=== PATIENT | male | born 1945 | race Caucasian/White ===

== ENCOUNTER 2020-01-30 17:57 | Inpatient (IN) ==
[~2020-01-30 17:57] MED LIST: HEPARIN (PORCINE) 1000 UNIT/ML 10 ML (CATH LAB USE ONLY) ONE; MIDAZOLAM HCL 1 MG/ML 2ML VIAL ONE; NITROGLYCERIN/D5W 100MCG/ML 20ML SYR ONE; fentaNYL citrate 100 MCG/2 ML VIAL ONE; niCARdipine HCL INJ 2.5 MG/ML 10 ML AMP ONE
--- OUTSIDE RECORDS SUMMARY | 2020-01-30 17:59 | External Medical Summary | Continuity of Care Document ---
:1945 Author Name Alcon Sandoval Address Unavailable Unavailable , Care Team Providers Name Role Phone Matthias Sandoval Unavailable [email or web address] Active medical history not documented Allergies and Adverse Reactions Allergy history not documented Medications Medications not documented Procedures Procedures not documented Immunizations Immunizations not documented Plan of Treatment Planned Observations Planned Goals not documented Results No Known Results Results not documented
--- NOTE | 2020-01-30 18:07 | Emergency Department Note ---
History of Present Illness General Chief complaint: Heart Alert Stated complaint: FALL, ORAL INJUIRES, CHEST PAIN, Source: patient and EMS Mode of arrival: EMS Limitations: no limitations History of Present Illness Provider complaint: Chest pain, syncope, facial injury Onset (ago): hour(s) 2 Location: face and chest Radiation: non-radiation Severity: moderate Pain Consistency: + constant Current Pain Intensity: 5 Quality: + constant Relieved By: + none Exacerbated By: + movement Associated symptoms: + syncope; no fever/chills, no nausea/vomiting and no shortness of breath This is a 75-year-old male brought in via EMS as a heart alert which was called prior to their arrival. Patient states around 330 this afternoon he was in his workshop when he began having chest pain, dizziness, and then passed out. Patient states he came to very quickly although felt so bad he could not get up off the floor. Patient did not have a phone nearby to call for help. Until a passerby found him he laid there on the floor. They called 911. On EMS arrival patient was found to be bradycardic, hypotensive, diaphoretic and pale with complaints of active chest pain. There EKG was concerning for a STEMI. A heart alert was called. Patient remained bradycardic and borderline hypotensive in route. Patient was given 75 mcg of fentanyl in route due to pain. Patient was also given 4 baby aspirin. Nitro was withheld due to hypotension and concern for inferior heart attack. Prior to patient arrival, case management was able to obtain recent outpatient records on the patient from [facility] EMR. Patient has had 3 prior cardiac catheterizations with apparent stenting to the LAD and RCA. Patient takes a baby aspirin, no other anticoagulation. Patient sees Dr. Pedroza, cardiology. Last cardiac catheterization was in 2014. Patient denies any current headache, abdominal pain, nausea or vomiting, vision changes, or tinnitus. Patient states he is still having pain, however it was mildly improved following the fentanyl, and is still nonradiating. Patient denies any difficulty breathing. Patient denies any recent illness. Patient states his tetanus shot is up-to-date. Patient states he is aware he is missing his 2 front teeth as these were part of dentures in place. Dr. Jain presented to the room shortly after patient's arrival. Pt seen during a time of high acuity and national emergency pandemic while wearing PPE. Home Medications Medication Instructions Recorded Confirmed Type aspirin [Aspir-Low] 81 mg PO DAILY 01/30/20 01/30/20 History cholecalciferol (vitamin D3) 25 mcg PO DAILY 01/30/20 01/30/20 History furosemide 20 mg PO 2XWK 01/30/20 01/30/20 History isosorbide mononitrate 120 mg PO DAILY 01/30/20 01/30/20 History latanoprost 1 drp OPB HS 01/30/20 01/30/20 History lisinopril 20 mg PO DAILY 01/30/20 01/30/20 History metoprolol tartrate 25 mg PO QPM 01/30/20 01/30/20 History metoprolol tartrate 50 mg PO QAM 01/30/20 01/30/20 History nitroglycerin 0.4 mg SUBLINGUAL .PRN/UD PRN 01/30/20 01/30/20 History omega 2-kgj-lbr-fish oil [Fish Oil] 1 cap PO DAILY 01/30/20 01/30/20 History potassium citrate 10 meq PO BID 01/30/20 01/30/20 History rosuvastatin 20 mg PO DAILY 01/30/20 01/30/20 History Allergies Allergy/AdvReac Type Severity Reaction Status Date / Time simvastatin AdvReac myalgia Unverified 01/30/20 21:50 Past Med/Surg History Medical History CAD (coronary atherosclerotic disease) Hyperlipidemia Hypertension Social History Smoking Status: Never smoker Do You Dip or Chew Tobacco: Yes; Tobacco Cessation Education Requested by Patient: No Hx Alcohol Use: Yes Alcohol type: beer Hx Substance Use: No Preferred Language: Hebrew Communication Ability: Effective Director Community Organization Required: No Beliefs That Will Affect Care: None Current Living Situation: Alone Other Information That Helps Us Care for You: No Feels Safe at Home: Yes Safety Concerns: Feels Safe At This Time Assistive Devices: Glasses Review of Systems See HPI for pertinent positives & negatives. and A total of 10 systems reviewed and were otherwise negative Physical Exam Vital Signs Vital Signs - 24 hr 01/30/20 18:04 01/30/20 18:09 01/30/20 18:10 Temperature 36.7 C Temperature Source Oral Pulse Rate 48 L Respiratory Rate 16 Blood Pressure 116/47 L Blood Pressure Mean 70 Pulse Oximetry 90 90 90 Oxygen Delivery Method Room Air Room Air Room Air Sepsis Recent Fever Within 48 Hours No Sepsis New/Unexplained Change in Mental Status N/A Sepsis Action Taken by Nursing No Action Required GENERAL: alert, unwell appearing, well nourished, no distress, non-toxic HEAD: nc/at, no green sign, no raccoon eyes, no midface instability EYE EXAM: normal conjunctiva, PERRL and EOM's grossly intact OROPHARYNX: no exudate, no erythema, lips, buccal mucosa, and tongue normal and mucous membranes are moist, front 2 teeth from partial dentures are missing, EMS reported they were laying on the ground on scene, no additional blood noted to the gums or in the oropharynx, slight edema and dried blood noted at lower lip with through and through laceration below approximately 2 cm on external surface of chin, no active bleeding NECK: supple, no nuchal rigidity, no adenopathy, non-tender, FROM LUNGS: Clear to auscultation. Normal chest wall mechanics, no w/r/r HEART: no murmurs, S1 normal and S2 normal CHEST WALL: No ecchymosis, no crepitus, no evidence of trauma ABDOMEN: abdomen soft, non-tender, normo-active bowel sounds, no masses, no rebound or guarding. No evidence of trauma. BACK: Back is symmetrical on inspection and there is no deformity, no midline tenderness, no CVA tenderness. SKIN: no rashes and no bruising UPPER EXTREMITIES: upper extremities are grossly normal. FROM, nml pulses b/l. No evidence of trauma. LOWER EXTREMITIES: No pitting edema. FROM, nml pulses b/l. No evidence of trauma. NEURO EXAM: Normal sensorium, cranial nerves II-XII grossly intact, normal speech, no gross weakness of arms, no gross weakness of legs. Gross sensation intact. Course Administered Medications Acetaminophen (Acetaminophen 325 Mg Tab) 325 mg PO Q6H PRN PRN Reason: Mild Pain Stop: 03/01/20 04:34 Last Admin: 01/31/20 07:59 Dose: 325 mg Documented by: [id number] Aspirin (Aspirin 81 Mg Ectab) 81 mg PO QAM [facility] Stop: 03/01/20 08:59 Last Admin: 01/31/20 08:00 Dose: 81 mg Documented by: [id number] Hydromorphone HCl (Hydromorphone Inj 0.5 Mg/0.5 Ml Syr) 0.5 mg IV Q3H PRN PRN Reason: Pain Stop: 02/13/20 21:20 Last Admin: 01/31/20 02:42 Dose: 0.5 mg Documented by: [id number] Insulin Aspart (Insulin Aspart 100 Units/Ml 3 Ml Pen) 0 units SC ACHS JAVIER Stop: 03/01/20 11:29 Last Admin: 01/31/20 12:12 Dose: 10 units Documented by: [id number] Cosigned by: [id number] Insulin Glargine (Insulin Glargine Solostar 100 Units/Ml 3 Ml Pen) 5 units SC BID [facility] Stop: 03/01/20 08:59 Last Admin: 01/31/20 09:18 Dose: 5 units Documented by: [id number] Cosigned by: [id number] Latanoprost (Latanoprost 0.005% Op Soln 2.5 Ml Btl) 1 drops OPB HS [facility] Stop: 02/29/20 21:54 Last Admin: 01/30/20 22:31 Dose: 1 drops Documented by: [id number] Lisinopril (Lisinopril 5 Mg Tab) 5 mg PO QAM [facility] Stop: 03/01/20 08:59 Last Admin: 01/31/20 08:01 Dose: 5 mg Documented by: [id number] Metoprolol Tartrate (Metoprolol Tartrate 25 Mg Tab) 12.5 mg PO BID JAVIER Stop: 02/29/20 20:59 Last Admin: 01/31/20 08:00 Dose: 12.5 mg Documented by: [id number] Admin: 01/30/20 22:14 Dose: 12.5 mg Documented by: [id number] Ticagrelor (Ticagrelor 90 Mg Tab) 90 mg PO BID [facility] Stop: 03/01/20 08:59 Last Admin: 01/31/20 08:01 Dose: 90 mg Documented by: [id number] Tramadol HCl (Tramadol Hcl 50 Mg Tablet) 25 - 50 mg PO Q4H PRN PRN Reason: Pain Stop: 02/29/20 21:20 Last Admin: 01/31/20 06:26 Dose: 50 mg Documented by: [id number] Vitamin D (Cholecalciferol 1,000 Units 25 Mcg Tab) 1,000 units PO DAILY [facility] Stop: 03/01/20 08:59 Last Admin: 01/31/20 09:21 Dose: 1,000 units Documented by: [id number] Discontinued Medications Eptifibatide (Eptifibatide 2 Mg/Ml 10 Ml Vial ([facility] Use Only)) Confirm Administered Dose 20 mg IV .STK-MED ONE Stop: 01/30/20 18:46 Last Admin: 01/30/20 22:30 Dose: Not Given Documented by: [id number] Eptifibatide (Eptifibatide 0.75 Mg/Ml 75mg Vial ([facility] Use Only)) Confirm Administered Dose 75 mg .ROUTE .STK-MED ONE Stop: 01/30/20 18:47 Last Admin: 01/30/20 22:30 Dose: Not Given Documented by: [id number] Fentanyl Citrate (Fentanyl Citrate 100 Mcg/2 Ml Vial) Confirm Administered Dose 100 mcg .ROUTE .STK-MED ONE Stop: 01/30/20 17:57 Last Admin: 01/30/20 22:28 Dose: Not Given Documented by: [id number] Heparin Sodium (Porcine) (Heparin (Porcine) 1000 Unit/Ml 10 Ml ([facility] Use Only)) Confirm Administered Dose 10,000 units .ROUTE .STK-MED ONE Stop: 01/30/20 17:56 Last Admin: 01/30/20 22:28 Dose: Not Given Documented by: [id number] Heparin Sodium (Porcine) (Heparin (Porcine) 1000 Unit/Ml 10 Ml ([facility]wall Stripper Use Only)) Confirm Administered Dose 10,000 units .ROUTE .STK-MED ONE Stop: 01/30/20 19:03 Last Admin: 01/30/20 22:30 Dose: Not Given Documented by: [id number] Heparin Sodium/Sodium Chloride (Heparin In Nss Infusion 1000 Unit/500 Ml (2 U/Ml) Bag) Confirm Administered Dose 3,000 units IV .STK-MED ONE Stop: 01/30/20 17:57 Last Admin: 01/30/20 22:29 Dose: Not Given Documented by: [id number] Sodium Chloride (Nss 1000ml) 1,000 mls @ 100 mls/hr IV .Q10H JAVIER Stop: 01/31/20 03:44 Last Infusion: 01/31/20 08:43 Dose: 0 mls/hr Documented by: [id number] Admin: 01/30/20 22:15 Dose: 100 mls/hr Documented by: [id number] Magnesium Sulfate/Dextrose (Magnesium Sulfate / D5w) 1 gm in 100 mls @ 50 mls/hr IV ONE ONE Stop: 01/31/20 08:54 Last Infusion: 01/31/20 10:01 Dose: 0 mls/hr Documented by: [id number] Admin: 01/31/20 07:59 Dose: 50 mls/hr Documented by: [id number] Potassium Chloride (K Norman / Wtr) 10 meq in 100 mls @ 100 mls/hr IV Q1H JAVIER Stop: 01/31/20 08:54 Last Infusion: 01/31/20 10:01 Dose: 0 mls/hr Documented by: [id number] Admin: 01/31/20 08:46 Dose: 100 mls/hr Documented by: [id number] Infusion: 01/31/20 08:46 Dose: 100 mls/hr Documented by: [id number] Admin: 01/31/20 07:59 Dose: 100 mls/hr Documented by: [id number] Midazolam HCl (Midazolam Hcl 1 Mg/Ml 2ml Vial) Confirm Administered Dose 2 mg .ROUTE .STK-MED ONE Stop: 01/30/20 17:56 Last Admin: 01/30/20 22:28 Dose: Not Given Documented by: [id number] Midazolam HCl (Midazolam Hcl 1 Mg/Ml 2ml Vial) Confirm Administered Dose 2 mg .ROUTE .STK-MED ONE Stop: 01/30/20 19:13 Last Admin: 01/30/20 22:30 Dose: Not Given Documented by: [id number] Nicardipine HCl (Nicardipine Hcl Inj 2.5 Mg/Ml 10 Ml Amp) Confirm Administered Dose 25 mg .ROUTE .STK-MED ONE Stop: 01/30/20 17:56 Last Admin: 01/30/20 22:25 Dose: Not Given Documented by: [id number] Nitroglycerin/Dextrose (Nitroglycerin/D5w 100mcg/Ml 20ml Syr) Confirm Administered Dose 2,000 mcg .ROUTE .STK-MED ONE Stop: 01/30/20 17:57 Last Admin: 01/30/20 22:29 Dose: Not Given Documented by: [id number] Norepinephrine Bitartrate (Norepinephrine Bitartrate 1 Mg/Ml 4 Ml Vial ([facility] Use Only)) Confirm Administered Dose 4 mg .ROUTE .STK-MED ONE Stop: 01/30/20 18:48 Last Admin: 01/30/20 22:30 Dose: Not Given Documented by: [id number] Ondansetron HCl (Ondansetron Inj 2 Mg/Ml 2 Ml Vial) Confirm Administered Dose 4 mg .ROUTE .STK-MED ONE Stop: 01/30/20 18:20 Last Admin: 01/30/20 22:29 Dose: Not Given Documented by: [id number] Potassium Chloride (Potassium Chloride Crtab 20 Meq Tabcr) 40 meq PO ONE ONE Stop: 01/30/20 21:01 Last Admin: 01/30/20 22:15 Dose: 40 meq Documented by: [id number] Ticagrelor (Ticagrelor 90 Mg Tab) Confirm Administered Dose 180 mg PO .STK-MED ONE Stop: 01/30/20 19:57 Last Admin: 01/30/20 20:05 Dose: 180 mg Documented by: [id number] Critical Care Time Critical Care Time: Yes Total Critical Care Time: 35 Critical care of 35 min performed to assess and manage high likelihood of life- threatening STEMI, involving labs and imaging performed with assessment to evaluate ACS diagnosis with frequent reassessment. This time includes bedside time, treatment discussions with patient/family/consultants, documentation time and excludes procedure time. Medical Decision Making Differential Diagnosis Differential diagnoses includes but is not limited to acute coronary syndrome, myocardial infarction, pericarditis, pulmonary embolus, aortic dissection, pneumonia, pneumothorax, musculoskeletal, shingles, esophageal. Medical Records Attestation: I reviewed the patient's medical records. Home Medications Current Medication List: was personally reviewed by me Laboratory Data Attestation: I reviewed the patient's lab results. Result diagrams: 01/31/20 02:21 01/31/20 05:18 Lab Results 01/30/20 01/30/20 01/30/20 Range/Units 18:00 18:06 18:06 WBC 14.64 H (4.8-10.8) K/uL RBC 4.61 L (4.7-6.1) M/uL Hgb 14.0 (14.0-18.0) g/dL Hct 42.1 (42-52) % MCV 91.3 (80-100) fL MCH 30.4 (25-34) pg MCHC 33.3 (32-36) g/dL RDW Std Deviation 48.0 H (36.4-46.3) fL RDW Coeff of Wayne 14.4 (11.5-14.5) % Plt Count 223 (130-400) K/uL MPV 9.5 (7.4-10.4) fL Immature Gran % (Auto) 0.3 % Neut % (Auto) 67.2 % Lymph % (Auto) 20.4 % Antelope % (Auto) 10.2 % Eos % (Auto) 1.8 % Baso % (Auto) 0.1 % Neut # (Auto) 9.83 H (1.4-6.5) K/uL Lymph # (Auto) 2.98 (1.2-3.4) K/uL Antelope # (Auto) 1.50 H (0.11-0.59) K/uL Eos # (Auto) 0.26 (0-0.5) K/uL Baso # (Auto) 0.02 (0-0.2) K/uL Immature Gran # (Auto) 0.05 H (0.00-0.02) K/uL PT (9.0-12.0) Seconds INR (0.9-1.1) APTT (21.0-31.0) Seconds PTT Ratio Activ Coag Time Kaolin (94-140) SECONDS Sodium (136-145) mmol/L Potassium (3.5-5.1) mmol/L Chloride (98-107) mmol/L Carbon Dioxide (21-32) mmol/L Anion Gap (3-11) BUN (7-18) mg/dl Creatinine (0.6-1.4) mg/dl Est Cr Clr Drug Dosing ml/min Est GFR ( Amer) Est GFR (Non-Af Amer) BUN/Creatinine Ratio (10-20) Glucose (70-99) mg/dl Calcium (8.5-10.1) mg/dl Magnesium (1.8-2.4) mg/dl Total Bilirubin (0.2-1) mg/dl AST (15-37) U/L ALT (12-78) U/L Alkaline Phosphatase (45-117) U/L Total Creatine Kinase (39-308) U/L CK-MB (CK-2) (0.5-3.6) ng/ml CK/CKMB % Calc (0-3.0) Troponin I (0-0.045) ng/ml Total Protein (6.4-8.2) gm/dl Albumin (3.4-5.0) gm/dl Globulin (2.5-4.0) gm/dl Albumin/Globulin Ratio (0.9-2) Lipase (73-393) U/L TSH (0.300-4.500) uIu/ml SARS-CoV-2 Ag (Rapid) Negative (Negative) Blood Type O Positive Antibody Screen NEGATIVE 01/30/20 01/30/20 01/30/20 Range/Units 18:06 18:06 18:58 WBC (4.8-10.8) K/uL RBC (4.7-6.1) M/uL Hgb (14.0-18.0) g/dL Hct (42-52) % MCV (80-100) fL MCH (25-34) pg MCHC (32-36) g/dL RDW Std Deviation (36.4-46.3) fL RDW Coeff of Wayne (11.5-14.5) % Plt Count (130-400) K/uL MPV (7.4-10.4) fL Immature Gran % (Auto) % Neut % (Auto) % Lymph % (Auto) % Antelope % (Auto) % Eos % (Auto) % Baso % (Auto) % Neut # (Auto) (1.4-6.5) K/uL Lymph # (Auto) (1.2-3.4) K/uL Antelope # (Auto) (0.11-0.59) K/uL Eos # (Auto) (0-0.5) K/uL Baso # (Auto) (0-0.2) K/uL Immature Gran # (Auto) (0.00-0.02) K/uL PT 11.1 (9.0-12.0) Seconds INR 1.1 (0.9-1.1) APTT 24.8 (21.0-31.0) Seconds PTT Ratio 0.9 Activ Coag Time Kaolin 224 H (94-140) SECONDS Sodium 144 (136-145) mmol/L Potassium 3.4 L (3.5-5.1) mmol/L Chloride 109 H (98-107) mmol/L Carbon Dioxide 25 (21-32) mmol/L Anion Gap 10.0 (3-11) BUN 22 H (7-18) mg/dl Creatinine 1.59 H (0.6-1.4) mg/dl Est Cr Clr Drug Dosing 51.4 ml/min Est GFR ( Amer) 47.8 Est GFR (Non-Af Amer) 41.3 BUN/Creatinine Ratio 13.8 (10-20) Glucose 176 H (70-99) mg/dl Calcium 8.8 (8.5-10.1) mg/dl Magnesium 2.0 (1.8-2.4) mg/dl Total Bilirubin 0.4 (0.2-1) mg/dl AST 57 H (15-37) U/L ALT 63 (12-78) U/L Alkaline Phosphatase 48 (45-117) U/L Total Creatine Kinase 167 (39-308) U/L CK-MB (CK-2) 2.1 (0.5-3.6) ng/ml CK/CKMB % Calc 1.3 (0-3.0) Troponin I 0.061 H* (0-0.045) ng/ml Total Protein 6.6 (6.4-8.2) gm/dl Albumin 3.2 L (3.4-5.0) gm/dl Globulin 3.4 (2.5-4.0) gm/dl Albumin/Globulin Ratio 0.9 (0.9-2) Lipase 170 (73-393) U/L TSH 4.370 (0.300-4.500) uIu/ml SARS-CoV-2 Ag (Rapid) (Negative) Blood Type Antibody Screen 01/30/20 Range/Units 19:44 WBC (4.8-10.8) K/uL RBC (4.7-6.1) M/uL Hgb (14.0-18.0) g/dL Hct (42-52) % MCV (80-100) fL MCH (25-34) pg MCHC (32-36) g/dL RDW Std Deviation (36.4-46.3) fL RDW Coeff of Wayne (11.5-14.5) % Plt Count (130-400) K/uL MPV (7.4-10.4) fL Immature Gran % (Auto) % Neut % (Auto) % Lymph % (Auto) % Antelope % (Auto) % Eos % (Auto) % Baso % (Auto) % Neut # (Auto) (1.4-6.5) K/uL Lymph # (Auto) (1.2-3.4) K/uL Antelope # (Auto) (0.11-0.59) K/uL Eos # (Auto) (0-0.5) K/uL Baso # (Auto) (0-0.2) K/uL Immature Gran # (Auto) (0.00-0.02) K/uL PT (9.0-12.0) Seconds INR (0.9-1.1) APTT (21.0-31.0) Seconds PTT Ratio Activ Coag Time Kaolin 230 H (94-140) SECONDS Sodium (136-145) mmol/L Potassium (3.5-5.1) mmol/L Chloride (98-107) mmol/L Carbon Dioxide (21-32) mmol/L Anion Gap (3-11) BUN (7-18) mg/dl Creatinine (0.6-1.4) mg/dl Est Cr Clr Drug Dosing ml/min Est GFR ( Amer) Est GFR (Non-Af Amer) BUN/Creatinine Ratio (10-20) Glucose (70-99) mg/dl Calcium (8.5-10.1) mg/dl Magnesium (1.8-2.4) mg/dl Total Bilirubin (0.2-1) mg/dl AST (15-37) U/L ALT (12-78) U/L Alkaline Phosphatase (45-117) U/L Total Creatine Kinase (39-308) U/L CK-MB (CK-2) (0.5-3.6) ng/ml CK/CKMB % Calc (0-3.0) Troponin I (0-0.045) ng/ml Total Protein (6.4-8.2) gm/dl Albumin (3.4-5.0) gm/dl Globulin (2.5-4.0) gm/dl Albumin/Globulin Ratio (0.9-2) Lipase (73-393) U/L TSH (0.300-4.500) uIu/ml SARS-CoV-2 Ag (Rapid) (Negative) Blood Type Antibody Screen ECG Data Attestation: I personally reviewed and interpreted this ECG as follows: Indication: + chest pain Rate (beats per minute): 47 Rhythm: + sinus bradycardia ECG Intervals/blocks: + Normal QRS and + Prolonged QT ECG [place]: + Normal ECG ST segments: + ST depression (I, aVL, V2) and + ST elevation (Inferior) Comparison ECG Date: from (today via ems) Blood Pressure Blood Pressure Findings: Low blood pressure MDM Narrative This is an ill-appearing 75-year-old who presents the emergency room as a heart alert which was called prehospital. Patient reports preceding chest pain followed by dizziness which resulted in a syncopal event. Given he initially was bradycardic and hypotensive for EMS and still bradycardic on arrival here I suspect that with his evolving ID as his heart rate and blood pressure dropped this contributed to the dizziness and loss of consciousness. There was evidence of contusion to the lower lip, a through and through laceration to the lower lip, and loss of his front 2 teeth which she states were part of his partial de ntures. Patient only complained of pain to that lower lip, had no other midface instability, no other evidence of head trauma. Case management was able to pull records from [facility], and it was noted patient takes aspirin daily no other anticoagulation. Both myself and Dr. Jain were able to review the patient's prior cardiology note which included his prior cardiac catheterizations and interventions. IV fluids were continued here and patient's blood pressure remained stable, patient did remain bradycardic. Due to concern for head and facial trauma and need for additional blood thinners during his cardiac cath, Dr. Jain and I discussed patient going emergently to CT and then directly to [facility]. We agreed that this was the safest and most reasonable course of action to rule out any intracranial hemorrhage prior to being anticoagulated in the [facility]. I have a low suspicion for intracranial hemorrhage as well as other intrathoracic or intra-abdominal trauma at this time. I called over to the facilities maintenance technician to make them aware of the situation, and then placed orders for a CT of the head, facial bones, and C-spine given mechanism. I discussed with Dr. Jain the patient stated his tetanus shot was up-to-date, however following the catheterization he would need repair of the laceration externally, and this could hopefully be repaired and followed up on by the admitting team. Patient denied any other focal complaints of pain or injury, was still having active chest pain despite the fentanyl given by EMS, no additional pain medications given in the emergency room due to soft blood pressure. Patient went emergently to CT and then to the [facility] with Dr. Jain. I did call the [facility] admitting team and spoke to Wilson Jimenez while patient was done on CT to make them aware of the situation as the patient would end up on their service. I did make her aware of the plan for CTs first that would need to be followed up in the patient would need repair of the laceration that was noted during my exam. She is aware and will follow up once patient is out of the [facility]. She will make the attending, Dr. Munoz aware of the situation also. Covid swab was performed during his initial evaluation prior to patient leaving the ED, other labs were drawn and sent but were not resulted prior to him leaving the department. An order was placed for continuous cardiac monitoring. The monitor shows a rate of 52_ with _sinus bradycardia_ rhythm. Impression & Plan ST elevation (STEMI) myocardial infarction, Chest pain, Syncope, CHI (closed head injury), Contusion of face, Facial laceration Discharge Plan Visit Data Chief Complaint: Heart Alert Stated Complaint: FALL, ORAL INJUIRES, CHEST PAIN, ED Provider: Christin Dangelo Discharge Problem: ST elevation (STEMI) myocardial infarction, Chest pain, Syncope, CHI (closed head injury), Contusion of face, Facial laceration Patient Disposition: Still a Patient Discharge Instructions Interventions: ED Discharge Assessment Last Done: 01/30/20 18:13 Discharge Problem: ST elevation (STEMI) myocardial infarction Qualifiers: Involved coronary artery: unspecified coronary artery Qualified Code(s): I21.3 - ST elevation (STEMI) myocardial infarction of unspecified site Chest pain Qualifiers: Chest pain type: chest pain due to myocardial ischemia Ischemic chest pain type: unspecified angina pectoris type Qualified Code(s): I25.9 - Chronic ischemic heart disease, unspecified Syncope Qualifiers: Syncope type: unspecified Qualified Code(s): R55 - Syncope and collapse CHI (closed head injury) Qualifiers: Encounter type: initial encounter Qualified Code(s): S09.90XA - Unspecified injury of head, initial encounter Contusion of face Qualifiers: Encounter type: initial encounter Qualified Code(s): S00.83XA - Contusion of other part of head, initial encounter Facial laceration Qualifiers: Encounter type: initial encounter Qualified Code(s): S01.81XA - Laceration without foreign body of other part of head, initial encounter
[2020-01-30] MEDS ORDERED: ONDANSETRON INJ 2 MG/ML 2 ML VIAL ONE (18:19)
[2020-01-30 18:20] LABS: Basophils # (auto) 0.02 K/uL (0-0.2); Basophils % (auto) 0.1 %; Eosinophils # (auto) 0.26 K/uL (0-0.5); Eosinophils % (auto) 1.8 %; Hematocrit (blood only) 42.1 % (42-52); Immature Granulocytes # (auto) 0.05 K/uL (0.00-0.02); Immature Granulocytes % (auto) 0.3 %; Lymphocytes # (auto) 2.98 K/uL (1.2-3.4); Lymphocytes % (auto) 20.4 %; Mean Corpuscular Hemoglobin 30.4 pg (25-34); Mean Corpuscular Hgb Conc 33.3 g/dL (32-36); Mean Corpuscular Volume 91.3 fL (80-100); Mean Platelet Volume 9.5 fL (7.4-10.4); Monocytes % (auto) 10.2 %; Neutrophils # (auto) 9.83 K/uL (1.4-6.5); Neutrophils % (auto) 67.2 %; Platelet Count 223 K/uL (130-400); RDW Coefficient of Variation 14.4 % (11.5-14.5); Red Blood Count 4.61 M/uL (4.7-6.1); White Blood Count 14.64 K/uL (4.8-10.8)
--- NOTE | 2020-01-30 18:23 | CT Scan Report ---
CT head/brain wo con CLINICAL HISTORY: Head pain status post trauma COMPARISON STUDY: No previous studies for comparison. TECHNIQUE: Axial CT of the brain is performed from the vertex to the skull base. IV contrast was not administered for this examination. A dose lowering technique was utilized adhering to the principles of ALARA. CT DOSE: FINDINGS: No intra or extra-axial mass lesions are visualized. There is no CT evidence of acute cortical infarc tion. There is no evidence of midline shift. There is no acute hemorrhage. No calvarial fractures ar e visualized. There are patchy white matter hypodensities likely on a small vessel basis. There is no evidence of pathologic ventricular dilatation. There is no evidence of acute sinusitis. There is a small calcific density within the left frontal sc alp. There is a suspected fracture of the right mandibular condyle. If facial CT scan is recommended in fo llow-up. IMPRESSION: 1. No acute intracranial findings 2. Suspected fracture of the right mandibular condyle ACT 112: Negative or not required by law. Electronically signed by: Henri Guerrero M.D. 01/30/2020 6:22 PM
--- NOTE | 2020-01-30 18:24 | CT Scan Report ---
CT OF THE CERVICAL SPINE CLINICAL HISTORY: Neck pain status post trauma COMPARISON STUDY: No previous studies for comparison. CT DOSE: TECHNIQUE: CT scan of the cervical spine was performed from the skull base to the thoracic inlet. Kitty ges are reviewed in the axial, sagittal, and coronal planes. IV contrast was not administered for thi s examination. A dose lowering technique was utilized adhering to the principles of ALARA. FINDINGS: The visualized portions of the lung apices reveal no evidence of pneumothorax. The prevertebral soft tissues are normal. No fractures or subluxations are visualized. There are multilevel degenerative changes There is a fracture through the base the right mandibular condyle IMPRESSION: 1. No evidence of acute cervical spine fracture or traumatic subluxation 2. Acute fracture involving the base of the right mandibular condyle ACT 112: Negative or not required by law. Electronically signed by: Henri Guerrero M.D. 01/30/2020 6:22 PM
--- NOTE | 2020-01-30 18:28 | CT Scan Report ---
CT facial bones wo con CT DOSE: 1443.18 mGy.cm CLINICAL HISTORY: Facial pain status post trauma COMPARISON STUDY: No previous studies for comparison. TECHNIQUE: Helical images were acquired in the transverse plane. The study was reviewed and analyzed on the independent 3-D workstation. A dose lowering technique was utilized adhering to the principle s of ALARA. The pterygoid plates appear intact. The zygomatic arches appear intact. The globes appear intact. There is no evidence of orbital emphysema. The orbital irving and floor appear intact. There is acute fracture through the base of the right mandibular condyle. There is no evidence of condylar dislocation There is mild mucosal thickening/fluid within the right maxillary sinus. IMPRESSION: 1. Acute fracture through the base the right mandibular condyle 2. No additional facial fractures identified ACT 112: Negative or not required by law. Electronically signed by: Henri Guerrero M.D. 01/30/2020 6:27 PM
[2020-01-30 18:31] LABS: INR 1.1 (0.9-1.1); Partial Thromboplastin Ratio 0.9; Partial Thromboplastin Time 24.8 Seconds (21.0-31.0); Prothrombin Time 11.1 Seconds (9.0-12.0)
[2020-01-30 18:37] LABS: Albumin Level 3.2 gm/dl (3.4-5.0); BUN Creatinine Ratio 13.8 (10-20); Calcium 8.8 mg/dl (8.5-10.1); Creatinine Clr Calc Pharmacy 51.4 ml/min; Est GFR (African American) 47.8; Est GFR (Non-African American) 41.3; Potassium 3.4 mmol/L (3.5-5.1)
[2020-01-30] MEDS ORDERED: EPTIFIBATIDE 2 MG/ML 10 ML VIAL (CATH LAB USE ONLY) IV ONE (18:45)
[2020-01-30] MEDS ORDERED: EPTIFIBATIDE 0.75 MG/ML 75MG VIAL (CATH LAB USE ONLY) ONE (18:46)
[2020-01-30] MEDS ORDERED: NOREPINEPHRINE BITARTRATE 1 MG/ML 4 ML VIAL (CATH LAB USE ONLY) ONE (18:47)
[2020-01-30 18:53] LABS: Albumin Globulin Ratio 0.9 (0.9-2); Bilirubin,Total 0.4 mg/dl (0.2-1); Creatine Kinase MB 2.1 ng/ml (0.5-3.6); Globulin 3.4 gm/dl (2.5-4.0); Thyroid Stimulating Hormone 4.37 uIu/ml (0.300-4.500); Total Protein 6.6 gm/dl (6.4-8.2); Troponin I 0.061 ng/ml (0-0.045)
[2020-01-30] MEDS ORDERED: HEPARIN (PORCINE) 1000 UNIT/ML 10 ML (CATH LAB USE ONLY) ONE (19:02)
[2020-01-30] MEDS ORDERED: MIDAZOLAM HCL 1 MG/ML 2ML VIAL ONE (19:12)
[2020-01-30] MEDS ORDERED: TICAGRELOR 90 MG TAB PO ONE (19:56)
[2020-01-30] MEDS ORDERED: ACETAMINOPHEN 325 MG TAB PO PRN (20:10)
[2020-01-30] MEDS ORDERED: ONDANSETRON INJ 2 MG/ML 2 ML VIAL IV PRN (20:10)
[2020-01-30] MEDS ORDERED: ICU PROTOCOL FOR HYPERGLYCEMIA PRN ×2 (20:10→21:21)
[2020-01-30] MEDS ORDERED: SODIUM CHLORIDE 0.9% 1000ML 1,000 ML IV SCH (20:15)
--- NOTE | 2020-01-30 20:15 | History & Physical Report ---
Date of Service January 30, 2020 Assessment & Plan (1) ST elevation (STEMI) myocardial infarction: hx CAD status post stent Multivessel CAD on diagnostic cardiac cath - 100% RCA occlusion status post CODY placement - 30% ostial, 40% distal left main 60% hazy ostial/proximal LAD, 40% mid LAD in-stent restenosis 80% ostial circumflex/high OM1 Syncope secondary to symptomatic bradycardia secondary to inferior STEMI Mild CHF PVD status post surgery hypertension, currently stable hyperlipidemia on statin Rx Traumatic mandibular condyle fracture right ARF Anemia likely from head trauma Hyperglycemia likely prediabetes, hemoglobin A1c of 6.1 2017 Hypokalemia secondary to home diuretic Rx past tobacco abuse ICU monitoring post PCI Management of cardiac issues as per Cardiology. Watch out for pulmonary congestion with post PCI IVF Baseline UA, hold AYO inhibitor until creatinine back to baseline Soft diet for now, Oromaxillofacial consult Re: Right mandibular condyle fracture Follow H&H transfuse PRBC if hemoglobin less than 8 and or for symptomatic anemia Check hemoglobin A1c DVT prophylaxis. SCDs RE recent facial/oral bleeding trauma Full code Text document was generated using [employer] voice recognition software. It may contain grammatical or spelling errors. Kindly contact undersigned for clarification of any documentation item in question. History of Present Illness Chief Complaint: Chest pain, syncope Primary Care Provider: Brandon Hidalgo DO History obtained from patient and records. Medical history significant for CAD status post stent, PVD status post surgery, hypertension, hyperlipidemia, past tobacco abuse. Patient was at his workshop yesterday when he noted burning substernal chest pain without radiation similar to heart attack in the past. Patient noted dizziness described as lightheadedness followed by unwitnessed syncopal event. Patient woke up with right-sided jaw pain, missing 2 front teeth, and a bleeding laceration on his chin. He was able to call to a phone in his office and was able to call EMS. Patient noted to be hypotensive and bradycardic upon arrival of EMS. ST elevations noted in the inferior leads. Heart alert called upon arrival at the ER. Emergent cardiac catheterization and PCI subsequently done. Patient currently comfortable at the ICU watching television. Medical History as above Surgical History : Appendectomy, thromboendarterectomy Family History : Colon cancer Personal/Social history : Past tobacco abuse, occasional EtOH intake, businessman Allergies Allergy/AdvReac Type Severity Reaction Status Date / Time simvastatin AdvReac myalgia Unverified 12/21/20 21:50 Home Medications Medication Instructions Recorded Confirmed Type aspirin [Aspir-Low] 81 mg PO DAILY 01/30/20 01/30/20 History cholecalciferol (vitamin D3) 25 mcg PO DAILY 01/30/20 01/30/20 History furosemide 20 mg PO 2XWK 01/30/20 01/30/20 History isosorbide mononitrate 120 mg PO DAILY 01/30/20 01/30/20 History latanoprost 1 drp OPB HS 01/30/20 01/30/20 History lisinopril 20 mg PO DAILY 01/30/20 01/30/20 History metoprolol tartrate 25 mg PO QPM 01/30/20 01/30/20 History metoprolol tartrate 50 mg PO QAM 01/30/20 01/30/20 History nitroglycerin 0.4 mg SUBLINGUAL .PRN/UD PRN 01/30/20 01/30/20 History omega 9-nkq-uvi-fish oil [Fish Oil] 1 cap PO DAILY 01/30/20 01/30/20 History potassium citrate 10 meq PO BID 01/30/20 01/30/20 History rosuvastatin 20 mg PO DAILY 01/30/20 01/30/20 History Past Med/Surg History Medical History CAD (coronary artery disease) of artery bypass graft Hyperlipidemia Hypertension Social History Smoking Status: Never smoker Do You Dip or Chew Tobacco: Yes; Tobacco Cessation Education Requested by Patient: No Hx Alcohol Use: Yes Alcohol type: beer Hx Substance Use: No Preferred Language: Lao Communication Ability: Effective Time Clock Inspector Required: No Beliefs That Will Affect Care: None Current Living Situation: Alone Other Information That Helps Us Care for You: No Feels Safe at Home: Yes Safety Concerns: Feels Safe At This Time Assistive Devices: Glasses Review of Systems Review of Systems: As per HPI, all 10 systems reviewed, all other ROS negative Physical Exam Physical Exam: GENERAL: Comfortable, pleasant, obese, no respiratory distress SKIN: Normal color HEENT: Partial alopecia, [place] palpebral conjunctivae, no ptosis, dry buccal mucosa, dried blood per RN, Steri-Strip over mental NECK : Supple, short neck, no tenderness CHEST : CTA, no tenderness HEART : Bradycardic , no obvious murmurs ABDOMEN: Some distention, nontender EXTREMITIES : No LE swelling/tenderness, no other conspicuous deformities noted NEUROLOGIC : Coherent, no facial asymmetry, no other gross focality Results & Data Results & Data ([facility]) Vital Signs (Past 12 Hours) Vital Signs Temp Pulse Resp BP Pulse Ox 01/30/20 18:10 90 01/30/20 18:09 90 01/30/20 18:04 36.7 C 48 L 16 116/47 L 90 Laboratory Results Laboratory Results WBC 14.64 K/uL (4.8-10.8) H 01/30/20 18:06 RBC 4.61 M/uL (4.7-6.1) L 01/30/20 18:06 Hgb 14.0 g/dL (14.0-18.0) 01/30/20 18:06 Hct 42.1 % (42-52) 01/30/20 18:06 MCV 91.3 fL (80-100) 01/30/20 18:06 MCH 30.4 pg (25-34) 01/30/20 18:06 MCHC 33.3 g/dL (32-36) 01/30/20 18:06 RDW Std Deviation 48.0 fL (36.4-46.3) H 01/30/20 18:06 RDW Coeff of [place] 14.4 % (11.5-14.5) 01/30/20 18:06 Plt Count 223 K/uL (130-400) 01/30/20 18:06 MPV 9.5 fL (7.4-10.4) 01/30/20 18:06 Immature Gran % (Auto) 0.3 % 01/30/20 18:06 Neut % (Auto) 67.2 % 01/30/20 18:06 Lymph % (Auto) 20.4 % 01/30/20 18:06 [place] % (Auto) 10.2 % 01/30/20 18:06 Eos % (Auto) 1.8 % 01/30/20 18:06 Baso % (Auto) 0.1 % 01/30/20 18:06 Neut # (Auto) 9.83 K/uL (1.4-6.5) H 01/30/20 18:06 Lymph # (Auto) 2.98 K/uL (1.2-3.4) 01/30/20 18:06 [place] # (Auto) 1.50 K/uL (0.11-0.59) H 01/30/20 18:06 Eos # (Auto) 0.26 K/uL (0-0.5) 01/30/20 18:06 Baso # (Auto) 0.02 K/uL (0-0.2) 01/30/20 18:06 Immature Gran # (Auto) 0.05 K/uL (0.00-0.02) H 01/30/20 18:06 PT 11.1 Seconds (9.0-12.0) 01/30/20 18:06 INR 1.1 (0.9-1.1) 01/30/20 18:06 APTT 24.8 Seconds (21.0-31.0) 01/30/20 18:06 PTT Ratio 0.9 01/30/20 18:06 Sodium 144 mmol/L (136-145) 01/30/20 18:06 Potassium 3.4 mmol/L (3.5-5.1) L 01/30/20 18:06 Chloride 109 mmol/L (98-107) H 01/30/20 18:06 Carbon Dioxide 25 mmol/L (21-32) 01/30/20 18:06 Anion Gap 10.0 (3-11) 01/30/20 18:06 BUN 22 mg/dl (7-18) H 01/30/20 18:06 Creatinine 1.59 mg/dl (0.6-1.4) H 01/30/20 18:06 Est Cr Clr Drug Dosing 51.4 ml/min 01/30/20 18:06 Est GFR ( Amer) 47.8 01/30/20 18:06 Est GFR (Non-Af Amer) 41.3 01/30/20 18:06 BUN/Creatinine Ratio 13.8 (10-20) 01/30/20 18:06 Glucose 176 mg/dl (70-99) H 01/30/20 18:06 Calcium 8.8 mg/dl (8.5-10.1) 01/30/20 18:06 Magnesium 2.0 mg/dl (1.8-2.4) 01/30/20 18:06 Total Bilirubin 0.4 mg/dl (0.2-1) 01/30/20 18:06 AST 57 U/L (15-37) H 01/30/20 18:06 ALT 63 U/L (12-78) 01/30/20 18:06 Alkaline Phosphatase 48 U/L (45-117) 01/30/20 18:06 Total Creatine Kinase 167 U/L (39-308) 01/30/20 18:06 CK-MB (CK-2) 2.1 ng/ml (0.5-3.6) 01/30/20 18:06 CK/CKMB % Calc 1.3 (0-3.0) 01/30/20 18:06 Troponin I 0.061 ng/ml (0-0.045) H* 01/30/20 18:06 Total Protein 6.6 gm/dl (6.4-8.2) 01/30/20 18:06 Albumin 3.2 gm/dl (3.4-5.0) L 01/30/20 18:06 Globulin 3.4 gm/dl (2.5-4.0) 01/30/20 18:06 Albumin/Globulin Ratio 0.9 (0.9-2) 01/30/20 18:06 Lipase 170 U/L (73-393) 01/30/20 18:06 TSH 4.370 uIu/ml (0.300-4.500) 01/30/20 18:06 SARS-CoV-2 Ag (Rapid) Negative (Negative) 01/30/20 18:00 Blood Type O Positive 01/30/20 18:06 Antibody Screen NEGATIVE 01/30/20 18:[address] head: 1. No acute intracranial findings 2. Suspected fracture of the right mandibular condyle CT cervical spine: 1. No evidence of acute cervical spine fracture or traumatic subluxation 2. Acute fracture involving the base of the right mandibular condyle Facial CT: 1. Acute fracture through the base the right mandibular condyle 2. No additional facial fractures identified Chest x-ray : Cardiomegaly and mild nonspecific interstitial thickening. This could represent mild pulmonary vascular congestion or a subtle interstitial inflammatory process. No evidence of lobar consolidation. EKG as per my interpretation : Rate 45, junctional bradycardia, ST elevation inferior leads, ST depression lateral leads Code Status & VTE Plan VTE Prophylaxis Plan VTE Prophylaxis will be ordered: Yes (1) ST elevation (STEMI) myocardial infarction Involved coronary artery: unspecified coronary artery Qualified Code(s): I21.3 - ST elevation (STEMI) myocardial infarction of unspecified site
--- NOTE | 2020-01-30 20:24 | Post Operative Brief Note ---
Cardiology Brief Post Op Date of Surgery January 30, 2020 Pre & Post Diagnosis CAD Procedure PCI Washer Engineer Helper Duncan Jain MD Documentation Specialist Alfonso Estimated Blood Loss 25 Findings See Below 100% proximal RCA occlusion 70% proximal LAD Severe ostial ramus disease Moderate distal LM disease Successful PCI of RCA with 2 drug-eluting stents (4.0 x 15, 4.0 x 30 mm [place]). Fluids -- Specimens Specimen Description: -- Anesthesia Type RN Sedation Complications none Disposition Accompanied Patient To Recovery: No Disposition: Surgical ICU Overlapping Procedure I was present for: the critical portions of procedure. I was immediately available: during the entire case. Back up surgeon: was not required during procedure.
--- NOTE | 2020-01-30 20:52 | XRay Report ---
XR chest 1V portable CLINICAL HISTORY: Atypical chest pain COMPARISON STUDY: 06/24/2006 FINDINGS: The heart is mildly enlarged. There is mild elevation of interstitium. There is no lobar co nsolidation. There are no pleural effusions.[ IMPRESSION: Cardiomegaly and mild nonspecific interstitial thickening. This could represent mild pulm onary vascular congestion or a subtle interstitial inflammatory process. No evidence of lobar consoli dation. ACT 112: Negative or not required by law. Electronically signed by: Henri Guerrero M.D. 01/30/2020 8:50 PM
[2020-01-30] MEDS ORDERED: POTASSIUM CHLORIDE CRTAB 20 MEQ TABCR PO ONE (21:00)
--- NOTE | 2020-01-30 21:17 | Critical Care Consultation ---
Date of Consultation January 30, 2020 Assessment & Plan (1) ST elevation (STEMI) myocardial infarction: Impression: 75-year-old male presents to the ICU following cardiac cath with successful PCI to the RCA x2 for inferior STEMI Neuro - Pain management: Hydromorphone and tramadol as needed Cardiac - STEMIstatus post stent x2 to the RCA, currently on Integrilin drip -Follow cardiology recommendations for further management of multivessel disease -Continue ASA, MTP, Brilinta, lisinopril regimen -Trend troponins for peak -Follow-up echo -Follow-up lipid panel -Maximize electrolytes -Continuous monitoring on telemetry in ICU for now Respiratory - No respiratory distress or history of pulmonary disease Currently maintaining oxygen saturations on room air, monitor continuous pulse ox for now GI - Heart healthy diet RENAL/LYTES - Creatinine within normal limits, monitor electrolytes and replete as indicated - Strict I's and O's ENDO - No history of diabetes or thyroid disease Follow-up hemoglobin A1c ICU hyperglycemic protocol HEME - H&H within normal limits, monitor routine CBCs OrthoCT face demonstrates mandibular fracture, maxillofacial consult and will follow up recommendations ID - No indication for infectious process at this LINES/IV ACCESS - Peripheral IV DVT PROPHYLAXIS - SCDs, holding anticoagulation as patient is currently on Integrilin drip Thank you for allowing us to participate in the care of this patient. Please refer to my attending physician's documentation for any further recommendations. (2) Chest pain: (3) Syncope: (4) Contusion of face: (5) Facial laceration: (6) Hyperlipidemia: (7) Hypertension: (8) CAD (coronary artery disease) of artery bypass graft: (9) Mandibular fracture: History of Present Illness Attending Physician: Júnior Arreola MD History of Present Illness 75-year-old male with prior cardiac history with anterior [place] with PCI to the LAD and additional cath with 2 stents to the RCA, who experienced syncopal event with acute chest pain this afternoon. EMS reported that the patient had passed out and struck his face/teeth which knocked out several of his teeth and he had a laceration to the chin. He was reportedly unable to get up or contact EMS for more than an hour. When EMS did arrive and EKG revealed junctional bradycardia and inferior ST elevations patient was initially hypotensive. Heart alert was initiated in route and patient was given aspirin and fentanyl. Patient was taken for head, cervical, and face CT which prior to transfer to the [facility] which did reveal acute fracture involving the base of the right mandibular condyle. During cath he was found to have 100% acute proximal RCA occlusion prior to previous stent and multivessel nonculprit coronary artery disease. He underwent successful PCI of proximal mid RCA with aspiration thrombectomy and additional PCI of ostial RCA. He was loaded with ticagrelor in the [facility] and has been placed on Integrilin drip. Patient noted to have residual multivessel disease and will need follow-up with cardiology for management. Oromaxillofacial surgery consulted for mandible fracture. On arrival to the ICU the patient is hemodynamically stable, normotensive without vasopressors, and maintaining oxygen saturation on room air. He is chest pain-free and denies shortness of breath. He does complain of pain to his chin and teeth and there is significant swelling and hematoma under his chin. There is not appear to be any active bleeding. He denies recent dizziness, palpitations, abdominal pain, nausea or vomiting. He denies any recent illness. Patient to remain in ICU overnight for continued monitoring following STEMI with PCI. Allergies Allergy/AdvReac Type Severity Reaction Status Date / Time simvastatin AdvReac myalgia Unverified 01/30/20 21:50 Home Medications Medication Instructions Recorded Confirmed Type aspirin [Aspir-Low] 81 mg PO DAILY 01/30/20 01/30/20 History cholecalciferol (vitamin D3) 25 mcg PO DAILY 01/30/20 01/30/20 History furosemide 20 mg PO 2XWK 01/30/20 01/30/20 History isosorbide mononitrate 120 mg PO DAILY 01/30/20 01/30/20 History latanoprost 1 drp OPB HS 01/30/20 01/30/20 History lisinopril 20 mg PO DAILY 01/30/20 01/30/20 History metoprolol tartrate 25 mg PO QPM 01/30/20 01/30/20 History metoprolol tartrate 50 mg PO QAM 01/30/20 01/30/20 History nitroglycerin 0.4 mg SUBLINGUAL .PRN/UD PRN 01/30/20 01/30/20 History omega 0-shl-blj-fish oil [Fish Oil] 1 cap PO DAILY 01/30/20 01/30/20 History potassium citrate 10 meq PO BID 01/30/20 01/30/20 History rosuvastatin 20 mg PO DAILY 01/30/20 01/30/20 History Patient History Medical History CAD (coronary artery disease) of artery bypass graft Hyperlipidemia Hypertension Social History Smoking Status: Never smoker Do You Dip or Chew Tobacco: Yes; Tobacco Cessation Education Requested by Patient: No Hx Alcohol Use: Yes Alcohol type: beer Hx Substance Use: No Preferred Language: Turkish Communication Ability: Effective Director Emergency Department Required: No Beliefs That Will Affect Care: None Current Living Situation: Alone Other Information That Helps Us Care for You: No Feels Safe at Home: Yes Safety Concerns: Feels Safe At This Time Assistive Devices: Glasses Review of Systems Review of Systems: All systems reviewed & are unremarkable except as noted in HPI & below Physical Exam Constitutional: + obese and cooperative; not in distress Eyes: PERRL, conjunctivae normal, anicteric sclerae ENMT: Nose: + facial exam abnormality (Hematoma and laceration of the chin, no active bleeding) and + facial tenderness Mouth: + lip abnormality (Lower lip swollen), + dental restorations and + poor dentition Neck: trachea midline, no thyromegaly Respiratory: normal respiratory effort, lungs clear to auscultation Cardiovascular: RRR, no murmur, no edema Heart Sounds: normal S1 and normal S2 Extremities: normal capillary refill; no edema Gastrointestinal (Abdomen): normal bowel sounds, soft, nontender, no he patosplenomegaly Skin: no rashes, warm and dry Neurologic: PERRL, EOMI, accommodation nl, no face palsy, no dysarthria Psychiatric: A+Ox3, euthymic affect Results & Data Results & Data ([facility]) Vital Signs (Past 12 Hours) Vital Signs Temp Pulse Resp BP Pulse Ox 01/30/20 18:10 90 01/30/20 18:09 90 01/30/20 18:04 36.7 C 48 L 16 116/47 L 90 Coding Level of Care Code 87831 Inpt Consult Level [address] elevation (STEMI) myocardial infarction I21.3 Involved coronary artery: unspecified coronary artery Chest pain I25.9 Chest pain type: chest pain due to myocardial ischemia Ischemic chest pain type: unspecified angina pectoris type Syncope R55 Syncope type: unspecified Contusion of face S00.83XA Encounter type: initial encounter Facial laceration S01.81XA Encounter type: initial encounter Hyperlipidemia E78.5 Hypertension I10 CAD (coronary artery disease) of artery bypass graft I25.810 Mandibular fracture S02.609A (1) ST elevation (STEMI) myocardial infarction Involved coronary artery: unspecified coronary artery Qualified Code(s): I21.3 - ST elevation (STEMI) myocardial infarction of unspecified site (2) Syncope Syncope type: unspecified Qualified Code(s): R55 - Syncope and collapse (3) Facial laceration Encounter type: initial encounter Qualified Code(s): S01.81XA - Laceration without foreign body of other part of head, initial encounter (4) Contusion of face Encounter type: initial encounter Qualified Code(s): S00.83XA - Contusion of other part of head, initial encounter (5) Chest pain Chest pain type: chest pain due to myocardial ischemia Ischemic chest pain type: unspecified angina pectoris type Qualified Code(s): I25.9 - Chronic ischemic heart disease, unspecified
[2020-01-30] MEDS ORDERED: PROMETHAZINE HCL 12.5 MG in SODIUM CHLORIDE 0.9% 50 ML IV PRN (21:21)
[2020-01-30] MEDS ORDERED: HYDROmorphone INJ 0.5 MG/0.5 ML SYR IV PRN (21:21)
[2020-01-30] MEDS: METOPROLOL TARTRATE 25 MG TAB PO SCH (22:14)
--- NOTE | 2020-01-30 22:20 | Cardiology Consultation ---
Date of Consultation January 30, 2020 Assessment & Plan (1) ST elevation (STEMI) myocardial infarction: Presentation consistent with inferior STEMI with resulting syncopal event and persistent junctional bradycardia. Recommend proceeding with emergent cardiac catheterization and likely primary PCI. No evidence of intracranial hemorrhage or apparent contraindications to proceeding with procedure. Further recommendations pending findings of coronary angiography. History of Present Illness Attending Physician: Júnior Arreola MD History of Present Illness 75-year-old man here with syncopal event, acute chest pain and ECG concerning for acute MN. Patient seen emergently in the ED after heart alert activated en route. Patient followed by [facility] cardiology. Prior cardiac history remarkable for remote anterior MN treated with PCI and stent to LAD. Later had 2 stents placed to his RCA in setting of angina. Per report on last catheterization had at least moderate RCA in-stent restenosis and PCI was considered per family. Other medical issues include hypertension, dyslipidemia. Per report from EMS staff approximately 3:30 PM was at his work bench when passed out striking his face/teeth along workbench knocking out several teeth and with resulting laceration on his chin. Post syncopal event patient unable to get up, weak, with chest pain and unable to contact EMS for more than an hour. With EMS patient having ongoing active chest pain, ECG showed junctional bradycardia in the 40s with inferior ST elevations, hypotensive to the 90s. Given aspirin, fentanyl en route. On arrival patient alert with active chest pain. ECG again confirmed inferior ST elevations. Taken emergently for head CT which was negative for intracranial bleed. Allergies Allergy/AdvReac Type Severity Reaction Status Date / Time simvastatin AdvReac myalgia Unverified 01/30/20 21:50 Home Medications Medication Instructions Recorded Confirmed Type aspirin [Aspir-Low] 81 mg PO DAILY 01/30/20 01/30/20 History cholecalciferol (vitamin D3) 25 mcg PO DAILY 01/30/20 01/30/20 History furosemide 20 mg PO 2XWK 01/30/20 01/30/20 History isosorbide mononitrate 120 mg PO DAILY 01/30/20 01/30/20 History latanoprost 1 drp OPB HS 01/30/20 01/30/20 History lisinopril 20 mg PO DAILY 01/30/20 01/30/20 History metoprolol tartrate 25 mg PO QPM 01/30/20 01/30/20 History metoprolol tartrate 50 mg PO QAM 01/30/20 01/30/20 History nitroglycerin 0.4 mg SUBLINGUAL .PRN/UD PRN 01/30/20 01/30/20 History omega 2-rep-inc-fish oil [Fish Oil] 1 cap PO DAILY 01/30/20 01/30/20 History potassium citrate 10 meq PO BID 01/30/20 01/30/20 History rosuvastatin 20 mg PO DAILY 01/30/20 01/30/20 History Patient History Medical History CAD (coronary artery disease) of artery bypass graft Hyperlipidemia Hypertension Social History Smoking Status: Never smoker Do You Dip or Chew Tobacco: Yes; Tobacco Cessation Education Requested by Patient: No Hx Alcohol Use: Yes Alcohol type: beer Hx Substance Use: No Preferred Language: Polish Communication Ability: Effective Information Tech Required: No Beliefs That Will Affect Care: None Current Living Situation: Alone Other Information That Helps Us Care for You: No Feels Safe at Home: Yes Safety Concerns: Feels Safe At This Time Assistive Devices: Glasses Review of Systems Review of Systems: Unable to obtain in the setting of emergent situation Physical Exam Physical Exam: General: Alert uncomfortable HEENT: Sclerae anicteric, front teeth missing blood in mouth, running down chin Lungs: Clear anteriorly Cardiac: Bradycardic, regular Abdomen: Soft, nontender Extremities: Warm, well perfused, no edema. 2+ radial pulses Neuro: Nonfocal Results & Data ([facility]) Vital Signs (Past 12 Hours) Vital Signs Temp Pulse Resp BP Pulse Ox 01/30/20 18:10 90 01/30/20 18:09 90 01/30/20 18:04 98.1 F 48 L 16 116/47 L 90 PG Care Time/CCT Total # of Minutes Spent Total Time Spent with Patient: Total time spent is greater than 50% in coordination of care (as documented) at patient's floor/unit and/or counseling patient: Coding Level of Care Code 66041 Initial Inpt Care Lvl [address] elevation (STEMI) myocardial infarction I21.3 Involved coronary artery: unspecified coronary artery (1) ST elevation (STEMI) myocardial infarction Involved coronary artery: unspecified coronary artery Qualified Code(s): I21.3 - ST elevation (STEMI) myocardial infarction of unspecified site
--- NOTE | 2020-01-30 22:25 | Cardiac Catheterization ---
[facility] Data: [place] Cardiac Status Clinical evaluation leading to the procedure CAD Presenation: STEMI Anginal Classification: CCS IV Heart Failure: No Cardiogenic Shock within 24 Hours: No Cardiac Arrest within 24 Hours: No Imaging Studies Past 6 Months: No Stress Studies Past 6 Months: No Diagnostic Physicians Name: Duncan Jain MD Status: Emergency Closure Device Percutaneous Entry Location: Radial Closure Device: Radial Band Recommendations: PCI without planned CABG PCI Indication: Immediate PCI for STEMI First Noted: First EKG Lesion Segment Name: Proximal RCA Culprit Artery: Yes Stenosis Prior to Rx (%): 100 Chronic Total Occlusion: No IVUS: Yes FFR: No Pre-Procedure ELIUD Flow: 0 Previously Treated Lesion: Timeframe: greater than 2 years Treated with Stent: Yes In-Stent Restenosis: No In-Stent Thrombosis: Yes Stent Type: CODY Yes Lesion Complexity: High/C Lesion Length (mm): 40 Thrombus Present: Yes Bifurcation Lesion: No Guidewire Across Lesion: Stenosis Post-Procedure (%): 0 Post-Procedure ELIUD Flow: 3 Devices(s) Deployed: Yes Yes Intraprocedure Events Significant Disection: No Perforation: No Cardiac Cath Procedure Full Procedure Date January 30, 2020 Pre-Procedure Diagnosis Pre-Procedure Diagnosis: STEMI AUC Score AUC Score: 9 Post-Procedure Diagnosis Post-Procedure Diagnosis: Severe CAD, Successful PCI and Normal Intracardiac Pressures Procedure(s) Performed Procedure(s) Performed: Coronary Angiography, Left Heart Cath, Aspiration Thrombectomy, Drug Eluting Stent and IVUS Public Records Researcher Duncan Jain MD Snake Charmer(s) [place] Estimated Blood Loss Estimated Blood Loss: 20 Medication(s) Medication(s): Atropine, Fentanyl, Heparin, Integrilin, Lidocaine 1%, Nicardipine, Nitroglycerin and Versed Summary of Findings Indication: STEMI/Heart Alert. Syncopal event with acute chest pain, inferior ST elevations and junctional bradycardia. Access: 6 Fr right radial artery Catheters: [place] left 3.5 guide, JR4 guide, pigtail Findings: LM -calcified, 30% ostial, 30 to 40% distal stenosis LAD -medium caliber, hazy 60% ostial and proximal disease, mid segment stent patent with 40% in-stent restenosis, distal vessel with luminal irregularities wraps on apex. Circumflex -80% ostial stenosis extending into large high OM1. OM1 without additional disease. Very small AV groove mid/distal circumflex with mild diffuse disease. RCA -50 to 60% ostial stenosis with waveform dampening with catheter engagement. 100% acute proximal stenosis just prior to previous mid RCA stent. LVEDP -15 -- PCI -- Antithrombotic therapy: Heparin, IC Integrilin, ticagrelor Procedure: RCA cannulated with JR4 guide Cylinder Batcher 50 wire passed across lesion into distal vessel Proximal/mid RCA lesions predilated with 2.5 and 3.5 compliant balloons Noted to have significant heavy thrombus burden throughout RCA. Treated with IC Integrilin and successful aspiration thrombectomy. Arrogene IVUS catheter placed in the distal RCA. Pullback revealed minimal disease in latemid stent. Severe heavily calcified in-stent restenosis in earlymid RCA stent. Calcified severe proximal disease involving RCA ostium. Earlymid RCA stent postdilated aggressively with 4.5 NC Earlymid RCA stent then recovered with 4.0 x 30 mm Ari drug-eluting stent Stent post-dilated with 4.5 noncompliant balloon Ostial RCA lesion then dilated with 3.0 compliant balloon Ostium stented with 4.0 x 15 mm Ari Stent postdilated with 4.0 ostial flash balloon IC vasodilators administered for spasm Repeat IVUS showed well apposed, well-expanded stents. Ostial stent extending just into aorta. Post procedure ELIUD 3 flow, with minimal residual stenosis and no apparent cardiac complications. Arterial Closure: TR band Summary: 1. Inferior STEMI/100% acute proximal RCA occlusion just before prior stent 2. Multivessel non-culprit coronary artery disease -30% ostial, 40% distal left main 60% hazy ostial/proximal LAD, 40% mid LAD in-stent restenosis 80% ostial circumflex/high OM1 3. Normal intracardiac filling pressure 4. Successful PCI of proximal/mid RCA occlusion with aspiration thrombectomy and drug-eluting stent overlapped with more proximal prior stent (4.0 x 30 mm [place]; postdilated with 4.5 NC). 5. Successful PCI of ostial RCA with 4.0 x 50 mm Ari drug-eluting stent Recommendations: Admit to ICU for continued monitoring Loaded with ticagrelor 180 mg in Stippler Continue dual-antiplatelet therapy for at least 1 year. Consider extended DAPT in the setting of overlapping stents Trend troponins until peak, Check Echo Uptitrate beta-mikhail/AYO as BP allows High-dose statin Consult cardiac Rehab Will discuss further options regarding residual multivessel disease with patient's primary cardiology team. Hemodynamics Rest Ao:: Final Ao: 163/64/96 LV: Recommendations Recommendations: PCI without planned CABG Specimens Specimens: None Radiation Exposure (mGy) 4793 Contrast (mls) 135 Fluids (cc crystalloids) Fluids (cc crystalloids): 800 Drains Drains: None Anesthesia Moderate Procedural Complication(s) None Disposition ICU I attest to the content of the Intraoperative Record and any orders documented therein. Any exceptions are noted below. [facility] Card Cath Procedure Codes Cardiac Catheterization Procedure 1: Cardiovascular Cath Procedures: 41422 Coronaries and LHC (+/-LV) Therapeutic Services & Ancillary Proc Procedure 1: Cardiovascular Tx and Anc Procedures: 93322 IV Ultrasound (Coronary or Graft) Moderate Sedation Procedure 1: Sedation/Anesthesia: 09841 Mod Sedation by the same physician;Init15 Min Child Age 5 & Up Procedure 2: Sedation/Anesthesia: 16431 Mod Sedation by the same physician; Ea [id number] Minutes Stenting Procedure 1: Cardiovascular Stent Procedures: 07575 Perc transluminal revascularization of acute sub/total occl, aMI PG Care Time/CCT Total # of Minutes Spent Total Time Spent with Patient: Total time spent is greater than 50% in coordination of care (as documented) at patient's floor/unit and/or counseling patient:
[2020-01-30] MEDS: LATANOPROST 0.005% OP SOLN 2.5 ML BTL OPB SCH (22:31)
[2020-01-31 02:42] LABS: Basophils # (auto) 0.01 K/uL (0-0.2); Basophils % (auto) 0.1 %; Eosinophils # (auto) 0.01 K/uL (0-0.5); Eosinophils % (auto) 0.1 %; Hematocrit (blood only) 40.6 % (42-52); Hemoglobin 13.6 g/dL (14.0-18.0); Immature Granulocytes # (auto) 0.02 K/uL (0.00-0.02); Immature Granulocytes % (auto) 0.2 %; Lymphocytes # (auto) 2.04 K/uL (1.2-3.4); Lymphocytes % (auto) 16.8 %; Mean Corpuscular Hemoglobin 30.8 pg (25-34); Mean Corpuscular Hgb Conc 33.5 g/dL (32-36); Mean Corpuscular Volume 91.9 fL (80-100); Mean Platelet Volume 9.5 fL (7.4-10.4); Monocytes # (auto) 0.01 K/uL (0.11-0.59); Monocytes % (auto) 0.1 %; Neutrophils # (auto) 10.06 K/uL (1.4-6.5); Neutrophils % (auto) 82.7 %; Platelet Count 196 K/uL (130-400); RDW Coefficient of Variation 14.5 % (11.5-14.5); Red Blood Count 4.42 M/uL (4.7-6.1); White Blood Count 12.15 K/uL (4.8-10.8)
[2020-01-31 03:25] LABS: Alanine Aminotransferase 102 U/L (12-78); Albumin Level 3.2 gm/dl (3.4-5.0); Alkaline Phosphatase 48 U/L (45-117); Aspartate Aminotransferase 569 U/L (15-37); Bilirubin Direct 0.1 mg/dl (0-0.2); Bilirubin,Total 0.3 mg/dl (0.2-1); Chol HDL Ratio 2; Cholesterol 87 mg/dl (0-200); HDL Cholesterol 45 mg/dl; LDL Cholesterol Calculated 24 mg/dl; Total Protein 6.7 gm/dl (6.4-8.2); Triglycerides 89 mg/dl (0-150); VLDL Cholesterol 18 mg/dl
[2020-01-31 03:26] LABS: Troponin I > 200.000 ng/ml (0-0.045)
[2020-01-31 05:59] LABS: Magnesium 1.9 mg/dl (1.8-2.4); Phosphorus 4.2 mg/dl (2.5-4.9)
[2020-01-31] MEDS: traMADol HCL 50 MG TABLET PO PRN (06:26)
[2020-01-31 06:51] LABS: BUN Creatinine Ratio 21.6 (10-20); Calcium 8.1 mg/dl (8.5-10.1); Creatinine Clr Calc Pharmacy 77.4 ml/min; Est GFR (Non-African American) 68.1; Potassium 3.9 mmol/L (3.5-5.1)
[2020-01-31] MEDS ORDERED: MAGNESIUM SULFATE / D5W 1 GM/100 ML BAG IV ONE (06:55)
[2020-01-31 07:47] LABS: Estimated Average Glucose 143 mg/dl; Hemoglobin A1C 6.6 % (4.5-5.6)
[2020-01-31] MEDS: POTASSIUM CHLORIDE / WTR 10 MEQ/100 ML PLCT IV SCH ×2 (07:59→08:46)
[2020-01-31] MEDS: ACETAMINOPHEN 325 MG TAB PO PRN ×2 (07:59→23:01)
[2020-01-31] MEDS: ASPIRIN 81 MG ECTAB PO SCH (08:00)
[2020-01-31] MEDS: METOPROLOL TARTRATE 25 MG TAB PO SCH ×2 (08:00→20:35)
[2020-01-31] MEDS: lisinopril 5 MG TAB PO SCH (08:01)
[2020-01-31] MEDS: TICAGRELOR 90 MG TAB PO SCH ×2 (08:01→20:34)
--- NOTE | 2020-01-31 08:13 | XRay Report ---
XR knee RT 1 or 2V routine CLINICAL HISTORY: acute right knee pain COMPARISON: None. DISCUSSION: No acute fractures or dislocations are visualized. There are osteoarthritic changes prese nt. There is linear calcification within the proximal calf possibly secondary to myositis ossificans. IMPRESSION: 1. Osteoarthritis 2. No acute fractures ACT 112: Negative or not required by law. Electronically signed by: Henri Guerrero M.D. 01/31/2020 8:11 AM
[2020-01-31] MEDS ORDERED: DEXTROSE 50% 50 ML SYRINGE IV PRN (08:35)
[2020-01-31] MEDS ORDERED: GLUCOSE 40% GEL 15 GM TUBE PO PRN (08:35)
[2020-01-31] MEDS ORDERED: GLUCOSE 10 TABS/TUBE PO PRN (08:35)
[2020-01-31] MEDS ORDERED: GLUCAGON FOR INJ 1 MG VIAL SQ PRN (08:35)
[2020-01-31] MEDS ORDERED: CARBOHYDRATES FOR HYPOGLYCEMIA PO PRN (08:35)
--- NOTE | 2020-01-31 08:49 | Oral/Maxillofacial Consult ---
Date of Consultation January 31, 2020 Oral Maxillofacial consult for Mr Pedro Bae January 31 2020 Given his current medical situation and recent cardiac event what would be the risks of taking him to the OR to preform the repair of the fracture, extraction of fractured teeth and repair the laceration. Appreciate medical and cardiology suggestions as to the best way to manage Mr. Bae. I could wait a few days to preform the procedures if medically necessary--please advice Patient had syncopal event secondary to IA yesterday--had cath procedure -stent x 2 Fell to floor injury to teeth, chin, mucosal tissue and right side slightly displaced condyle fracture. [place] Plan Ideally If medically stable I would like to take Mr Bae to the OR and remove a few fractured teeth, repair the mucosal laceration of the inner lower lip and skin of chin area. In addition I would like to place wire loops on his upper and lower anterior teeth to allow a few rubber bands to be placed to allow for stabilization of the fracture to insure a good functional result via this closed reduction method. Given the nature of the fracture, a closed functional approach will be used. Arch bars will be placed on the upper/lower teeth and then a series of elastics will be placed. He will be in these elastics for about 3 weeks to insure that when the bones heal the alignment is consistent with his jaw motion and dental occlusion. Post op plans: My plan is to keep the patient in a functional elastic positioning with a modified exercise program and soft diet for the next 3-4 weeks. We will keep the arch bars in place for a total of 6 weeks, then return him to the operating room or under local anesthesia in my office for removal of the maxillary/mandibular fixation devices. I will refer the patient to a dentist for evaluation of the teeth that are fractured for repair and replacement. Oral Maxillofacial Surgery Exam Present Complaint: Fractured teeth upper right side occlusion id off due to recent right condyle fracture facial/oral lacerations--due to recent IA and syncopal events Oral Exam: Finding--lacerations of the lower inner lip mucosal, chin, occlusion is off as a result of the jaw fracture. Imaging: CT scan reviewed noted fractured upper left teeth and fracture of the right condyle Occlusion: Class I with many missing teeth , he dose have a RPD with worn teeth I reviewed the treatment plan and consent with the patient Understanding was expressed. Time was given for questions regarding the surgery, risks and post op care. Discussed alternative to treatment--procedure as planned, Do not do surgery Risks discussed: Pain,swelling,infection, dry socket, delayed healing, nerve injury to face,lips,tongue,chin area which could be permanent (rare). TMJ, jaw stiffness, change in bite (rare), ear pain (referred). Sinus problems like fistula or infection. Need to leave a small root fragment in place to avoid injury to nerve or sinus. If jaw fracture is not repaired that a malocclusion and poor healing will occur--teeth will not fit together correctly Home care reviewed: tooth brushing, rinsing, follow up care with Dr Archibald. diet=[id number] dental. History of Present Illness Attending Physician: Antonio Aviles MD Allergies Allergy/AdvReac Type Severity Reaction Status Date / Time simvastatin AdvReac myalgia Unverified 01/30/20 21:50 Home Medications Medication Instructions Recorded Confirmed Type aspirin [Aspir-Low] 81 mg PO DAILY 01/30/20 01/30/20 History cholecalciferol (vitamin D3) 25 mcg PO DAILY 01/30/20 01/30/20 History furosemide 20 mg PO 2XWK 01/30/20 01/30/20 History isosorbide mononitrate 120 mg PO DAILY 01/30/20 01/30/20 History latanoprost 1 drp OPB HS 01/30/20 01/30/20 History lisinopril 20 mg PO DAILY 01/30/20 01/30/20 History metoprolol tartrate 25 mg PO QPM 01/30/20 01/30/20 History metoprolol tartrate 50 mg PO QAM 01/30/20 01/30/20 History nitroglycerin 0.4 mg SUBLINGUAL .PRN/UD PRN 01/30/20 01/30/20 History omega 2-xly-hpr-fish oil [Fish Oil] 1 cap PO DAILY 01/30/20 01/30/20 History potassium citrate 10 meq PO BID 01/30/20 01/30/20 History rosuvastatin 20 mg PO DAILY 01/30/20 01/30/20 History Patient History Medical History CAD (coronary artery disease) of artery bypass graft Hyperlipidemia Hypertension Social History Smoking Status: Never smoker Do You Dip or Chew Tobacco: Yes; Tobacco Cessation Education Requested by Patient: No Hx Alcohol Use: Yes Alcohol type: beer Hx Substance Use: No Preferred Language: Hungarian Communication Ability: Effective Diversional Therapist Required: No Beliefs That Will Affect Care: None Current Living Situation: Alone Other Information That Helps Us Care for You: No Feels Safe at Home: Yes Safety Concerns: Feels Safe At This Time Assistive Devices: Glasses Results & Data ([facility]) Vital Signs (Past 12 Hours) Vital Signs Pulse Resp BP BP Pulse Ox 01/31/20 06:00 74 20 92 01/31/20 05:19 60 15 145/85 H 94 01/31/20 05:00 65 17 91 01/31/20 04:18 65 15 152/72 H 93 01/31/20 04:00 65 8 L 92 01/31/20 03:18 65 16 139/62 92 01/31/20 03:00 66 16 91 01/31/20 02:18 68 16 155/62 H 93 01/31/20 02:00 71 16 92 01/31/20 01:18 64 16 134/75 93 01/31/20 01:00 71 18 92 01/31/20 00:18 65 17 159/69 H 93 01/31/20 00:00 65 12 92 01/30/20 23:18 61 10 L 135/62 92 01/30/20 23:00 59 L 19 94 01/30/20 22:30 58 L 5 L 93 01/30/20 22:18 67 20 144/72 H 94 01/30/20 22:15 66 27 H 90 01/30/20 22:03 63 15 153/77 H 91 01/30/20 22:00 63 17 93 01/30/20 21:48 68 12 147/65 H 95 01/30/20 21:45 60 14 93 01/30/20 21:33 56 L 6 L 132/68 92 01/30/20 21:30 63 20 92 01/30/20 21:18 57 L 18 145/64 H 93 01/30/20 21:15 58 L 16 93 01/30/20 21:08 56 L 13 152/68 H 94 01/30/20 21:00 93 01/30/20 20:48 58 L 16 158/65 H 92 01/30/20 20:45 62 20 01/30/20 20:30 55 L 15 92 01/30/20 20:28 22 200/83 H 93 PG Care Time/CCT Total # of Minutes Spent Total Time Spent with Patient: Total time spent is greater than 50% in coordination of care (as documented) at patient's floor/unit and/or counseling patient: Coding Level of Care Code 57603 Initial Inpt Care Lvl 3
[2020-01-31] MEDS ORDERED: lisinopril 5 MG TAB PO SCH (09:00)
[2020-01-31] MEDS: INSULIN GLARGINE SOLOSTAR 100 UNITS/ML 3 ML PEN SC SCH ×2 (09:18→20:34)
[2020-01-31] MEDS: CHOLECALCIFEROL 1,000 UNITS 25 MCG TAB PO SCH (09:21)
[2020-01-31 09:41] LABS: Bilirubin Direct 0.1 mg/dl (0-0.2); Bilirubin,Total 0.4 mg/dl (0.2-1); Total Protein 6.4 gm/dl (6.4-8.2)
[2020-01-31] MEDS ORDERED: CHLORHEXIDINE GLUCONATE 0.12% 480 ML MT PRN (09:46)
--- NOTE | 2020-01-31 11:01 | Cardiology Consultation ---
Date of Consultation January 31, 2020 Assessment & Plan (1) ST elevation (STEMI) myocardial infarction: Patient presented after a syncopal episode, with several minutes of loss of consciousness due to thrombotic culprit occlusion of the RCA having presented with electrical instability, third-degree AV block, junctional escape rhythm. The patient's arrhythmia has resolved post complex aspiration thrombectomy, PCI, 2 drug-eluting stents to the ostial proximal RCA. He is currently hemodynamically stable. He is not on any IV infusions. He is on aspirin and Brilinta. Troponin I peaked at greater than 200 ng/ml, trended down to 149 ng/ml this am. Echocardiogram with findings of apical hypokinesis to akinesis, which is a chronic finding, LVEF 45 to 50% Cardiac catheterization reveals residual multivessel disease including concern of distal left main disease, 60% hazy proximal LAD stenosis that proceeds into an area of in-stent restenosis in the mid LAD, and high-grade circumflex OM1 disease. Cardiac catheterization films reviewed with Dr. Jain of interventional cardiology, we both agreed that the most reasonable for the patient to be assessed by CT surgery for possible CABG. The timing of such procedure however is complex, as he certainly is at risk for a recurrent life-threatening event, however there is certainly high operative risk in the setting of recent thrombotic RCA occlusion and stenting, especially given the significant troponin elevation observed overnight last night. I have paged CT surgery at [facility], and await a callback. In the meantime, I discussed the case with Dr. Edwards , on-call for clinical cardiology at [facility] who accepts the patient in transfer pending bed availability. Patient is currently stable to be transferred by ACLS ground. However if he has recurrent symptoms, use of air transfer will be reconsidered. Medical therapy: Continue aspirin 81 mg daily, Brilinta 90 mg twice daily, metoprolol tartrate 12.5 mg twice daily, lisinopril 5 mg daily. The patient's SARS-CoV-2 Rapid antigen screen was negative. (2) Mandibular fracture: Patient has been seen by oral maxillofacial surgery earlier today. Surgical intervention discussed with patient, but patient apparently had declined. In light of his cardiac status, will continue conservative treatment for now. (3) Dyslipidemia: Patient is typically on rosuvastatin 20 mg daily. This was on hold due to elevation in transaminases, AST of 569 units/L overnight, down to 438 this morning. ALT elevation of 102 units/L, trending down to 89 units/L. This was likely reflective of the myocardial infarction. If continue to trend down tomorrow, will resume statin. (4) Diabetes mellitus: Hemoglobin A1c 6.6%. Continue insulin. With hemostasis of his chin laceration have been achieved, will reassess candidacy for pharmacologic DVT prophylaxis as his hospitalization develops. History of Present Illness Attending Physician: Antonio Aviles MD History of Present Illness Pedro Bae is a 75 year old male seen in cardiology consultation per the request of Dr Arreola and Dr Jain for ongoing cardiology care post inferior ST segment elevation myocardial infarction. The patient had most recently been seen in routine cardiology follow-up as an outpatient on 11/07/2019 at that time, stable cardiac signs and symptoms were noted. He describes that for the last 4 to 5 weeks, he has been having chest d iscomfort with exertion such as feeding his animals in his barn that would resolve with rest. 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 He was able to walk to his workshop and subsequently collapsed and lost consciousness. When he awoke, he was bleeding profusely from his chin having suffered a laceration and what has since been found to be an acute fracture through the base of the right mandibular condyle. He was able to crawl 70 feet to a phone to call for help. Upon arrival of EMS he was noted to have a junctional rhythm with findings of inferior ST segment elevation. The cardiac catheterization laboratory at [facility] was activated per the prehospital EMS findings and initial EKG performed on arrival 01/30/2020 1801 revealed third-degree AV block, with AV disassociation, and a junctional ventricular rhythm, with [address] segment elevation in the inferior leads and reciprocal ST depression in the anteroseptal and lateral leads. Emergent cardiac catheterization was performed upon arrival with findings of the culprit right coronary artery stenosis with 50 to 60% ostial stenosis and 100% acute proximal RCA stenosis just prior to the previously placed RCA stent. Complex PCI was performed including aspiration thrombectomy, administration of Integrilin, with placement of 2 drug-eluting stents. Residual multivessel disease was noted including 30% ostial and 40% distal left main, and a 60% hazy ostial/proximal LAD stenosis, 40% mid LAD in-stent restenosis, 80% ostial circumflex, with high-grade obtuse marginal stenosis noted. Post procedure, sinus rhythm was restored with no significant arrhythmias noted overnight and thus far today post procedure. EKG this morning, 01/31/2020 8:06 AM revealed sinus bradycardia 57 bpm with inferior Q waves, and very subtle residual [address] segment elevation in the inferior leads, much improved compared to presentation. During my assessment of the patient in room 107 to the ICU, he was hemodynamically stable, without acute concern. Hemostasis of his chin laceration has been achieved. No residual anginal symptoms noted thus far. Outpatient Problem List: 1. Atherosclerotic coronary disease status post ST elevation myocardialinfarction 2006, receiving emergent stenting of the left anterior descending. 2. Coronary intervention to the right coronary artery in 2 separateareas for recurrent angina in February 2008. 3. Repeat cardiac catheterization July of 2014 after abnormal stresstesting demonstrating moderate in-stent stenosis of the distal rightcoronary stent but no high-grade obstruction. 4. Hypertension. 5. Hyperlipidemia. 6. Atherosclerotic carotid disease status post right carotid endarterectomy 05/2011 7.Status post carotid duplex 11/2019 with <50% residual stenosis bilaterally Allergies Allergy/AdvReac Type Severity Reaction Status Date / Time simvastatin AdvReac myalgia Unverified 01/30/20 21:50 Home Medications Medication Instructions Recorded Confirmed Type aspirin [Aspir-Low] 81 mg PO DAILY 01/30/20 01/30/20 History cholecalciferol (vitamin D3) 25 mcg PO DAILY 01/30/20 01/30/20 History furosemide 20 mg PO 2XWK 01/30/20 01/30/20 History isosorbide mononitrate 120 mg PO DAILY 01/30/20 01/30/20 History latanoprost 1 drp OPB HS 01/30/20 01/30/20 History lisinopril 20 mg PO DAILY 01/30/20 01/30/20 History metoprolol tartrate 25 mg PO QPM 01/30/20 01/30/20 History metoprolol tartrate 50 mg PO QAM 01/30/20 01/30/20 History nitroglycerin 0.4 mg SUBLINGUAL .PRN/UD PRN 01/30/20 01/30/20 History omega 3-jhh-rxo-fish oil [Fish Oil] 1 cap PO DAILY 01/30/20 01/30/20 History potassium citrate 10 meq PO BID 01/30/20 01/30/20 History rosuvastatin 20 mg PO DAILY 01/30/20 01/30/20 History Patient History Medical History CAD (coronary artery disease) of artery bypass graft Hyperlipidemia Hypertension Social History Smoking Status: Never smoker Do You Dip or Chew Tobacco: Yes; Tobacco Cessation Education Requested by Patient: No Hx Alcohol Use: Yes Alcohol type: beer Hx Substance Use: No Preferred Language: Vietnamese Communication Ability: Effective Ruling Machine Feeder Required: No Beliefs That Will Affect Care: None Current Living Situation: Alone Other Information That Helps Us Care for You: No Feels Safe at Home: Yes Safety Concerns: Feels Safe At This Time Assistive Devices: Glasses Review of Systems Review of Systems: All systems reviewed & are unremarkable except as noted in HPI & below Physical Exam Physical Exam: Temp Pulse Resp BP Pulse Ox 36.7 C 60 20 145/85 H 92 01/30/20 18:04 01/31/20 08:00 01/31/20 06:00 01/31/20 05:19 01/31/20 06:00 Constitutional: Ill, but no acute distress ENMT: Mild swelling noted at the site of the chin laceration,Fractured teeth upper right side noted Respiratory: normal respiratory effort, lungs clear to auscultation Cardiovascular: RRR, no murmur, no edema Gastrointestinal (Abdomen): normal bowel sounds, soft, nontender, no hepatosplenomegaly Neurologic: PERRL, EOMI, accommodation nl, no face palsy, no dysarthria Results & Data ([facility]) Vital Signs (Past 12 Hours) Vital Signs Pulse Resp BP Pulse Ox 01/31/20 06:00 74 20 92 01/31/20 05:19 60 15 145/85 H 94 01/31/20 05:00 65 17 91 01/31/20 04:18 65 15 152/72 H 93 01/31/20 04:00 65 8 L 92 01/31/20 03:18 65 16 139/62 92 01/31/20 03:00 66 16 91 01/31/20 02:18 68 16 155/62 H 93 01/31/20 02:00 71 16 92 01/31/20 01:18 64 16 134/75 93 01/31/20 01:00 71 18 92 01/31/20 00:18 65 17 159/69 H 93 01/31/20 00:00 65 12 92 01/30/20 23:18 61 10 L 135/62 92 01/30/20 23:00 59 L 19 94 Laboratory Results Cardiac Enzymes 01/30/20 01/31/20 01/31/20 Range/Units 18:06 02:21 08:30 AST 57 H 569 H 438 H (15-37) U/L CK-MB (CK-2) 2.1 (0.5-3.6) ng/ml Troponin I 0.061 H* > 200.000 H* 149.000 H* (0-0.045) ng/ml Coagulation 01/30/20 Range/Units 18:06 PT 11.1 (9.0-12.0) Seconds APTT 24.8 (21.0-31.0) Seconds Lipids 01/31/20 Range/Units 02:21 Triglycerides 89 (0-150) mg/dl Cholesterol 87 (0-200) mg/dl HDL Cholesterol 45 mg/dl Cholesterol/HDL Ratio 2 CBC 01/30/20 01/31/20 Range/Units 18:06 02:21 WBC 14.64 H 12.15 H (4.8-10.8) K/uL RBC 4.61 L 4.42 L (4.7-6.1) M/uL Hgb 14.0 13.6 L (14.0-18.0) g/dL Hct 42.1 40.6 L (42-52) % Plt Count 223 196 (130-400) K/uL Neut # (Auto) 9.83 H 10.06 H (1.4-6.5) K/uL Lymph # (Auto) 2.98 2.04 (1.2-3.4) K/uL [place] # (Auto) 1.50 H 0.01 L (0.11-0.59) K/uL Eos # (Auto) 0.26 0.01 (0-0.5) K/uL Baso # (Auto) 0.02 0.01 (0-0.2) K/uL Comprehensive Metabolic Panel 01/30/20 01/31/20 01/31/20 Range/Units 18:06 02:21 05:18 Sodium 144 141 (136-145) mmol/L Potassium 3.4 L 3.9 (3.5-5.1) mmol/L Chloride 109 H 110 H (98-107) mmol/L Carbon Dioxide 25 23 (21-32) mmol/L BUN 22 H 23 H (7-18) mg/dl Creatinine 1.59 H 1.05 (0.6-1.4) mg/dl Glucose 176 H 149 H (70-99) mg/dl Calcium 8.8 8.1 L (8.5-10.1) mg/dl Direct Bilirubin 0.1 (0-0.2) mg/dl AST 57 H 569 H (15-37) U/L ALT 63 102 H (12-78) U/L Alkaline Phosphatase 48 48 (45-117) U/L Total Protein 6.6 6.7 (6.4-8.2) gm/dl Albumin 3.2 L 3.2 L (3.4-5.0) gm/dl 01/31/20 Range/Units 08:30 Sodium (136-145) mmol/L Potassium (3.5-5.1) mmol/L Chloride (98-107) mmol/L Carbon Dioxide (21-32) mmol/L BUN (7-18) mg/dl Creatinine (0.6-1.4) mg/dl Glucose (70-99) mg/dl Calcium (8.5-10.1) mg/dl Direct Bilirubin 0.1 (0-0.2) mg/dl AST 438 H (15-37) U/L ALT 89 H (12-78) U/L Alkaline Phosphatase 43 L (45-117) U/L Total Protein 6.4 (6.4-8.2) gm/dl Albumin 3.0 L (3.4-5.0) gm/dl Intake and Output 01/30/20 01/31/20 01/31/20 22:59 06:59 14:59 Intake Total 0 / 180 180 / 180 1278.333 / 1278.333 Output Total 0 / 1500 1500 / 1500 Balance 0 / -1320 -1320 / -1320 1278.333 / 1278.333 Intake: IV 1278.333 / 1278.333 MAGNESIUM SULFATE / D5W 1 gm In 100 / 100 100 ml @ 50 mls/hr IV ONE ONE Rx#:[id number] K RIDER / WTR 10 meq In 100 ml 178.333 / 178.333 @ 100 mls/hr IV Q1H JAVIER Rx#: [id number] Nss 1000ML 1,000 ml @ 100 mls/ 1000 / 1000 hr IV .Q10H JAVIER Rx#:[id number] Oral 0 / 180 180 / 180 Output: Urine 0 / 1500 1500 / 1500 Other: Weight 122.8 kg 122.8 kg Weight Measurement Method Built in [facility] Built in [facility] Diagnostic Findings Echocardiogram performed 01/31/2020 and reviewed independently by the undersigned revealed severe concentric left ventricular hypertrophy, with apical hypokinesis to akinesis, mild left ventricular systolic dysfunction, LVEF 45 to 50%, mild aortic valve sclerosis without stenosis (1) ST elevation (STEMI) myocardial infarction Involved coronary artery: unspecified coronary artery Qualified Code(s): I21.3 - ST elevation (STEMI) myocardial infarction of unspecified site
--- NOTE | 2020-01-31 11:56 | Communication Note ---
Date of Service: January 31, 2020 I called and spoke to patient's daughters by phone and provided updates. Jacqueline Lopez [phone] Jeannette Thayer [phone]
[2020-01-31] MEDS: INSULIN ASPART 100 UNITS/ML 3 ML PEN SC SCH ×3 (12:12→20:33)
--- NOTE | 2020-01-31 13:26 | Critical Care Progress Note ---
Date of Service January 31, 2020 Assessment & Plan (1) ST elevation (STEMI) myocardial infarction: --STEMI S/p stent placement in RCA x2, Off Integrilin drip Patient also had aspiration thrombectomy Continue with beta-mikhail, lisinopril, Brilinta, statin and aspirin Trend troponins EKG post cath shows decrease in ST elevations which are appreciated in two three and aVF 2D echo shows EF 45-50% Cardiology would want the patient transferred to [place] for possible CABG. --Transaminitis Etiology is unclear Likely from STEMI, Would monitor Patient is also on high-dose statin, could be from that as well Monitor LFTs. If they're persistently high we might have to hold the statin Follow-up CPK -- DIDIER Likely prerenal, creatinine improving Monitor BUN/creatinine Avoid nephrotoxic medications Strict ins and outs --Right knee swelling There is no bruising appreciated around it It is tender to touch X-ray of the right knee was negative for any fracture I'll get CT of the right leg --Right-sided mandibular fracture Maxillofacial surgeon on board Continue with pain management Currently patient declined any intervention --New onset diabetes Diabetic education ICU hyperglycemia protocol --History of hypertension Continue with blood pressure medications --Prophylaxis VTE: IPC's GI: None Lines: Peripheral Diet: Cardiac Plan: Continue to trend troponins. Awaiting possible transfer to [place] Pain control for right mandibular fracture CT of the right leg for the right knee swelling Leukocytosis likely reactive from STEMI. Monitor there is no signs of infection. No indication to give antibiotics. Resume DVT prophylaxis tomorrow Please note the above document was generated using voice recognition software. It may contain grammatical, syntax or spelling errors.Any formal questions or concerns about the content, text or information contained within the body of this dictation should be directly addressed to the provider for clarification. (2) Chest pain: (3) Syncope: (4) Contusion of face: (5) Facial laceration: (6) Hyperlipidemia: (7) Hypertension: (8) CAD (coronary artery disease) of artery bypass graft: (9) Mandibular fracture: Admission and Anticipated Discharge Date Admission Date: January 30, 2020 Subjective Patient seen and examined at bedside. Not in acute distress. Patient does complain of some chest discomfort but the pain is significantly improved compared to the time he came to the hospital. Denies any nausea or vomiting. Does have right-sided jaw pain. No nausea or vomiting. Denies any headache, no dizziness. No difficulty swallowing. Review of Systems Review of Systems: All systems reviewed & are unremarkable except as noted in Subjective Physical Exam Physical Exam: Constitutional: No acute distress HEENT: EOMI, PERRLA, bruising appreciated in the lower lip as well as the chin area. Respiratory system: Decreased air entry bilaterally, no wheeze, no rhonchi, mild crackles bilateral lower lobes CVS: S1-S2 positive, no murmurs or gallops Abdomen: Soft, nontender, nondistended, positive bowel sounds x4 Extremities: +2 pulses bilaterally radialis/ dorsalis pedis, no cyanosis, no edema, anterior lateral swelling appreciated proximal to the right knee, no bruising Neuro: Awake alert oriented x3 Psych: Normal mood and affect G/U: No Jara Skin: no rashes, warm and dry Results & Data Results & Data ([facility]) Vital Signs (Past 12 Hours) Vital Signs Temp Pulse Resp BP Pulse Ox 01/31/20 12:43 36.6 C 01/31/20 11:19 60 20 150/84 H 93 01/31/20 10:19 60 15 169/76 H 94 01/31/20 09:18 59 L 12 129/53 L 95 01/31/20 08:11 36.5 C 01/31/20 08:09 59 L 23 108/75 92 01/31/20 08:00 60 01/31/20 06:00 74 20 92 01/31/20 05:19 60 15 145/85 H 94 01/31/20 05:00 65 17 91 01/31/20 04:18 65 15 152/72 H 93 01/31/20 04:00 65 8 L 92 01/31/20 03:18 65 16 139/62 92 01/31/20 03:00 66 16 91 01/31/20 02:18 68 16 155/62 H 93 01/31/20 02:00 71 16 92 01/31/20 01:18 64 16 134/75 93 01/31/20 02:21 01/31/20 05:18 Coding Level of Care Code 58515 Subseq Hosp Care Lvl [address] elevation (STEMI) myocardial infarction I21.3 Involved coronary artery: unspecified coronary artery Chest pain I25.9 Chest pain type: chest pain due to myocardial ischemia Ischemic chest pain type: unspecified angina pectoris type Syncope R55 Syncope type: unspecified Contusion of face S00.83XA Encounter type: initial encounter Facial laceration S01.81XA Encounter type: initial encounter Hyperlipidemia E78.5 Hypertension I10 CAD (coronary artery disease) of artery bypass graft I25.810 Mandibular fracture S02.609A (1) ST elevation (STEMI) myocardial infarction Involved coronary artery: unspecified coronary artery Qualified Code(s): I21.3 - ST elevation (STEMI) myocardial infarction of unspecified site (2) Chest pain Chest pain type: chest pain due to myocardial ischemia Ischemic chest pain type: unspecified angina pectoris type Qualified Code(s): I25.9 - Chronic ischemic heart disease, unspecified (3) Syncope Syncope type: unspecified Qualified Code(s): R55 - Syncope and collapse (4) Contusion of face Encounter type: initial encounter Qualified Code(s): S00.83XA - Contusion of other part of head, initial encounter (5) Facial laceration Encounter type: initial encounter Qualified Code(s): S01.81XA - Laceration without foreign body of other part of head, initial encounter
--- NOTE | 2020-01-31 14:26 | Communication Note ---
Date of Service: January 31, 2020 I reviewed the patient's case and catheterization (transferred electronically) with Dr Damon of CT surgery at [place]. We are in agreement that the patient has residual disease, not amenable to PCI, and that CABG would be the best option for attempt at complete revascularization. The question however is what is the best timing as the patient has had an acute infarct, with significant troponin elevation suggestive of significant myocardial injury, and has had a recent thrombotic occlusion of the RCA, and is now on dual antiplatelet therapy. We determined that the best approach would be to increase the patient's activity as tolerated, if he has residual angina, best option may be to proceed with CABG sooner rather than later. If he is stable, without arrhythmia, or recurrent angina, patient can be seen as an outpatient by CT surgery in about a week, plans to delay CABG for 1 month to allow the patient to recover. Pt agreeable with this. Updated his girlfriend, Jacqueline, and daughter , Jeannette by phone.
--- NOTE | 2020-01-31 15:03 | CT Scan Report ---
CT femur RT wo con, CT tib/fib RT wo con HISTORY: 75 years-old Male Knee swelling acute pain and swelling of the right knee COMPARISON: Right knee radiographs 01/30/2020 TECHNIQUE: Multiple axial CT images of the right femur, tibia and fibula were obtained without the us e of IV contrast. A dose lowering technique was used consistent with the principals of LJ. FINDINGS: FEMUR: Contrast is noted within a distended urinary bladder. Osteophytic spurring of the right pubic bone. M oderate arterial calcifications. Small fat filled right inguinal hernia. There is an acute hematoma o f the right lateral thigh which involves the vastus lateralis myofascial margin and compresses the mu scle overall measuring approximately 6.7 x 3.0 x 18.5 cm in AP, transverse and craniocaudal dimension s.. Hemorrhage extends into the adjacent subcutaneous tissues of the distal thigh and knee. Evaluatio n for active extravasation is limited without the use of IV contrast. Mild right hip osteoarthritis. Mild to moderate osteoarthritis of the medial and patellofemoral talia rtments of the knee. No acute fracture, dislocation or avascular necrosis. TIBIA/FIBULA: Arterial calcifications. 3.0 cm linear area of calcification with adjacent fat attenuation involves t he mid soleus. No acute intramuscular hematoma of the lower leg. Tendons and ligaments are not well e valuated by CT technique. Moderate thickening of the mid and distal Achilles tendon suggests tendinos is. Mild subcutaneous edema of the pretibial tissues. Moderate enthesophytes of the calcaneus. No acu te fracture or dislocation. IMPRESSION: 1. No acute fracture or dislocation of the right femur, tibia or fibula. 2. Acute intramuscular hematoma of the vastus lateralis and adjacent subcutaneous tissues measures up to 6.7 x 3.0 x 18.5 cm. ACT 112: Negative or not required by law. The above report was generated using voice recognition software. It may contain grammatical, syntax o r spelling errors. Electronically signed by: Jose Mayo M.D. 01/31/2020 3:02 PM
--- NOTE | 2020-01-31 16:01 | Electrocardiogram Report ---
Test Reason : Blood Pressure : / mmHG Vent. Rate : 047 BPM Atrial Rate : 032 BPM P-R Int : 000 ms QRS Dur : 118 ms QT Int : 520 ms P-R-T Axes : -45 079 112 degrees QTc Int : 460 ms Sinus bradycardia with AV dissociation Inferior infarct , new ACUTE [place] / STEMI Consider right ventricular involvement in acute inferior infarct Abnormal ECG When compared with ECG of 24-JUN-2006 21:37, Junctional rhythm has replaced Sinus rhythm Acute Anterior infarct is now Present Confirmed by Severino Ramos ([id number]) on 01/31/2020 4:01:13 PM Referred By: REFERRED SELF Confirmed By:Severino Ramos
--- NOTE | 2020-01-31 16:06 | Electrocardiogram Report ---
Test Reason : Blood Pressure : / mmHG Vent. Rate : 056 BPM Atrial Rate : 056 BPM P-R Int : 190 ms QRS Dur : 104 ms QT Int : 402 ms P-R-T Axes : -18 010 084 degrees QTc Int : 387 ms Sinus bradycardia Serial changes of evolving Inferior infarct Possible Anterior infarct (cited on or before 30-JAN-2020) Abnormal ECG When compared with ECG of 30-JAN-2020 18:01, (unconfirmed) Sinus rhythm has replaced Junctional rhythm Serial changes of evolving Inferior infarct Present Confirmed by Severino Ramos ([id number]) on 01/31/2020 4:06:33 PM Referred By: REFERRED SELF Confirmed By:Severino Ramos
[2020-01-31 16:11] LABS: Albumin Level 3.1 gm/dl (3.4-5.0); Bilirubin Direct 0.1 mg/dl (0-0.2); Bilirubin,Total 0.4 mg/dl (0.2-1); Total Protein 6.7 gm/dl (6.4-8.2)
--- NOTE | 2020-01-31 16:19 | Electrocardiogram Report ---
Test Reason : Blood Pressure : / mmHG Vent. Rate : 057 BPM Atrial Rate : 057 BPM P-R Int : 172 ms QRS Dur : 092 ms QT Int : 418 ms P-R-T Axes : -18 -18 116 degrees QTc Int : 406 ms Sinus bradycardia Inferior infarct (cited on or before 24-JUN-2006) Anterior infarct (cited on or before 30-JAN-2020) Abnormal ECG When compared with ECG of 30-JAN-2020 20:22, (unconfirmed) Serial changes of evolving Inferior infarct Present Confirmed by Severino Ramos ([id number]) on 01/31/2020 4:19:26 PM Referred By: REFERRED SELF Confirmed By:Severino Ramos
--- NOTE | 2020-01-31 17:49 | Hospitalist Progress Note ---
Date of Service January 31, 2020 Assessment & Plan (1) ST elevation (STEMI) myocardial infarction: STEMI: Syncopal Episode RCA occlusion, third-degree AV block, junctional rhythm S/P 2 stents to RCA Elevated Troponin Ischemic cardiomyopathy ECHO: Apical hypokinesis to akinesis, ventricular rate evaluated mildly reduced. EF 45 to 50% grade 1 diastolic dysfunction CXR:Cardiomegaly and mild nonspecific interstitial thickening. This could represent mild pulmonary vascular congestion or a subtle interstitial inflammatory process. No evidence of lobar consolidation. S/P Cardiac Cath: Residual multivessel disease including concern for distal LAD stenosis and high-grade circumflex OM1 disease. Continue aspirin, Brilinta, metoprolol, lisinopril Currently statin held secondary to transaminitis Appreciate urology input Monitor for recurrence of arrhythmias We will eventually need to be evaluated by CT surgery for possible CABG Mandibular fracture Upper teeth right side Facial Laceration S/P sutures Secondary to syncopal episode from above resulting in fall Face CT:Acute fracture through the base the right mandibular condyle. No additional facial fractures identified Appreciate maxillofacial surgery Input Currently patient not interested in any surgical procedure Continue Peridex oral rinse 2 x a day to help promote oral healing R leg Intramuscular hematoma-POA CT:Acute intramuscular hematoma of the vastus lateralis and adjacent subcutaneous tissues measures up to 6.7 x 3.0 x 18.5 cm. Secondary to fall Monitor H&H and Transfuse PRBCs PRN Consider Ortho eval if needed Acute kidney Injury Received gentle IV fluids Avoid nephrotoxic agents as able Monitor renal function Cr levels Improved DM Type II Newly Diagnosed HbA1C:6.6 Continue insulin therapy for now Monitor blood glucose levels Hypertension Continue current medication Monitor Hyperlipidemia Note on hold secondary to transaminitis Monitor LFTs Hypokalemia Monitor electrolytes and replace as needed DVT Px: SCDs RE recent facial/oral bleeding trauma/Hematoma Code Status Full code Disposition To be determined Admission and Anticipated Discharge Date Admission Date: January 30, 2020 Subjective Patient is seen and examined at bedside Chest pain resolved States having minimal jaw pain Denies dyspnea, dizziness, nausea, abdominal pain Offers no other complaints Review of Systems Review of Systems: All systems reviewed & are unremarkable except as noted in HPI & below Physical Exam Physical Exam: Physical Exam: Vitals signs as noted above General Appearance:Obese, no apparent distress Head: normocephalic, +traumatic, Chin laceration, lower lip swelling, tender Eyes: normal inspection, EOMI Neck: supple, Trachea midline Respiratory/Chest: Decreased breath sounds, CTA, No accessory muscle use Cardiovascular: S1, S2, No murmur Abdomen/GI:Soft, Non tender, Bowel sounds present Extremities/Musculoskelatal:normal inspection, R knee minimal swelling, Ecchymosis, 1+ B/L LE edema Neurologic/Psych:AAOX3, grossly no focal neurological deficits Skin: normal color, warm Results & Data Results & Data ([facility]) Vital Signs (Past 12 Hours) Vital Signs Temp Pulse Resp BP Pulse Ox 01/31/20 16:59 67 01/31/20 12:43 36.6 C 01/31/20 11:19 60 20 150/84 H 93 01/31/20 10:19 60 15 169/76 H 94 01/31/20 09:18 59 L 12 129/53 L 95 01/31/20 08:11 36.5 C 01/31/20 08:09 59 L 23 108/75 92 01/31/20 08:00 60 01/31/20 06:00 74 20 92 Laboratory Results Short CBC 01/30/20 01/31/20 Range/Units 18:06 02:21 WBC 14.64 H 12.15 H (4.8-10.8) K/uL Hgb 14.0 13.6 L (14.0-18.0) g/dL Hct 42.1 40.6 L (42-52) % Plt Count 223 196 (130-400) K/uL BMP 01/30/20 01/31/20 18:06 05:18 Sodium 144 141 Potassium 3.4 L 3.9 Chloride 109 H 110 H Carbon Dioxide 25 23 BUN 22 H 23 H Creatinine 1.59 H 1.05 Glucose 176 H 149 H Calcium 8.8 8.1 L Cardiac Enzymes 01/30/20 01/31/20 01/31/20 Range/Units 18:06 02:21 08:30 Total Creatine Kinase 167 (39-308) U/L CK-MB (CK-2) 2.1 (0.5-3.6) ng/ml Troponin I 0.061 H* > 200.000 H* 149.000 H* (0-0.045) ng/ml 01/31/20 Range/Units 15:16 Total Creatine Kinase 2112 H (39-308) U/L CK-MB (CK-2) (0.5-3.6) ng/ml Troponin I (0-0.045) ng/ml Liver Function 01/30/20 01/31/20 01/31/20 Range/Units 18:06 02:21 08:30 Total Bilirubin 0.4 0.3 0.4 (0.2-1) mg/dl Direct Bilirubin 0.1 0.1 (0-0.2) mg/dl AST 57 H 569 H 438 H (15-37) U/L ALT 63 102 H 89 H (12-78) U/L Alkaline Phosphatase 48 48 43 L (45-117) U/L Albumin 3.2 L 3.2 L 3.0 L (3.4-5.0) gm/dl 01/31/20 Range/Units 15:16 Total Bilirubin 0.4 (0.2-1) mg/dl Direct Bilirubin 0.1 (0-0.2) mg/dl AST 349 H (15-37) U/L ALT 85 H (12-78) U/L Alkaline Phosphatase 44 L (45-117) U/L Albumin 3.1 L (3.4-5.0) gm/dl (1) ST elevation (STEMI) myocardial infarction Involved coronary artery: unspecified coronary artery Qualified Code(s): I21.3 - ST elevation (STEMI) myocardial infarction of unspecified site
[2020-01-31 18:26] LABS: Hematocrit (blood only) 37.3 % (42-52); Hemoglobin 12.4 g/dL (14.0-18.0)
[2020-01-31] MEDS ORDERED: SODIUM CHLORIDE 0.9% 1000ML 1,000 ML IV ONE (19:59)
[2020-01-31] MEDS: LATANOPROST 0.005% OP SOLN 2.5 ML BTL OPB SCH (20:35)
[2020-02-01 05:28] LABS: Basophils # (auto) 0.01 K/uL (0-0.2); Basophils % (auto) 0.1 %; Eosinophils # (auto) 0.13 K/uL (0-0.5); Eosinophils % (auto) 1.2 %; Hemoglobin 11.9 g/dL (14.0-18.0); Immature Granulocytes # (auto) 0.02 K/uL (0.00-0.02); Immature Granulocytes % (auto) 0.2 %; Mean Corpuscular Hemoglobin 30.4 pg (25-34); Mean Corpuscular Hgb Conc 33.1 g/dL (32-36); Mean Corpuscular Volume 92.1 fL (80-100); Mean Platelet Volume 10.1 fL (7.4-10.4); Monocytes # (auto) 1.34 K/uL (0.11-0.59); Monocytes % (auto) 12.8 %; Neutrophils % (auto) 65.7 %; Platelet Count 172 K/uL (130-400); RDW Coefficient of Variation 14.7 % (11.5-14.5); RDW Standard Deviation 49.8 fL (36.4-46.3); Red Blood Count 3.91 M/uL (4.7-6.1)
[2020-02-01 05:31] LABS: BUN Creatinine Ratio 18.3 (10-20); Bilirubin,Total 0.6 mg/dl (0.2-1); Calcium 8.1 mg/dl (8.5-10.1); Creatinine Clr Calc Pharmacy 103.9 ml/min; Est GFR (African American) 100.9; Est GFR (Non-African American) 87.1; Magnesium 1.9 mg/dl (1.8-2.4); Potassium 4.1 mmol/L (3.5-5.1); Total Protein 6.3 gm/dl (6.4-8.2)
[2020-02-01] MEDS ORDERED: MAGNESIUM SULFATE / D5W 1 GM/100 ML BAG IV ONE (06:19)
[2020-02-01 07:06] LABS: Troponin I 57.4 ng/ml (0-0.045)
[2020-02-01 07:16] LABS: Bilirubin Direct 0.2 mg/dl (0-0.2)
--- NOTE | 2020-02-01 07:45 | Surgery Consultation ---
Date of Consultation February 01, 2020 Assessment & Plan (1) Hematoma: This patient has a hematoma by CT scan in the right thigh. There is pain and tenderness and it is enlarged but it is not tense. There is no evidence of compartment syndrome. Would not recommend draining at this time especially considering his recent NV. However if there is evidence of compartment syndrome then would recommend orthopedic consult for possibility of fasciotomy and evacuation. History of Present Illness Reason for Consultation: Hematoma right thigh Requesting Physician: Antonio Aviles MD Attending Physician: Antonio Aviles MD History of Present Illness I have been asked by Dr. Aviles to see this 75-year-old man who presented with an acute STEMI. He underwent emergent catheterization. 2 stents were placed in his RCA. He is a candidate for CABG and is apparently awaiting transfer when there is bed availability. He suffered a prolonged period of unconsciousness which resulted in a fall. He developed a mandibular fracture. He also was complaining of pain in the right thigh. CT scan was obtained which showed acute intramuscular hematoma of the vastus lateralis and adjacent subcutaneous tissues measures up to 6.7 x 3.0 x 18.5 cm. He has complaint of tenderness and pain with motion. There is no hip esthesia or paresthesias of the calf ankle or foot. He has no pain in those areas either. He was on antiplatelet therapy prior to the fall. Allergies Allergy/AdvReac Type Severity Reaction Status Date / Time simvastatin AdvReac myalgia Unverified 01/30/20 21:50 Home Medications Medication Instructions Recorded Confirmed Type aspirin [Aspir-Low] 81 mg PO DAILY 01/30/20 01/30/20 History cholecalciferol (vitamin D3) 25 mcg PO DAILY 01/30/20 01/30/20 History furosemide 20 mg PO 2XWK 01/30/20 01/30/20 History isosorbide mononitrate 120 mg PO DAILY 01/30/20 01/30/20 History latanoprost 1 drp OPB HS 01/30/20 01/30/20 History lisinopril 20 mg PO DAILY 01/30/20 01/30/20 History metoprolol tartrate 25 mg PO QPM 01/30/20 01/30/20 History metoprolol tartrate 50 mg PO QAM 01/30/20 01/30/20 History nitroglycerin 0.4 mg SUBLINGUAL .PRN/UD PRN 01/30/20 01/30/20 History omega 5-npk-ufu-fish oil [Fish Oil] 1 cap PO DAILY 01/30/20 01/30/20 History potassium citrate 10 meq PO BID 01/30/20 01/30/20 History rosuvastatin 20 mg PO DAILY 01/30/20 01/30/20 History Patient History Medical History CAD (coronary atherosclerotic disease) Hyperlipidemia Hypertension Social History Smoking Status: Never smoker Do You Dip or Chew Tobacco: Yes; Tobacco Cessation Education Requested by Patient: No Hx Alcohol Use: Yes Alcohol type: beer Hx Substance Use: No Preferred Language: [place] Communication Ability: Effective Police Liaison Required: No Beliefs That Will Affect Care: None Current Living Situation: Alone Other Information That Helps Us Care for You: No Feels Safe at Home: Yes Safety Concerns: Feels Safe At This Time Assistive Devices: None Physical Exam Constitutional: WD/WN, vitals as above + acute distress (None) Respiratory: normal respiratory effort, lungs clear to auscultation Musculoskeletal: Tenderness of the right thigh mostly on the lateral side. It is slightly larger than the left. It is not tense. The right calf ankle and foot are warm. There is no rubor. It is not pale. Results & Data ([facility]) Vital Signs (Past 12 Hours) Vital Signs Temp Pulse Resp BP Pulse Ox 02/01/20 05:18 36.6 C 57 L 16 147/67 H 97 02/01/20 04:19 36.6 C 70 8 L 137/73 94 02/01/20 03:18 56 L 19 103/51 L 92 02/01/20 02:18 65 17 128/69 93 02/01/20 01:18 58 L 12 137/65 93 02/01/20 00:18 57 L 14 135/69 95 02/01/20 00:00 60 01/31/20 23:18 36.7 C 58 L 16 144/73 H 96 01/31/20 22:18 57 L 14 137/64 96 01/31/20 21:18 59 L 20 135/58 L 94 01/31/20 20:18 63 17 150/95 H 96 01/31/20 20:12 68
[2020-02-01] MEDS: METOPROLOL TARTRATE 25 MG TAB PO SCH ×2 (07:54→20:47)
[2020-02-01] MEDS: lisinopril 5 MG TAB PO SCH (07:55)
[2020-02-01] MEDS: ASPIRIN 81 MG ECTAB PO SCH (07:55)
[2020-02-01] MEDS: CHOLECALCIFEROL 1,000 UNITS 25 MCG TAB PO SCH (07:55)
[2020-02-01] MEDS: TICAGRELOR 90 MG TAB PO SCH ×2 (07:55→20:47)
[2020-02-01] MEDS: INSULIN ASPART 100 UNITS/ML 3 ML PEN SC SCH ×4 (07:56→20:48)
--- NOTE | 2020-02-01 08:25 | Critical Care Progress Note ---
Date of Service February 01, 2020 Assessment & Plan (1) Admitted to intensive care unit: Reason Critically Ill: Mr. Bae is a 75 yo F with a PMHx of CAD, who was admitted to the hospital on 01/31/20 after suffering a STEMI of the RCA. He was immediately taken to the equipment operator/laborer/supervisor, at which time aspiration thrombectomy was performed and two overlapping CODY were placed. Patient was loaded with ticagrelor and transferred to the ICU for close monitoring. Over the past 24 hours: Patient has remained hemodynamically stable without recurrence of chest pain or shortness of breath. After his cath, EKG showed improvement in ST elevations and his troponins have trended down. Case discussed with [facility]el[facility] S[facility] Dr. Mcnamara - we will hold off on transferring patent to [place] for CABG at this time. Patient is stable for ICU downgrade. Neuro: CAM ICU: Negative - no acute issues Cardiac: * STEMI - S/P stent placement in RCA x2 and aspiration thrombectomy on 01/30 - Off Integrilin drip - troponin trending down - EKG shows decrease in ST elevations which are appreciated in two three and aVF - 2D echo shows EF 45-50% - Cardiology following: initial thought was to send patient to [place] for CABG, however after discussing with Dr. Mcnamara today, will hold off on tra nsfer at this time unless patient has recurrent chest pain - Continue with beta-mikhail, lisinopril, Brilinta, statin and aspirin * History of hypertension - Continue home dose lisinopril and beta mikhail as above Respiratory: - saturating 94% on room air - no history of underlying lung disease GI: * Transaminitis: Resolving - ALT has normalized - AST 219 down from 349 - likely secondary to hypoperfusion in the setting of an acute STEMI - patient is on a statin, although values trending down despite continued use * Rhabdomyolysis: Resolving - CPK elevated to 2100 on admission, down to 1100 today - likely secondary to fall + downtime RENAL/LYTES: * DIDIER: resolved - Cr 1.59 on admission, down to 0.78 today - likely secondary to hypoperfusion in the setting of acute STEMI : - no issues ENDO: * New onset diabetes - HBA1c 6.6% - contributory to CAD/recent STEMI - continue lisinopril and high-intensity statin as above - Diabetic education - ICU hyperglycemia protocol. Patient will need to be started on oral regimen, such as Metformin, upon discharge. MSK: * Right-sided mandibular fracture - sustained during fall off combine - Maxillofacial surgery recommend surgical correction, however patient declined - pain well controlled on Tylenol; patient able to eat and drink without much difficulty - continue Peridex rinse, twice daily to promote oral healing * Right quadriceps hematoma - CT scan from 01/30 showed acute intramuscular hematoma of the vastus lateralis and adjacent subcutaneous tissues measures up to 6.7 x 3.0 x 18.5 cm - likely secondary to fall - no swelling, bruising, paraesthesias. - general surgery was consulted and recommend against surgical drainage at this time, unless patient develops signs/symptoms of compartment syndrome - continue to surveil for compartment syndrome HEME: * Anemia - Hgb 14.0 on admission, down to 11.9 today - MCV 92, normocytic - possible secondary to surgical blood loss + dilutional. - Repeat H+H today ID: * Leukocytosis: resolved - WBC normal. Patient afebrile. - likely reactive secondary to STEMI LINES/IV ACCESS: Peripheral IVs CODE STATUS: Full Diet: Heart Healthy DVT PROPHYLAXIS: bilateral SCDs; chemoprophylaxis contraindicated in the setting of hematoma Thank you for allowing us to participate in the care of this patient. Please refer to my attending physician's documentation for any further recommendations. Admission and Anticipated Discharge Date Admission Date: January 30, 2020 Supervising Physician Co-Signing Physician Notes Dr Ramos was the resident-physician during care of patient. I separately dennis luated patient for bacon portions of the history and the exam. I was present during the critical portion of medical decision making, and I discussed the case with the resident. I generally agree with the findings and plan except for any additions/exceptions noted. Patient seen and examined at bedside. No acute distress, no adverse events overnight. Patient denies any chest pain, no shortness of breath, no headache, no nausea, no vomiting. Patient has a hematoma in the right leg appreciated on the CT chest. H&H has been stable. Surgery has been consulted were planning to monitor for the time being. If there is any development of compartment syndrome at this point they want intervention by Ortho. Rhabdomyolysis is likely from the fall. It is improving after giving the patient IV fluids. AST are also trending down. There was likely a component of rhabdomyolysis as well as STEMI continue to monitor. Right mandibular fracture. Patient denies any difficulty swallowing or significant pain. Maxillofacial surgeon on board DIDIER has resolved. Plan for transfer to [place] is on hold. Patient is hemodynamically stable to be transferred out of the ICU. Please note the above document was generated using voice recognition software. It may contain grammatical, syntax or spelling errors.Any formal questions or concerns about the content, text or information contained within the body of this dictation should be directly addressed to the provider for clarification. Subjective Mr. Bae reports adequate pain control of his jaw - he is able to eat and swallow normally. He denies any recurrent chest pain or SOB. He does have some pain in the R LE (thigh) particularly when he adjusts himself in bed. He denies any numbness/tingling in the R LE. Review of Systems Review of Systems: All systems reviewed & are unremarkable except as noted in HPI & below Physical Exam Constitutional: WD/WN, vitals as above + obese and cooperative Eyes: + anicteric sclerae ENMT: external ear and nose normal, oropharynx normal Neck: normal visual inspection and trachea midline Respiratory: normal respiratory effort, lungs clear to auscultation Cardiovascular: RRR, no murmur, no edema Heart Sounds: normal S1 and normal S2 Vessels: normal carotid upstroke; no JVD and no carotid bruit Extremities: + pedal edema (trace) Gastrointestinal (Abdomen): normal bowel sounds, soft, nontender, no hepatosplenomegaly Musculoskeletal: Head/Neck/Chest: normal palpation of chest wall Knee: + effusion Right LE - no ecchymosis or pallor. Pedal pulses intact and symmetr ic. Sensation intact to gross touch. quadriceps tender to palpation. Full strength with ankle plantarflexion and dorsiflexion, hip flexion. Skin: no rashes, warm and dry + ecchymosis (Left jaw, under chin, steri strips in place) Psychiatric: A+Ox3, euthymic affect Results & Data Results & Data ([facility]) Vital Signs (Past 12 Hours) Vital Signs Temp Pulse Resp BP Pulse Ox 02/01/20 05:18 36.6 C 57 L 16 147/67 H 97 02/01/20 04:19 36.6 C 70 8 L 137/73 94 02/01/20 03:18 56 L 19 103/51 L 92 02/01/20 02:18 65 17 128/69 93 02/01/20 01:18 58 L 12 137/65 93 02/01/20 00:18 57 L 14 135/69 95 02/01/20 00:00 60 01/31/20 23:18 36.7 C 58 L 16 144/73 H 96 01/31/20 22:18 57 L 14 137/64 96 01/31/20 21:18 59 L 20 135/58 L 94 01/31/20 20:18 63 17 150/95 H 96 Resident Activity Tracking Resident Involvement: Resident Care Provided Care Provided: Adult Hospital Medicine
[2020-02-01] MEDS: INSULIN GLARGINE SOLOSTAR 100 UNITS/ML 3 ML PEN SC SCH ×2 (08:49→20:47)
--- NOTE | 2020-02-01 10:22 | Cardiology Progress Note ---
Date of Service February 01, 2020 Assessment & Plan (1) ST elevation (STEMI) myocardial infarction: Status post acute inferior wall ST segment elevation myocardial infarction due to thrombotic occlusion of the ostial, proximal RCA which the patient underwent aspiration thrombectomy, complex PCI, drug-eluting stent placement proximally to the previously placed RCA stent. -Continue dual antiplatelet therapy with aspirin and clopidogrel. -ST segments improved remarkably on post PCI EKG, with minimal residual ST elevation. (2) CAD (coronary atherosclerotic disease): Residual coronary heart disease, with at least moderate distal left main dise ase, severe proximal LAD disease, critical proximal circumflex disease. -Residual lesions are not amenable to PCI. -CABG best option for hopes of complete revascularization, it is just a question of timing, given his severe recent DC, peak troponin greater than 200 ng/ml, and traumatic injuries. -[place] [facility] to increase patient's activity and optimize medication therapy as much as possible. If he has recurrent symptoms, CABG sooner than later recommended, otherwise plan for outpatient CT surgery consultation in about a week, with for CABG in about a month to allow for recovery, especially if in the thrombotic risks associated with the RCA intervention. -Add low-dose isosorbide mononitrate today. (3) Syncope: Syncope was likely due to electrical instability, transient symptomatic bradycardia related to RCA ischemia. This is resolved post PCI. Low-dose metoprolol reinitiated, metoprolol tartrate 12.5 mg twice daily, as compared to his outpatient dose of 50 mg every morning, 25 mg every afternoon. (4) Mandibular fracture: While not ideal circumstance, continue conservative treatment for now. (5) Hematoma: Patient with traumatic right lower leg hematoma, CT reveals no acute fracture or dislocation of the right femur, tibia or fibula, but there was a significant acute intramuscular hematoma of the vastus lateralis and adjacent soft tissues measuring 6.7 x 3 cm x 18.[address] Maintenance of dual antiplatelet therapy with aspirin and Brilinta critical given his recent thrombotic occlusion with complex PCI of the ostial RCA. -Hemoglobin stable, 11.9. -High CPK elevation, 2112 units/L yesterday, trending down to 1177 units/L today, this may impart be cardiac muscular, but the patient does not have clinical signs symptoms of compartment syndrome at present. -He is not a candidate for aggressive fluid resuscitation given his cardiac status and risk of volume overload. -Continue to monitor clinically. (6) Dyslipidemia: Transaminase elevation trending toward improvement, however AST still elevated 219 units/L. Statin therapy therefore remains on hold. Hopefully will be able to resume this on 02/02/2020. DVT prophylaxis: Consider lower extremity SCDs, I do not think this will interfere with his right leg hematoma. Will discuss with hospitalist team. Disposition: Stable from cardiac perspective for telemetry status rather than ICU status. Admission and Anticipated Discharge Date Admission Date: January 30, 2020 Subjective Mr Bae was seen in cardiology follow up. He was sitting in the bedside chair. No recurrent anginal symptoms. No lightheadedness, dizziness, syncope or near syncope. Telemetry reveals sinus br adycardia in the 50s, without evidence of recurrent junctional rhythm or high- grade AV block. No ventricular arrhythmias. Physical Exam Physical Exam: Temp Pulse Resp BP Pulse Ox 36.3 C L 80 16 150/86 H 93 02/01/20 07:00 02/01/20 10:00 02/01/20 10:00 02/01/20 10:00 02/01/20 10:00 Constitutional: WD/WN, vitals as above ENMT: Ecchymosis of the chin noted, chin laceration without recurrent bleeding. Respiratory: normal respiratory effort, lungs clear to auscultation Cardiovascular: RRR, no murmur, no edema Vessels: no JVD Musculoskeletal: Pain at the level of the right midline, without ecchymosis Neurologic: PERRL, EOMI, accommodation nl, no face palsy, no dysarthria Results & Data ([facility]) Vital Signs (Past 12 Hours) Vital Signs Temp Pulse Resp BP Pulse Ox 02/01/20 10:00 80 16 150/86 H 93 02/01/20 09:00 58 L 21 94 02/01/20 08:00 69 21 93 02/01/20 07:00 36.3 C L 67 16 153/64 H 94 02/01/20 05:18 36.6 C 57 L 16 147/67 H 97 02/01/20 04:19 36.6 C 70 8 L 137/73 94 02/01/20 03:18 56 L 19 103/51 L 92 02/01/20 02:18 65 17 128/69 93 02/01/20 01:18 58 L 12 137/65 93 02/01/20 00:18 57 L 14 135/69 95 02/01/20 00:00 60 01/31/20 23:18 36.7 C 58 L 16 144/73 H 96 Laboratory Results Cardiac Enzymes 01/31/20 02/01/20 Range/Units 15:16 04:31 AST 349 H 219 H (15-37) U/L Troponin I 57.400 H* (0-0.045) ng/ml CBC 01/31/20 02/01/20 Range/Units 18:17 04:31 WBC 10.50 (4.8-10.8) K/uL RBC 3.91 L (4.7-6.1) M/uL Hgb 12.4 L 11.9 L (14.0-18.0) g/dL Hct 37.3 L 36.0 L (42-52) % Plt Count 172 (130-400) K/uL Neut # (Auto) 6.90 H (1.4-6.5) K/uL Lymph # (Auto) 2.10 (1.2-3.4) K/uL [place] # (Auto) 1.34 H (0.11-0.59) K/uL Eos # (Auto) 0.13 (0-0.5) K/uL Baso # (Auto) 0.01 (0-0.2) K/uL Comprehensive Metabolic Panel 01/31/20 02/01/20 Range/Units 15:16 04:31 Sodium 140 (136-145) mmol/L Potassium 4.1 (3.5-5.1) mmol/L Chloride 109 H (98-107) mmol/L Carbon Dioxide 26 (21-32) mmol/L BUN 14 (7-18) mg/dl Creatinine 0.78 (0.6-1.4) mg/dl Glucose 106 H (70-99) mg/dl Calcium 8.1 L (8.5-10.1) mg/dl Direct Bilirubin 0.1 0.2 D (0-0.2) mg/dl AST 349 H 219 H (15-37) U/L ALT 85 H 68 (12-78) U/L Alkaline Phosphatase 44 L 41 L (45-117) U/L Total Protein 6.7 6.3 L (6.4-8.2) gm/dl Albumin 3.1 L 3.0 L (3.4-5.0) gm/dl Intake and Output 01/31/20 02/01/20 02/01/20 22:59 06:59 14:59 Intake Total 400 / 4068.333 1400 / 4068.333 100 / 100 Output Total 900 / 900 250 / 250 Balance 400 / 3168.333 500 / 3168.333 -150 / -150 Intake: IV 1000 / 2278.333 100 / 100 MAGNESIUM SULFATE / D5W 1 gm In 100 / 100 100 ml @ 50 mls/hr IV ONE ONE Rx#:[id number] Nss 1000ML 1,000 ml @ 150 mls/ 1000 / 1000 hr IV .[id number] ONE Rx#:[id number] Oral 400 / 1790 400 / 1790 Output: Urine 900 / 900 250 / 250 Other: # Unmeasured Voids 1 Weight 122 kg Weight Measurement Method Built in [facility] (1) ST elevation (STEMI) myocardial infarction Involved coronary artery: unspecified coronary artery Qualified Code(s): I21.3 - ST elevation (STEMI) myocardial infarction of unspecified site (2) Syncope Syncope type: unspecified Qualified Code(s): R55 - Syncope and collapse
[2020-02-01] MEDS: traMADol HCL 50 MG TABLET PO PRN (11:26)
--- NOTE | 2020-02-01 12:04 | Hospitalist Progress Note ---
Date of Service February 01, 2020 Assessment & Plan (1) ST elevation (STEMI) myocardial infarction: STEMI: Syncopal Episode RCA occlusion, third-degree AV block, junctional rhythm S/P 2 stents to RCA Elevated Troponin Ischemic cardiomyopathy ECHO: Apical hypokinesis to akinesis, ventricular rate evaluated mildly reduced. EF 45 to 50% grade 1 diastolic dysfunction CXR:Cardiomegaly and mild nonspecific interstitial thickening. This could represent mild pulmonary vascular congestion or a subtle interstitial inflammatory process. No evidence of lobar consolidation. S/P Cardiac Cath: Residual multivessel disease including concern for distal LAD stenosis and high-grade circumflex OM1 disease. Continue aspirin, Brilinta, metoprolol, lisinopril, Isosorbide Currently statin held secondary to transaminitis, Rhabdo Appreciate Cardiology input Monitor for recurrence of arrhythmias We will eventually need to be evaluated by CT surgery for possible CABG If recurrence of symptoms, will need CABG sooner Currently Asymptomatic Mandibular fracture Upper teeth right side Facial Laceration S/P sutures Secondary to syncopal episode from above resulting in fall Face CT:Acute fracture through the base the right mandibular condyle. No additional facial fractures identified Appreciate maxillofacial surgery Input Currently patient not interested in any surgical procedure Continue Peridex oral rinse 2 x a day to help promote oral healing R leg Intramuscular hematoma-POA CT:Acute intramuscular hematoma of the vastus lateralis and adjacent subcutaneous tissues measures up to 6.7 x 3.0 x 18.5 cm. Secondary to fall Monitor H&H and Transfuse PRBCs PRN Consider Ortho eval if needed Acute kidney Injury Received gentle IV fluids Avoid nephrotoxic agents as able Monitor renal function Cr levels Improved Rhabdomyolysis-POA Secondary to Fall CK levels:[id number] Received IV fluids with caution given Ischemic Cardiomyopathy DM Type II Newly Diagnosed HbA1C:6.6 Continue insulin therapy for now Monitor blood glucose levels Hypertension Continue current medication Monitor Hyperlipidemia Note on hold secondary to transaminitis Monitor LFTs Hypokalemia Monitor electrolytes and replace as needed DVT Px: SCDs RE recent facial/oral bleeding trauma/Hematoma Code Status Full code Disposition PT/OT Transfer out of ICU Admission and Anticipated Discharge Date Admission Date: January 30, 2020 Subjective Patient is seen and examined at bedside States having minimal Jaw pain and Right leg pain No other complaints Denies chest pain, dyspnea, dizziness, nausea, abdominal pain Review of Systems Review of Systems: All systems reviewed & are unremarkable except as noted in HPI & below Physical Exam Physical Exam: Physical Exam: Vitals signs as noted above General Appearance:Obese, no apparent distress Head: normocephalic, +traumatic, Chin laceration, lower lip swelling, tender, +Echymosis Eyes: normal inspection, EOMI Neck: supple, Trachea midline Respiratory/Chest: Decreased breath sounds, CTA, No accessory muscle use Cardiovascular: S1, S2, No murmur Abdomen/GI:Soft, Non tender, Bowel sounds present Extremities/Musculoskelatal:normal inspection, R knee and suprapatellar region swelling, tender, Ecchymosis, 1+ B/L LE edema Neurologic/Psych:AAOX3, grossly no focal neurological deficits Skin: normal color, warm Results & Data Results & Data ([facility]) Vital Signs (Past 12 Hours) Vital Signs Temp Pulse Pulse Resp BP BP Pulse Ox 02/01/20 11:44 36.3 C L 66 18 171/79 H 96 02/01/20 10:00 80 16 150/86 H 93 02/01/20 09:00 58 L 21 94 02/01/20 08:00 69 21 93 02/01/20 07:00 36.3 C L 67 16 153/64 H 94 02/01/20 05:18 36.6 C 57 L 16 147/67 H 97 02/01/20 04:19 36.6 C 70 8 L 137/73 94 02/01/20 03:18 56 L 19 103/51 L 92 02/01/20 02:18 65 17 128/69 93 02/01/20 01:18 58 L 12 137/65 93 02/01/20 00:18 57 L 14 135/69 95 Laboratory Results Short CBC 01/31/20 02/01/20 02/01/20 Range/Units 18:17 04:31 14:39 WBC 10.50 (4.8-10.8) K/uL Hgb 12.4 L 11.9 L 11.9 L (14.0-18.0) g/dL Hct 37.3 L 36.0 L 35.3 L (42-52) % Plt Count 172 (130-400) K/uL BMP 02/01/20 04:31 Sodium 140 Potassium 4.1 Chloride 109 H Carbon Dioxide 26 BUN 14 Creatinine 0.78 Glucose 106 H Calcium 8.1 L Cardiac Enzymes 02/01/20 02/01/20 Range/Units 04:31 04:31 Total Creatine Kinase 1177 H (39-308) U/L Troponin I 57.400 H* (0-0.045) ng/ml Liver Function 02/01/20 Range/Units 04:31 Total Bilirubin 0.6 (0.2-1) mg/dl Direct Bilirubin 0.2 D (0-0.2) mg/dl AST 219 H (15-37) U/L ALT 68 (12-78) U/L Alkaline Phosphatase 41 L (45-117) U/L Albumin 3.0 L (3.4-5.0) gm/dl (1) ST elevation (STEMI) myocardial infarction Involved coronary artery: unspecified coronary artery Qualified Code(s): I21.3 - ST elevation (STEMI) myocardial infarction of unspecified site
[2020-02-01] MEDS: ISOSORBIDE MONO EXTENDED REL 30 MG TABCR PO SCH (12:14)
--- NOTE | 2020-02-01 13:00 | Billing Data ---
Date of Service February 01, 2020 Coding Level of Care Code 50640 Subseq Hosp Care Lvl 3
[2020-02-01 14:48] LABS: Hematocrit (blood only) 35.3 % (42-52); Hemoglobin 11.9 g/dL (14.0-18.0)
--- NOTE | 2020-02-01 17:23 | Communication Note ---
Date of Service: February 01, 2020 I called and updated Jacqueline and Jeannette by phone.
[2020-02-01] MEDS: LATANOPROST 0.005% OP SOLN 2.5 ML BTL OPB SCH (20:48)
[2020-02-02 05:11] LABS: Hematocrit (blood only) 35.6 % (42-52); Hemoglobin 11.8 g/dL (14.0-18.0); Mean Corpuscular Hemoglobin 30.2 pg (25-34); Mean Corpuscular Hgb Conc 33.1 g/dL (32-36); Platelet Count 171 K/uL (130-400); RDW Coefficient of Variation 14.2 % (11.5-14.5); RDW Standard Deviation 47.2 fL (36.4-46.3); Red Blood Count 3.91 M/uL (4.7-6.1); White Blood Count 9.92 K/uL (4.8-10.8)
[2020-02-02 05:40] LABS: BUN Creatinine Ratio 13.9 (10-20); Bilirubin Direct 0.2 mg/dl (0-0.2); Calcium 8.3 mg/dl (8.5-10.1); Creatinine Clr Calc Pharmacy 98.8 ml/min; Est GFR (African American) 98.9; Est GFR (Non-African American) 85.3; Magnesium 1.9 mg/dl (1.8-2.4); Potassium 3.8 mmol/L (3.5-5.1)
[2020-02-02 05:42] LABS: Bilirubin,Total 0.6 mg/dl (0.2-1); Total Protein 6.6 gm/dl (6.4-8.2)
[2020-02-02 07:58] VITALS: BP 143/68; TEMP 97.5; O2SAT 95
[2020-02-02] MEDS: lisinopril 5 MG TAB PO SCH (08:02)
[2020-02-02] MEDS: TICAGRELOR 90 MG TAB PO SCH (08:02)
[2020-02-02] MEDS: ASPIRIN 81 MG ECTAB PO SCH (08:02)
[2020-02-02] MEDS: ISOSORBIDE MONO EXTENDED REL 30 MG TABCR PO SCH (08:02)
[2020-02-02] MEDS: CHOLECALCIFEROL 1,000 UNITS 25 MCG TAB PO SCH (08:02)
[2020-02-02] MEDS: METOPROLOL TARTRATE 25 MG TAB PO SCH (08:03)
[2020-02-02] MEDS: INSULIN GLARGINE SOLOSTAR 100 UNITS/ML 3 ML PEN SC SCH (08:03)
[2020-02-02] MEDS: INSULIN ASPART 100 UNITS/ML 3 ML PEN SC SCH (08:04)
[2020-02-02] MEDS ORDERED: ROSUVASTATIN CALCIUM 20 MG TAB PO SCH (09:00)
--- NOTE | 2020-02-02 09:06 | Hospitalist Progress Note ---
Date of Service February 02, 2020 Assessment & Plan (1) ST elevation (STEMI) myocardial infarction: Presented with acute inferior STEMI. Heart alert called and patient taken emergently to labor custodian. Cath findings: LM -calcified, 30% ostial, 30 to 40% distal stenosis LAD -medium caliber, hazy 60% ostial and proximal disease, mid segment stent patent with 40% in-stent restenosis, distal vessel with luminal irregularities wraps on apex. Circumflex -80% ostial stenosis extending into large high OM1. OM1 without additional disease. Very small AV groove mid/distal circumflex with mild diffuse disease. RCA -50 to 60% ostial stenosis with waveform dampening with catheter engagement. 100% acute proximal stenosis just prior to previous mid RCA stent. Aspiration thrombectomy RCA thrombus performed. Mid RCA stent dilated, new drug-eluting stent placed. Ostial RCA lesion stented with drug-eluting stent. Echo 01/30 showed severe concentric LVH, apical hypokinesis, LVEF 45-50%. Received dual antiplatelet therapy with aspirin and ticagrelor, metoprolol, lisinopril, isosorbide mononitrate, statin. CABG recommended for residual lesions and arrangements made for appointment with CT surgery at [facility]. Ambulating without anginal symptoms day of discharge. (2) Syncope: Syncopal episode associated with chest pain. Bradycardic when EMS evaluated him. Probable lorena-arrhythmia secondary to inferior STEMI. Rhythm stabilized after cardiac cath with PCI. (3) Mandibular fracture: Syncopal episode with CP. Fell and suffered mandibular fracture. Oral Surgery consulted. Surgical repair deferred in light of acute STEMI. Follow-up with Oral Surgery for ongoing pain or other difficulties. (4) Hematoma: Injured right thigh when he fell and subsequently developed large hematoma. Received IV heparin, Integrilin, ASA, and ticagrelor. General Surgery consulted. No need for surgical intervention. Exam / symptoms improved by discharge. Hgb 11.8 day of discharge. (5) Acute kidney injury: Serum creatinine 1.59 day of admission. Creatinine day of discharge 0.82. (6) Hypertension: Discharged on metoprolol, lisinopril, nitrates. Follow and titrate Rx. (7) Diabetes mellitus: Hgb A1c 6.6. FBS day of discharge 101. Dietary management. Follow. (8) Hyperlipidemia: LDL-c = 24. Discharged on rosuvastatin 20 mg daily. (9) Discharge planning issues: Discharged to home. Internal Medicine follow-up with Dr. Hidalgo. Cardiology follow-up with Dr. Pedroza and Kirti Fernandez PA-C. Admission and Anticipated Discharge Date Admission Date: January 30, 2020 Subjective Recheck for STEMI and other problems. Patient seen in their room around 0845. Doing well. No CP or SOB. Jaw pain improved. Tolerating full liquid diet. RLE pain improved. Ambulating in room. Would like to go home. Physical Exam Constitutional: no acute distress Eyes: + anicteric sclerae ENMT: ecchymoses chin / neck; steri-strips applied to laceration chin Respiratory: normal respiratory effort, lungs clear to auscultation Cardiovascular: Rate/Rhythm: regular rate and regular rhythm Vessels: no JVD and + abnormal peripheral pulses (RT DP 1/2; RT PT 2/2) Extremities: normal capillary refill (RT toes); no calf tenderness and no edema Gastrointestinal (Abdomen): normal bowel sounds, soft, nontender, no hepatosplenomegaly Musculoskeletal: Extremities: no cyanosis no significant swelling or tenderness RLE Skin: no rashes, warm and dry Psychiatric: Orientation: alert and oriented x 3 Results & Data Results & Data ([facility]) Vital Signs (Past 12 Hours) Vital Signs Temp Pulse Pulse Resp BP Pulse Ox 02/02/20 07:57 36.4 C L 61 20 143/68 H 95 02/02/20 03:01 36.7 C 67 19 125/61 94 02/02/20 00:00 65 02/01/20 23:25 36.5 C 61 19 115/77 95 Laboratory Results Laboratory Results - last 24 hr 02/01/20 02/01/20 02/01/20 11:22 14:39 16:16 WBC RBC Hgb 11.9 L Hct 35.3 L MCV MCH MCHC RDW Std Deviation RDW Coeff of Wayne Plt Count MPV Sodium Potassium Chloride Carbon Dioxide Anion Gap BUN Creatinine Est Cr Clr Drug Dosing Est GFR ( Amer) Est GFR (Non-Af Amer) BUN/Creatinine Ratio Glucose POC Glucose 92 82 Calcium Magnesium Total Bilirubin Direct Bilirubin AST ALT Alkaline Phosphatase Total Protein Albumin 02/01/20 02/02/20 02/02/20 20:28 04:45 04:45 WBC 9.92 RBC 3.91 L Hgb 11.8 L Hct 35.6 L MCV 91.0 MCH 30.2 MCHC 33.1 RDW Std Deviation 47.2 H RDW Coeff of Wayne 14.2 Plt Count 171 MPV 10.0 Sodium 139 Potassium 3.8 Chloride 107 Carbon Dioxide 27 Anion Gap 5.0 BUN 11 Creatinine 0.82 Est Cr Clr Drug Dosing 98.8 Est GFR ( Amer) 98.9 Est GFR (Non-Af Amer) 85.3 BUN/Creatinine Ratio 13.9 Glucose 97 POC Glucose 76 Calcium 8.3 L Magnesium 1.9 Total Bilirubin 0.6 Direct Bilirubin 0.2 AST 128 H ALT 56 Alkaline Phosphatase 42 L Total Protein 6.6 Albumin 3.0 L 02/02/20 07:18 WBC RBC Hgb Hct MCV MCH MCHC RDW Std Deviation RDW Coeff of Wayne Plt Count MPV Sodium Potassium Chloride Carbon Dioxide Anion Gap BUN Creatinine Est Cr Clr Drug Dosing Est GFR ( Amer) Est GFR (Non-Af Amer) BUN/Creatinine Ratio Glucose POC Glucose 101 H Calcium Magnesium Total Bilirubin Direct Bilirubin AST ALT Alkaline Phosphatase Total Protein Albumin ECG Additional Comments: EKG performed at 0852 reviewed and demonstrated NSR at 60 / min, Q-waves III, aVF; inverted T-waves II, III, aVF, poor R-wave progression. (1) ST elevation (STEMI) myocardial infarction Involved coronary artery: unspecified coronary artery Qualified Code(s): I21.3 - ST elevation (STEMI) myocardial infarction of unspecified site (2) Syncope Syncope type: unspecified Qualified Code(s): R55 - Syncope and collapse
--- NOTE | 2020-02-02 09:38 | Electrocardiogram Report ---
Test Reason : Blood Pressure : / mmHG Vent. 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
[2020-02-02 10:30] VITALS: PULSE 61
--- NOTE | 2020-02-02 10:57 | Cardiology Progress Note ---
Date of Service February 02, 2020 Assessment & Plan (1) ST elevation (STEMI) myocardial infarction: Status post acute inferior wall ST segment elevation myocardial infarction due to thrombotic occlusion of the ostial, proximal RCA which the patient underwent aspiration thrombectomy, complex PCI, drug-eluting stent placement proximally to the previously placed RCA stent. -Continue dual antiplatelet therapy with aspirin and clopidogrel. -ST segments improved remarkably on post PCI EKG, with minimal residual ST elevation. (2) CAD (coronary atherosclerotic disease): Residual coronary heart disease, with at least moderate distal left main dise ase, severe proximal LAD disease, critical proximal circumflex disease. -Residual lesions are not amenable to PCI. -CABG best option for hopes of complete revascularization, it is just a question of timing, given his severe recent TN, peak troponin greater than 200 ng/ml, and traumatic injuries. -Telephone advice from CT surgery, [facility], to increase patient's activity and optimize medication therapy as much as possible. If he has recurrent symptoms, CABG sooner than later recommended, otherwise plan for outpatient CT surgery consultation in about a week, with for CABG in about a month to allow for recovery, especially if in the thrombotic risks associated with the RCA intervention. -Added low-dose isosorbide mononitrate extended release, 50 mg, titrate to 30 mg today at time of discharge. (3) Syncope: Syncope was likely due to electrical instability, transient symptomatic bradycardia related to RCA ischemia. This is resolved post PCI. Transition to metoprolol succinate 25 mg 1 time per day in the morning. Dose reduced compared to his previous outpatient regimen. (4) Mandibular fracture: While not ideal circumstance, continue conservative treatment for now. (5) Hematoma: Patient with traumatic right lower leg hematoma, CT reveals no acute fracture or dislocation of the right femur, tibia or fibula, but there was a significant acute intramuscular hematoma of the vastus lateralis and adjacent soft tissues measuring 6.7 x 3 cm x 18.[address] Maintenance of dual antiplatelet therapy with aspirin and Brilinta critical given his recent thrombotic occlusion with complex PCI of the ostial RCA. -Hemoglobin stable, 11.9. -High CPK elevation, 2112 units/L yesterday, trending down to 1177 units/L today, this may impart be cardiac muscular, but the patient does not have clinical signs symptoms of compartment syndrome at present. -He is not a candidate for aggressive fluid resuscitation given his cardiac status and risk of volume overload. -Continue to monitor clinically. (6) Dyslipidemia: Transaminases continue to improve. Causes include hepatic congestion post TN, lower extremity hematoma. Resume prior to hospital dose of rosuvastatin 20 mg for discharge. DISPOSITION: Stable for discharge with plans for close post hospital follow up. Medication changes discussed with Dr Barbosa. PATIENT NOT TO MISS ANY DOSES OF ASPIRIN OR BRILINTA CT surgery consult had been scheduled for 02/08, now moved to 02/06/20. 02/06/2020 12:30 PM Provider Darian Mclean MD Department Cardiothoracic Surg [facility] will request cardio follow up for February,. Admission and Anticipated Discharge Date Admission Date: January 30, 2020 Subjective Mr Bae was seen in follow up. He is sitting in the bedside chair. No anginal symptoms. Jaw pain and right lower leg pain are tolerable. Telemetry reveals sinus rhythm in the 60s. Physical Exam Physical Exam: Temp Pulse Resp BP Pulse Ox 36.4 C L 61 20 143/68 H 95 02/02/20 10:29 02/02/20 10:29 02/02/20 10:29 02/02/20 10:29 02/02/20 10:29 Constitutional: No acute distress ENMT: Swelling, ecchymosis of the chin/jaw, unchanged Respiratory: normal respiratory effort, lungs clear to auscultation Cardiovascular: RRR, no murmur, no edema Gastrointestinal (Abdomen): normal bowel sounds, soft, nontender, no hepatosplenomegaly Neurologic: PERRL, EOMI, accommodation nl, no face palsy, no dysarthria Results & Data ([facility]) Vital Signs (Past 12 Hours) Vital Signs Temp Pulse Pulse Resp BP Pulse Ox 02/02/20 10:29 36.4 C L 61 20 143/68 H 95 02/02/20 08:00 58 L 02/02/20 07:57 36.4 C L 61 20 143/68 H 95 02/02/20 03:01 36.7 C 67 19 125/61 94 02/02/20 00:00 65 02/01/20 23:25 36.5 C 61 19 115/77 95 Laboratory Results Cardiac Enzymes 02/02/20 Range/Units 04:45 AST 128 H (15-37) U/L CBC 12/23/20 12/24/20 Range/Units 14:39 04:45 WBC 9.92 (4.8-10.8) K/uL RBC 3.91 L (4.7-6.1) M/uL Hgb 11.9 L 11.8 L (14.0-18.0) g/dL Hct 35.3 L 35.6 L (42-52) % Plt Count 171 (130-400) K/uL Comprehensive Metabolic Panel 02/02/20 Range/Units 04:45 Sodium 139 (136-145) mmol/L Potassium 3.8 (3.5-5.1) mmol/L Chloride 107 (98-107) mmol/L Carbon Dioxide 27 (21-32) mmol/L BUN 11 (7-18) mg/dl Creatinine 0.82 (0.6-1.4) mg/dl Glucose 97 (70-99) mg/dl Calcium 8.3 L (8.5-10.1) mg/dl Direct Bilirubin 0.2 (0-0.2) mg/dl AST 128 H (15-37) U/L ALT 56 (12-78) U/L Alkaline Phosphatase 42 L (45-117) U/L Total Protein 6.6 (6.4-8.2) gm/dl Albumin 3.0 L (3.4-5.0) gm/dl Intake and Output 02/01/20 02/02/20 02/02/20 22:59 06:59 14:59 Intake Total 740 / 1180 100 / 1180 Output Total 300 / 550 Balance 740 / 630 -200 / 630 Intake: Oral 740 / 1080 100 / 1080 Output: Urine 300 / 550 Other: # Unmeasured Voids 2 2 Weight 122.6 kg 122.6 kg Weight Measurement Method Built in [facility] Patient Weight 02/03/20 06:59 Weight 122.6 kg Diagnostic Findings EKG this morning reveals sinus rhythm at 60 bpm, age-indeterminate inferior infarct pattern with inferior Q waves, age-indeterminate anterior infarction pattern with poor R wave progression, stable findings. (1) ST elevation (STEMI) myocardial infarction Involved coronary artery: unspecified coronary artery Qualified Code(s): I21.3 - ST elevation (STEMI) myocardial infarction of unspecified site (2) Syncope Syncope type: unspecified Qualified Code(s): R55 - Syncope and collapse
--- NOTE | 2020-02-02 18:09 | Discharge Summary ---
Date of Service Date of Admission: 01/30/20 Date of Discharge: 02/02/20 Admission HPI Per Admitting Provider History obtained from patient and records. Medical history significant for CAD status post stent, PVD status post surgery, hypertension, hyperlipidemia, past tobacco abuse. Patient was at his workshop yesterday when he noted burning substernal chest pain without radiation similar to heart attack in the past. Patient noted dizziness described as lightheadedness followed by unwitnessed syncopal event. Patient woke up with right-sided jaw pain, missing 2 front teeth, and a bleeding laceration on his chin. He was able to call to a phone in his office and was able to call EMS. Patient noted to be hypotensive and bradycardic upon arrival of EMS. ST elevations noted in the inferior leads. Heart alert called upon arrival at the ER. Emergent cardiac catheterization and PCI subsequently done. Patient currently comfortable at the ICU watching television. Principal Diagnosis inferior ST elevation myocardial infarction multi-vessel coronary artery disease OTHER ACUTE / NEW DIAGNOSES: mandibular fracture hematoma right thigh acute kidney injury DM type 2 Discharge Data Allergies Allergy/AdvReac Type Severity Reaction Status Date / Time simvastatin AdvReac myalgia Unverified 01/30/20 21:50 Consultations 01/30/20 20:14 Consult Cardiac Rehabilitation Routine Consult Case Management - Discharge Planning Routine Consult Civil Engineering Design Draftsperson Routine 01/30/20 20:26 Consult Oromaxillofacial Surgery Routine 01/30/20 21:21 Consult Cardiology Routine Consult Case Management - Discharge Planning Routine 01/31/20 19:07 Consult General Surgery Routine Procedures Performed Operation Date: 01/30/20 18:00 Actual Procedures p Aspiration/PCI w/CODY for Stemi - Matt Jain MD s Cineradiography w/Routine Exam - Matt Jain MD s IVUS Coronary Single Vessel - Matt Jain MD Ordered Studies 01/30/20 06:38 CL IVUS Coronary Single Vessel Routine 01/30/20 17:58 CT head/brain wo con Stat 01/30/20 18:03 CT cervical spine wo con Stat CT facial bones wo con Stat 01/30/20 18:05 CL Cath Imgs for PACS use only Stat 01/31/20 13:12 CT femur RT wo con Routine CT tib/fib RT wo con Routine Diabetes Follow up Diabetes Follow-up Needed for Newly Diagnosed Diabetes Hospital Course (1) ST elevation (STEMI) myocardial infarction: Presented with acute inferior STEMI. Heart alert called and patient taken emergently to orthodontic laboratory technician. Cath findings: LM -calcified, 30% ostial, 30 to 40% distal stenosis LAD -medium caliber, hazy 60% ostial and proximal disease, mid segment stent patent with 40% in-stent restenosis, distal vessel with luminal irregularities wraps on apex. Circumflex -80% ostial stenosis extending into large high OM1. OM1 without additional disease. Very small AV groove mid/distal circumflex with mild diffuse disease. RCA -50 to 60% ostial stenosis with waveform dampening with catheter engagement. 100% acute proximal stenosis just prior to previous mid RCA stent. Aspiration thrombectomy RCA thrombus performed. Mid RCA stent dilated, new drug-eluting stent placed. Ostial RCA lesion stented with drug-eluting stent. Echo 01/30 showed severe concentric LVH, apical hypokinesis, LVEF 45-50%. Received dual antiplatelet therapy with aspirin and ticagrelor, metoprolol, lisinopril, isosorbide mononitrate, statin. CABG recommended for residual lesions and arrangements made for appointment with CT surgery at [facility]. Ambulating without anginal symptoms day of discharge. (2) Syncope: Syncopal episode associated with chest pain. Bradycardic when EMS evaluated him. Probable lorena-arrhythmia secondary to inferior STEMI. Rhythm stabilized after cardiac cath with thrombectomy + PCI. (3) Mandibular fracture: Syncopal episode with CP. Fell and suffered mandibular fracture. Oral Surgery consulted. Surgical repair deferred in light of acute STEMI. Follow-up with Oral Surgery for ongoing pain or other difficulties. (4) Hematoma: Injured right thigh when he fell and subsequently developed large hematoma. Received IV heparin, Integrilin, ASA, and ticagrelor. General Surgery consulted. No need for surgical intervention. Exam / symptoms improved by discharge. Hgb 11.8 day of discharge. (5) Acute kidney injury: Serum creatinine 1.59 day of admission. Creatinine day of discharge 0.82. (6) Hypertension: Discharged on metoprolol, lisinopril, nitrates. Follow and titrate Rx. (7) Diabetes mellitus: Hgb A1c 6.6. FBS day of discharge 101. Dietary management. Follow. (8) Hyperlipidemia: LDL-c = 24. Discharged on rosuvastatin 20 mg daily. (9) Discharge planning issues: Discharged to home. Internal Medicine follow-up with Dr. Hidalgo. Cardiology follow-up with Dr. Pedroza and Kirti Fernandez PA-C. Total Time Total Time Spent Total Time Spent (In Minutes): 45 Discharge Plan Discharge Items Patient Disposition: Home - Self-Care Reason For Visit: chest pain Discharge Diagnosis: myocardial infarction (heart attack) fractured mandible (broken jaw) hematoma right leg (blood collection) Activity: As commented below Activity Comment: light activity until further notice Non-emergency contact: Primary Care Provider, Hospitalist and Paper Tester Call non-emergency contact if: you have any medication questions and your symptoms worsen Follow-up/Referrals: Darwin Pedroza MD [Physician] - Boris Archibald DMD [Physician] - (Please call office after bypass surgery if your broken jaw does not heal.) Barndon Hidalgo, [Primary Care Provider] - None Diet: Heart Healthy Diet Texture: Easy to Chew Diet Comment: Very soft / liquid diet until jaw heals. Try supplements like Ensure. Addtl Attending Provider Instructions: MEDICATION CHANGES: STOP: isosorbide mononitrate (Imdur) 120 mg metoprolol tartrate omega-2 fatty acid (fish oil) NEW MEDICATIONS: ticagrelor (Brilinta) 90 mg twice a day Blood thinner to keep stents open. You must take it every day unless Paper Tester tells you other pandey. metoprolol succinate (Toprol XL) 25 mg daily Treats heart problems and blood pressure. isosorbide mononitrate (Imdur) 30 mg daily Treats heart problems and blood pressure. Prescriptions for new medications sent to [facility] in [place] (15 days + refills). Please use these prescriptions until [facility] sends 90 day supply. SUMMARY OF TEST RESULTS: Electrocardiogram showed that you were having a heart attack. Cardiac catheterization showed blockages in multiple arteries in the heart. 2 stents were placed in the right coronary artery. LDL cholesterol was 24. Continue taking rosuvastatin (Crestor). Blood sugars ran as high as 175 which is high. Hemoglobin A1c level is a blood test to monitor blood sugars. It was 6.6, which is a little high as well. Please ask Dr. Hidalgo to keep an eye on your blood sugars. COVID antigen test was negative on 12/21/20. X-rays and CT of right leg did not show any broken bones. CT scan of right leg showed a hematoma (collection of blood). CT scan of face showed broken jaw on the right side. RECOMMENDATIONS FOR FOLLOW-UP: Dr. Mcnamara made arrangements for you to be seen by Cardiothoracic Surgery at [facility] to discuss bypass surgery. 02/06/2020 12:30 PM (Please arrive at least 15 minutes early to register.) Darian Mclean MD Cardiothoracic Surg [facility] Contact Dr. Archibald's office if you continue to have jaw pain. OTHER INSTRUCTIONS: Is is very important that you continue taking aspirin and ticagrelor (Brilinta) unless otherwise instructed by Cardiology. If you stop them, you could develop blockage in your stents and have another heart attack. Steri-strips were used on cut on chin. Leave them on until they fall off on their own. Seek medical attention if you have: * temperature above 101 * chest pain or trouble breathing * abdominal pain, nausea, vomiting * diarrhea, dark stools or bloody stools * any unanswered questions or concerns Call 911 if symptoms are severe. Please take good care of yourself. Call if you have any questions or problems. You can reach a [facility] hospitalist on duty at [facility] 24 hours a day by calling [phone]. My cell # is [phone]. Pending Studies at Discharge: No Stand-Alone Forms: My [facility], Smoking Cessation Medications and DC Order Prescriptions: New Brilinta 90 mg Tablet 90 mg PO BID Qty: 30 RF: 3 metoprolol succinate 25 mg tablet extended release 24 hr 25 mg PO DAILY Qty: 15 RF: 3 isosorbide mononitrate 30 mg tablet extended release 24 hr 30 mg PO DAILY Qty: 15 RF: 3 Brilinta 90 mg tablet 90 mg PO BID Qty: 180 RF: 3 isosorbide mononitrate 30 mg tablet extended release 24 hr 30 mg PO DAILY Qty: 90 RF: 3 metoprolol succinate 25 mg tablet extended release 24 hr 25 mg PO DAILY Qty: 90 RF: 3 Continued rosuvastatin 20 mg Tablet 20 mg PO DAILY RF: 0 cholecalciferol (vitamin D3) 25 mcg (1,000 unit) Capsule 25 mcg PO DAILY RF: 0 latanoprost 0.005 % Drops 1 drp OPB HS RF: 0 aspirin 81 mg Tablet,Delayed Release (Dr/Ec) 81 mg PO DAILY RF: 0 furosemide 20 mg Tablet 20 mg PO 2XWK RF: 0 potassium citrate 10 mEq (1,080 mg) Tablet Extended Release 10 meq PO BID RF: 0 lisinopril 20 mg tablet 20 mg PO DAILY RF: 0 nitroglycerin 0.4 mg Tablet, Sublingual 0.4 mg sublingual .PRN/UD PRN (Reason: Chest Pain) RF: 0 Discontinued metoprolol tartrate 50 mg Tablet 50 mg PO QAM RF: 0 metoprolol tartrate 50 mg Tablet 25 mg PO QPM RF: 0 isosorbide mononitrate 60 mg Tablet Extended Release 24 Hr 120 mg PO DAILY RF: 0 omega 3-[id number]-wkv-fish oil [Fish Oil] 1,000 mg (120 mg-180 mg) Capsule 1 cap PO DAILY RF: 0 Discharge Orders: Discharge Order (Routine); Ordered 02/02/20 Ordered By: Pee Barbosa Admission Data Admit Date/Time: 01/30/20 20:14 Attending Provider: Pee Barbosa Admit Provider: Matt Jain Primary Care Provider: Brandon Hidalgo Other Providers: Tracey Zepeda ; Boris Archibald ; Maximilian Cooper ; Ciro Mcnamara ; Darwin Pedroza ; Kendell De La Torre ; Darian Leon ; Luis Eduardo Bolden ; Kirti Fernandez ; Kirti Lr ; Frank Alcantar ; Luis Eduardo Bustamante ; Antonio Aviles Other Interventions: Discharge Summary Assessment (RN) Last Done: 02/02/20 10:29
== END 2020-02-02 12:07 | disposition home or self-care (01) | DRG 247 ==
LOC: ED 17:57 → CC 18:13 → 1E 20:14 → SUATTDRO 20:14
DX: I11.0 Hypertensive heart disease with heart failure; D64.9 Anemia, unspecified; E87.6 Hypokalemia; R74.01 Elevation of levels of liver transaminase levels; I50.9 Heart failure, unspecified; T50.2X5A Adverse effect of carbonic-anhydrase inhibitors, benzothiadiazides and other diuretics, initial encounter; I44.2 Atrioventricular block, complete; W19.XXXA Unspecified fall, initial encounter; I21.11 ST elevation (STEMI) myocardial infarction involving right coronary artery; N17.9 Acute kidney failure, unspecified; T79.6XXA Traumatic ischemia of muscle, initial encounter; I25.2 Old myocardial infarction; Z95.818 Presence of other cardiac implants and grafts; S02.5XXA Fracture of tooth (traumatic), initial encounter for closed fracture; E78.5 Hyperlipidemia, unspecified; S80.11XA Contusion of right lower leg, initial encounter; E11.9 Type 2 diabetes mellitus without complications; S02.611A Fracture of condylar process of right mandible, initial encounter for closed fracture; Z79.82 Long term (current) use of aspirin; Z87.891 Personal history of nicotine dependence; I25.10 Atherosclerotic heart disease of native coronary artery without angina pectoris; S09.90XA Unspecified injury of head, initial encounter; I25.5 Ischemic cardiomyopathy; R00.1 Bradycardia, unspecified; S01.511A Laceration without foreign body of lip, initial encounter; Y92.018 Other place in single-family (private) house as the place of occurrence of the external cause

== ENCOUNTER 2021-03-15 08:28 | Inpatient (IN) ==
[2021-03-15] MEDS ORDERED: ONDANSETRON INJ 2 MG/ML 2 ML VIAL IV STA (08:33)
[2021-03-15] MEDS ORDERED: ONDANSETRON INJ 2 MG/ML 2 ML VIAL ONE (08:35)
--- NOTE | 2021-03-15 08:40 | Emergency Department Note ---
History of Present Illness General Chief complaint: Cardiac Assessment Stated complaint: CARDIAC SX, Time Seen by Provider: 03/15/21 08:32 Source: patient and EMS History of Present Illness Provider complaint: Nausea Onset (ago): hour(s) (2.5) Associated symptoms: + diaphoresis, + fever/chills and + nausea/vomiting; no chest pain, no cough, no headaches or no shortness of breath 76-year-old male presents emergency department for lightheadedness and nausea. Patient states he woke up at 6 AM and felt like he had to go have a bowel movement and then started feeling nausea and lightheadedness. Patient reports he became very cold and started having a lot of sweating. He denies any chest pain or difficulty breathing but states he had similar symptoms when he had a heart attack so he became concerned and called 911. EMS reports that when they arrived the patient did appear diaphoretic. He was not reporting chest pain. Home Medications Medication Instructions Recorded Confirmed Type latanoprost 0.005 % eye drops 1 drp OPB HS 01/30/20 03/15/21 History nitroglycerin 0.4 mg sublingual 0.4 mg SUBLINGUAL .PRN/UD PRN 01/30/20 03/15/21 History tablet rosuvastatin 20 mg tablet 20 mg PO HS 01/30/20 03/15/21 History ticagrelor 90 mg tablet (Brilinta) 90 mg PO BID #30 tab 02/02/20 03/15/21 Rx aspirin 81 mg chewable tablet 81 mg PO HS 03/11/20 03/15/21 History famotidine 20 mg tablet 20 mg PO HS 03/11/20 03/15/21 History brimonidine 0.025 % eye drops 1 drp OPHTHALMIC (EYE) BID 03/15/21 03/15/21 History lisinopril 5 mg tablet 5 mg PO HS 03/15/21 03/15/21 History metoprolol succinate 25 mg 25 mg PO HS 03/15/21 03/15/21 History tablet,extended release 24 hr Allergies Allergy/AdvReac Type Severity Reaction Status Date / Time simvastatin AdvReac Intermediate myalgia Verified 03/15/21 09:09 Past Med/Surg History Medical History Acute kidney injury CAD (coronary atherosclerotic disease) Hyperlipidemia Hypertension Laceration of oral cavity with foreign body Social History Smoking Status: Former smoker Hx Alcohol Use: Yes Alcohol type: beer Hx Substance Use: No Preferred Language: Ukrainian Communication Ability: Effective Product Marketing Director Required: No Beliefs That Will Affect Care: None Current Living Situation: Alone Feels Safe at Home: Yes Assistive Devices: Glasses Review of Systems A total of 10 systems reviewed and were otherwise negative Physical Exam Vital Signs Vital Signs - 24 hr 03/15/21 08:42 03/15/21 08:50 03/15/21 09:06 Temperature 36.5 C Temperature Source Oral Pulse Rate 59 L 59 L Pulse Rate [Apical] 58 L Pulse Rhythm Regular Regular Pulse Rhythm [Apical] Regular Pulse Strength Normal Pulse Strength [Apical] Normal Respiratory Rate 20 20 20 Respiratory Effort / Characteristics Non-Labored Spontaneous Non-Labored Spontaneous Respiratory Depth Normal Normal Respiratory Pattern Regular Regular Blood Pressure 171/76 H Blood Pressure [Right Arm] 138/65 Blood Pressure Mean 107 Blood Pressure Mean [Right Arm] 89 Blood Pressure Position Lying Blood Pressure Position [Right Arm] Sitting Pulse Oximetry 94 94 95 Oxygen Delivery Method Room Air Room Air Room Air Oxygen Flow Rate Sepsis Recent Fever Within 48 Hours No Sepsis New/Unexplained Change in Mental Status No Sepsis Action Taken by Nursing No Action Required 03/15/21 09:25 03/15/21 09:36 03/15/21 10:00 Temperature Temperature Source Pulse Rate Pulse Rate [Apical] 57 L Pulse Rhythm Pulse Rhythm [Apical] Regular Pulse Strength Pulse Strength [Apical] Normal Respiratory Rate 18 Respiratory Effort / Characteristics Non-Labored Respiratory Depth Normal Respiratory Pattern Regular Blood Pressure Blood Pressure [Right Arm] 126/68 Blood Pressure Mean Blood Pressure Mean [Right Arm] 87 Blood Pressure Position Blood Pressure Position [Right Arm] Lying Pulse Oximetry 87 L 97 97 Oxygen Delivery Method Room Air Nasal Cannula Room Air Oxygen Flow Rate 2 Sepsis Recent Fever Within 48 Hours Sepsis New/Unexplained Change in Mental Status Sepsis Action Taken by Nursing Physical Exam GENERAL: He is oriented to person, place, and time. He appears well-developed and well-nourished. He does not appear distressed. HENT: Exam performed. - Head: Normocephalic and atraumatic. - Right Ear: External ear normal. No mastoid tenderness. - Left Ear: External ear normal. No mastoid tenderness. - Mouth/Throat: The oropharynx is clear and moist. No trismus in the jaw. No dental abscesses or uvula swelling. No oropharyngeal exudate or tonsillar abscesses. EYES: Conjunctivae and EOM are normal. Pupils are equal, round, and reactive to light. Right eye exhibits no discharge. Left eye exhibits no discharge. No scleral icterus. NECK: Normal range of motion. Neck supple. No JVD present. No spinous process tenderness present. No carotid bruit present. No rigidity. No tracheal deviation and normal range of motion present. No Brudzinski's sign and no Kernig's sign n oted. CV: Bradycardic rate, regular rhythm, normal heart sounds and intact distal pulses. There is no peripheral edema. Palpable radial pulses bue. PULM/CHEST: Effort normal and breath sounds normal. No respiratory distress. No stridor. He has no wheezes. He has no rales. - Chest Wall: He exhibits no tenderness. Previous CABG scar on the chest. ABD: The abdomen is soft. Bowel sounds are normal. He has no distension. No mass is present. There is no tenderness. There is no rebound, no guarding, no Ceballos's sign and no tenderness at McBurney's point. Rovsig negative. MUSC/SKEL: Normal range of motion. There is no peripheral edema, tenderness or deformity. LYMPH: No cervical adenopathy. NEURO: He is alert and oriented to person, place, and time. He has normal strength. No cranial nerve deficit or sensory deficit. Coordination and gait normal. GCS eye subscore is 4. GCS verbal subscore is 5. GCS motor subscore is 6. Cerebellar tests wnl. SKIN: Skin is warm and dry. He is not diaphoretic. PSYCH: He has a normal mood and affect. Behavior is normal. Judgment and thought content normal. Course Course 0832: The patient was evaluated in room B1. A complete history and physical exam was performed Cardiac monitoring: An order was placed for continuous cardiac monitoring. The monitor shows a rate of 50 with sinus rhythm 0945: Patient became hypoxic on room air down to 87%. Supplemental oxygen was applied to the patient which improved his oxygen saturation. Chest x-ray does show cardiomegaly with pulmonary vascular congestion. Thought that the patient is suffering from a CHF exacerbation. Patient denies any active chest pain at this time. He states that to be oxygen is in place not having difficulty breathing. Patient reports his nausea got better after receiving Zofran. Patient will be admitted to the [facility] hospitalist team. Lasix 40 mg IV push ordered for the patient. Administered Medications Discontinued Medications Furosemide (Furosemide 40 Mg/4 Ml Vial) 40 mg IV ONE ONE Stop: 03/15/21 09:44 Last Admin: 03/15/21 09:52 Dose: 40 mg Documented by: [id number] Sodium Chloride (Nss) 500 mls @ 125 mls/hr IV .Q4H JAVIER Stop: 04/14/21 08:44 Last Infusion: 03/15/21 09:46 Dose: 125 mls/hr Documented by: [id number] Admin: 03/15/21 08:42 Dose: 125 mls/hr Documented by: [id number] Ondansetron HCl (Ondansetron Inj 2 Mg/Ml 2 Ml Vial) 4 mg IV NOW STA Stop: 03/15/21 08:34 Last Admin: 03/15/21 08:42 Dose: Not Given Documented by: [id number] Ondansetron HCl (Ondansetron Inj 2 Mg/Ml 2 Ml Vial) Confirm Administered Dose 4 mg .ROUTE .STK-MED ONE Stop: 03/15/21 08:36 Last Admin: 03/15/21 08:42 Dose: 4 mg Documented by: [id number] Critical Care Time Critical Care Time: Yes Total Critical Care Time: 46 I have personally spent greater than 46 minutes of critical care time in the dir ect management of this patient. This includes bedside care, interpretation of diagnostic studies, and testing, discussion with consultants, patient, and family members, and other required patient management activities. This 46 minutes is in excess of all separately billable procedures. Medical Decision Making Laboratory Data Result diagrams: 03/15/21 08:38 03/15/21 08:38 Lab Results 03/15/21 03/15/21 03/15/21 Range/Units 08:38 08:38 08:38 WBC 7.41 (4.8-10.8) K/uL RBC 4.60 L (4.7-6.1) M/uL Hgb 14.4 (14.0-18.0) g/dL Hct 42.8 (42-52) % MCV 93.0 (80-100) fL MCH 31.3 (25-34) pg MCHC 33.6 (32-36) g/dL RDW Std Deviation 50.6 H (36.4-46.3) fL RDW Coeff of [place] 14.9 H (11.5-14.5) % Plt Count 198 (130-400) K/uL MPV 9.6 (7.4-10.4) fL Immature Gran % (Auto) 0.1 % Neut % (Auto) 70.0 % Lymph % (Auto) 18.1 % [place] % (Auto) 9.0 % Eos % (Auto) 2.4 % Baso % (Auto) 0.4 % Neut # (Auto) 5.18 (1.4-6.5) K/uL Lymph # (Auto) 1.34 (1.2-3.4) K/uL [place] # (Auto) 0.67 H (0.11-0.59) K/uL Eos # (Auto) 0.18 (0-0.5) K/uL Baso # (Auto) 0.03 (0-0.2) K/uL Immature Gran # (Auto) 0.01 (0.00-0.02) K/uL PT 10.0 (9.0-12.0) Seconds INR 1.0 (0.9-1.1) APTT 27.6 (21.0-31.0) Seconds PTT Ratio 1.0 Sodium 138 (136-145) mmol/L Potassium 4.0 (3.5-5.1) mmol/L Chloride 108 H (98-107) mmol/L Carbon Dioxide 25 (21-32) mmol/L Anion Gap 5 (3-11) BUN 23 (6-23) mg/dl Creatinine 0.87 (0.6-1.4) mg/dl Est Cr Clr Drug Dosing 87.2 ml/min Est GFR ( Amer) 95.8 ml/min Est GFR (Non-Af Amer) 82.7 ml/min BUN/Creatinine Ratio 26.4 H (10-20) Glucose 133 H (70-99(Fasting)) mg/dl Calcium 8.8 (8.5-10.1) mg/dl Total Bilirubin 0.5 (0.2-1.0) mg/dl Direct Bilirubin 0.1 (0-0.2) mg/dl AST 16 (13-39) U/L ALT 17 (7-52) U/L Alkaline Phosphatase 39 (34-104) U/L Troponin I < 0.03 (0-0.04) ng/ml Total Protein 6.8 (6.0-8.3) gm/dl Albumin 4.0 (3.4-5.0) gm/dl Lipase (11-82) U/L SARS-CoV-2, RNA, NAAT (NEGATIVE) 03/15/21 03/15/21 Range/Units 08:38 09:55 WBC (4.8-10.8) K/uL RBC (4.7-6.1) M/uL Hgb (14.0-18.0) g/dL Hct (42-52) % MCV (80-100) fL MCH (25-34) pg MCHC (32-36) g/dL RDW Std Deviation (36.4-46.3) fL RDW Coeff of [place] (11.5-14.5) % Plt Count (130-400) K/uL MPV (7.4-10.4) fL Immature Gran % (Auto) % Neut % (Auto) % Lymph % (Auto) % [place] % (Auto) % Eos % (Auto) % Baso % (Auto) % Neut # (Auto) (1.4-6.5) K/uL Lymph # (Auto) (1.2-3.4) K/uL [place] # (Auto) (0.11-0.59) K/uL Eos # (Auto) (0-0.5) K/uL Baso # (Auto) (0-0.2) K/uL Immature Gran # (Auto) (0.00-0.02) K/uL PT (9.0-12.0) Seconds INR (0.9-1.1) APTT (21.0-31.0) Seconds PTT Ratio Sodium (136-145) mmol/L Potassium (3.5-5.1) mmol/L Chloride (98-107) mmol/L Carbon Dioxide (21-32) mmol/L Anion Gap (3-11) BUN (6-23) mg/dl Creatinine (0.6-1.4) mg/dl Est Cr Clr Drug Dosing ml/min Est GFR ( Amer) ml/min Est GFR (Non-Af Amer) ml/min BUN/Creatinine Ratio (10-20) Glucose (70-99(Fasting)) mg/dl Calcium (8.5-10.1) mg/dl Total Bilirubin (0.2-1.0) mg/dl Direct Bilirubin (0-0.2) mg/dl AST (13-39) U/L ALT (7-52) U/L Alkaline Phosphatase (34-104) U/L Troponin I (0-0.04) ng/ml Total Protein (6.0-8.3) gm/dl Albumin (3.4-5.0) gm/dl Lipase 24 (11-82) U/L SARS-CoV-2, RNA, NAAT NEGATIVE (NEGATIVE) Imaging Data Radiologist's Impression: Chest X-Ray 03/15/21 08:33 XR chest 1V portable HISTORY: 76 years-old Male cp acute atypical chest pain COMPARISON: Chest radiograph 03/11/2020 TECHNIQUE: Portable AP view of the chest FINDINGS: Cardiac silhouette is enlarged. Prior median sternotomy. No pneumothorax, pleural effusion or overt pulmonary edema. Mild pulmonary vascular congestion with chronic interstitial coarsening of the lung bases. Degenerative changes of the shoulders and spine. IMPRESSION: Cardiomegaly with pulmonary vascular congestion. ACT 112: Negative or not required by law. The above report was generated using voice recognition software. It may contain grammatical, syntax or spelling errors. Electronically signed by: Al Mayo M.D. 03/15/2021 9:31 AM ECG Data Indication: + nausea Rate (beats per minute): 49 Rhythm: + sinus bradycardia ECG Intervals/blocks: + First degree AV block, + Normal QRS and + Normal QT-c ECG ST segments: + Normal ST segments MDM Narrative Patient became hypoxic on room air down to 87%. Supplemental oxygen was applied to the patient which improved his oxygen saturation. Chest x-ray does show ca rdiomegaly with pulmonary vascular congestion. Thought that the patient is suffering from a CHF exacerbation. Patient denies any active chest pain at this time. He states that to be oxygen is in place not having difficulty breathing. Patient reports his nausea got better after receiving Zofran. Patient will be admitted to the [facility]ist team. Lasix 40 mg IV push ordered for the patient. Impression & Plan Hypoxia, CHF exacerbation Discharge Plan Visit Data Chief Complaint: Cardiac Assessment Stated Complaint: CARDIAC SX, ED Provider: Romain Sales Discharge Problem: Hypoxia, CHF exacerbation Patient Disposition: Admitted As Inpatient Forms Stand Alone Forms: [facility] Prescriptions Prescriptions: No Action famotidine 20 mg Tablet 20 mg PO HS RF: 0 aspirin 81 mg Tablet,Chewable 81 mg PO HS RF: 0 rosuvastatin 20 mg Tablet 20 mg PO HS RF: 0 latanoprost 0.005 % Drops 1 drp OPB HS RF: 0 nitroglycerin 0.4 mg Tablet, Sublingual 0.4 mg sublingual .PRN/UD PRN (Reason: Chest Pain) RF: 0 Brilinta 90 mg Tablet 90 mg PO BID Qty: 30 RF: 3 lisinopril 5 mg Tablet 5 mg PO HS RF: 0 brimonidine 0.025 % Drops 1 drp OPHTHALMIC (EYE) BID RF: 0 metoprolol succinate 25 mg tablet extended release 24 hr 25 mg PO HS RF: 0 Referrals Referrals: Brandon Hidalgo DO [Primary Care Provider] - Discharge Problem: CHF exacerbation Qualifiers: Heart failure type: unspecified Qualified Code(s): I50.9 - Heart failure, unspecified
[2021-03-15] MEDS ORDERED: SODIUM CHLORIDE 0.9% 500 ML IV SCH (08:45)
[2021-03-15 08:50] LABS: Basophils # (auto) 0.03 K/uL (0-0.2); Basophils % (auto) 0.4 %; Eosinophils # (auto) 0.18 K/uL (0-0.5); Eosinophils % (auto) 2.4 %; Hematocrit (blood only) 42.8 % (42-52); Hemoglobin 14.4 g/dL (14.0-18.0); Immature Granulocytes # (auto) 0.01 K/uL (0.00-0.02); Immature Granulocytes % (auto) 0.1 %; Lymphocytes # (auto) 1.34 K/uL (1.2-3.4); Lymphocytes % (auto) 18.1 %; Mean Corpuscular Hemoglobin 31.3 pg (25-34); Mean Corpuscular Hgb Conc 33.6 g/dL (32-36); Mean Platelet Volume 9.6 fL (7.4-10.4); Monocytes # (auto) 0.67 K/uL (0.11-0.59); Neutrophils # (auto) 5.18 K/uL (1.4-6.5); Platelet Count 198 K/uL (130-400); RDW Coefficient of Variation 14.9 % (11.5-14.5); RDW Standard Deviation 50.6 fL (36.4-46.3); White Blood Count 7.41 K/uL (4.8-10.8)
[2021-03-15 09:18] LABS: Alanine Aminotransferase 17 U/L (7-52); Alkaline Phosphatase 39 U/L (34-104); Anion Gap 5 (3-11); Aspartate Aminotransferase 16 U/L (13-39); BUN Creatinine Ratio 26.4 (10-20); Bilirubin Direct 0.1 mg/dl (0-0.2); Bilirubin,Total 0.5 mg/dl (0.2-1.0); Blood Urea Nitrogen 23 mg/dl (6-23); Calcium 8.8 mg/dl (8.5-10.1); Carbon Dioxide 25 mmol/L (21-32); Chloride 108 mmol/L (98-107); Creatinine Clr Calc Pharmacy 87.2 ml/min; Est GFR (African American) 95.8 ml/min; Est GFR (Non-African American) 82.7 ml/min; Glucose 133 mg/dl (70-99(Fasting)); Sodium 138 mmol/L (136-145); Total Protein 6.8 gm/dl (6.0-8.3)
[2021-03-15 09:19] LABS: Troponin I < 0.03 ng/ml (0-0.04)
[2021-03-15 09:30] LABS: Partial Thromboplastin Time 27.6 Seconds (21.0-31.0)
--- NOTE | 2021-03-15 09:32 | XRay Report ---
XR chest 1V portable HISTORY: 76 years-old Male cp acute atypical chest pain COMPARISON: Chest radiograph 03/11/2020 TECHNIQUE: Portable AP view of the chest FINDINGS: Cardiac silhouette is enlarged. Prior median sternotomy. No pneumothorax, pleural effusion or overt p ulmonary edema. Mild pulmonary vascular congestion with chronic interstitial coarsening of the lung b ases. Degenerative changes of the shoulders and spine. IMPRESSION: Cardiomegaly with pulmonary vascular congestion. ACT 112: Negative or not required by law. The above report was generated using voice recognition software. It may contain grammatical, syntax o r spelling errors. Electronically signed by: Al Mayo M.D. 03/15/2021 9:31 AM
[2021-03-15] MEDS ORDERED: FUROSEMIDE 40 MG/4 ML VIAL IV ONE (09:43)
[2021-03-15] MEDS ORDERED: NITROGLYCERIN SL 0.4 MG/TAB TAB SL PRN (10:39)
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
[2021-03-15] MEDS ORDERED: MECLIZINE 12.5 MG TAB PO STA (11:24)
[2021-03-15] MEDS: TICAGRELOR 90 MG TAB PO SCH ×2 (11:40→20:47)
[2021-03-15 11:51] LABS: Appearance Urine Clear (Clear); Bilirubin Urine Negative (Negative); Blood Urine Negative (Negative); Color Urine Yellow; Glucose Urine UA Negative (Negative); Ketones Urine Negative (Negative); Leukocyte Esterase Urine Negative (Negative); Nitrite Urine Negative (Negative); Protein Urine Negative (Negative); Specific Gravity Urine 1.008 (1.000-1.030); Urobilinogen Urine Negative (Negative); pH Urine 6.5 (4.5-7.5)
[2021-03-15] MEDS: COMBIGAN~ORDER AWAITING ACTION SCH ×3 (12:28→23:42)
[2021-03-15] MEDS ORDERED: ONDANSETRON INJ 2 MG/ML 2 ML VIAL IV PRN (13:47)
--- NOTE | 2021-03-15 14:10 | Electrocardiogram Report ---
Test Reason : Blood Pressure : / mmHG Vent. Rate : 049 BPM Atrial Rate : 049 BPM P-R Int : 226 ms QRS Dur : 110 ms QT Int : 478 ms P-R-T Axes : 015 026 125 degrees QTc Int : 431 ms Sinus bradycardia with 1st degree A-V block with Premature atrial complexes Inferior infarct (cited on or before 24-JUN-2006) Possible Anterior infarct (cited on or before 30-JAN-2020) T wave abnormality, consider lateral ischemia Abnormal ECG When compared with ECG of 11-MAR-2020 06:33, Significant changes have occurred Confirmed by Jeancarlos Pereyra ([id number]) on 03/15/2021 2:10:23 PM Referred By: Darwin Pedroza Confirmed By:Jeancarlos Pereyra
--- NOTE | 2021-03-15 14:24 | CT Scan Report ---
CT SCAN OF THE BRAIN WITHOUT IV CONTRAST CLINICAL HISTORY: Dizziness. COMPARISON STUDY: CT of the brain dated 03/11/2020. TECHNIQUE: Unenhanced axial CT scan of the brain is performed from the vertex to the skull base. A do se lowering technique was utilized adhering to the principles of ALARA. CT DOSE: 614.27 mGy.cm FINDINGS: Brain parenchyma: There are age-related involutional changes noting mild subcortical and periventric ular microangiopathic change. There is no hemorrhage, mass effect, or evidence of acute territorial i schemia by CT criteria. Kan-white matter differentiation is preserved. No extra-axial fluid collecti on is seen. Ventricles, sulci, cisterns: Prominent secondary to involutional change. Intracranial vasculature: There is atherosclerotic calcification of the cavernous carotid and vertebr al arteries. Calvarium: Unremarkable. Sinuses and mastoids: The visualized paranasal sinuses are clear. The mastoid air cells are well pneu matized. Orbits: The bony orbits are grossly intact. Soft tissues: A small metallic foreign body is seen in the left frontal scalp. IMPRESSION: 1. There is no hemorrhage, mass effect, or evidence of acute territorial ischemia by CT criteria. 2. A small metallic foreign body is seen in the left frontal scalp. ACT 112: Negative or not required by law. Electronically signed by: Diego Boo M.D. 03/15/2021 2:23 PM
[2021-03-15] MEDS: ROSUVASTATIN CALCIUM 20 MG TAB PO SCH (20:13)
[2021-03-15] MEDS: METOPROLOL SUCC 25MG EXT REL TAB PO SCH (20:13)
[2021-03-15] MEDS: lisinopril 5 MG TAB PO SCH (20:13)
[2021-03-15] MEDS: FAMOTIDINE 20 MG TAB PO SCH (20:14)
[2021-03-15] MEDS: HEPARIN SOD 5,000 UNIT/0.5 ML VIAL SQ SCH (20:14)
[2021-03-15] MEDS: ASPIRIN 81 MG ECTAB PO SCH (20:14)
[2021-03-16] MEDS: COMBIGAN~ORDER AWAITING ACTION SCH ×2 (07:22→15:27)
[2021-03-16] MEDS: HEPARIN SOD 5,000 UNIT/0.5 ML VIAL SQ SCH ×2 (08:41→20:49)
[2021-03-16] MEDS: TICAGRELOR 90 MG TAB PO SCH ×2 (08:41→20:49)
[2021-03-16 08:45] LABS: Hematocrit (blood only) 41.7 % (42-52); Hemoglobin 13.9 g/dL (14.0-18.0); Mean Corpuscular Hgb Conc 33.3 g/dL (32-36); Mean Corpuscular Volume 92.9 fL (80-100); Mean Platelet Volume 9.3 fL (7.4-10.4); Platelet Count 187 K/uL (130-400); RDW Coefficient of Variation 14.8 % (11.5-14.5); RDW Standard Deviation 50.4 fL (36.4-46.3); Red Blood Count 4.49 M/uL (4.7-6.1); White Blood Count 8.29 K/uL (4.8-10.8)
[2021-03-16] MEDS ORDERED: FUROSEMIDE 40 MG/4 ML VIAL IV SCH (09:00)
[2021-03-16 09:02] LABS: BUN Creatinine Ratio 22.7 (10-20); Calcium 8.4 mg/dl (8.5-10.1); Creatinine Clr Calc Pharmacy 76.7 ml/min; Est GFR (African American) 86.3 ml/min; Est GFR (Non-African American) 74.5 ml/min; Magnesium 1.8 mg/dl (1.7-2.4); Phosphorus 3.4 mg/dl (2.5-4.9); Potassium 3.9 mmol/L (3.5-5.1)
[2021-03-16 09:03] LABS: BUN Creatinine Ratio 23.2 (10-20); Calcium 8.4 mg/dl (8.5-10.1); Creatinine Clr Calc Pharmacy 78.4 ml/min; Est GFR (African American) 88.5 ml/min; Est GFR (Non-African American) 76.4 ml/min; Potassium 3.9 mmol/L (3.5-5.1)
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
--- NOTE | 2021-03-16 10:13 | Electrocardiogram Report ---
Test Reason : Blood Pressure : / mmHG Vent. Rate : 053 BPM Atrial Rate : 053 BPM P-R Int : 212 ms QRS Dur : 128 ms QT Int : 462 ms P-R-T Axes : 132 168 061 degrees QTc Int : 433 ms Suspect arm lead reversal, interpretation assumes no reversal Unusual P axis, possible ectopic atrial bradycardia Non-specific intra-ventricular conduction block Old Inferior infarct (cited on or before 24-JUN-2006) Old Anterolateral infarct (cited on or before 30-JAN-2020) Abnormal ECG When compared with ECG of 15-MAR-2021 08:33, Limb lead reversal now present Otherwise no significant change Confirmed by Jason Cosme ([id number]) on 03/16/2021 10:12:51 AM Referred By: Darwin Pedroza Confirmed By:Jason Cosme
--- NOTE | 2021-03-16 12:11 | Hospitalist Progress Note ---
Date of Service March 16, 2021 Assessment & Plan (1) Acute on chronic heart failure with preserved ejection fraction: Plan: Per Dr. King's notes with addendum: #. Acute on chronic heart failure with preserved ejection fraction. #. Acute failure with hypoxia #. Extensive history of cardiovascular diseases Patient presented with feeling dizzy/clammy/sweaty/nauseous after waking up on the day of arrival. Admitting troponin negative, patient denies any chest pain, admitting CXR positive for cardiomegaly with pulmonary vascular congestion. History of [place] x2 2008 and 2019 status post CABG x2021 and multiple stents. January 2020:: Ejection fraction 45 to 50%, grade 1 diastolic dysfunction, severe concentric LVH She is requiring 2 L oxygen to maintain saturation in the ED, was on 1 L at bedside exam, patient not on any oxygen at home. Likely transient and expect to improve with diuresis. Patient received a dose of IV Lasix in the ED, will continue with IV Lasix daily, cardiology consult, trend troponins given history of extensive cardiac disease. Echo. EKG tomorrow a.m. Telemetry monitoring. 03/16/2021 On room air Lightheadedness improving On Lasix 40 mg IV Echocardiogram: EF 50 to 55% Agriculture Engineer consulted Check orthostatic vital signs Monitor in telemetry for arrhythmias May need outpatient Zio patch #. Other chronic medical conditions: HTN, HLD, CAD, history of stroke Blood pressure stable Continue lisinopril, metoprolol, Brilinta, aspirin, Crestor DVT prophylaxis: Heparin subcu Full code Disposition Pending Discharge to home when medically stable, cleared by cardiology service plan of care discussed with patient in detail and at length all questions answered He is understanding, agreeable, comfortable with the plan of care Admission and Anticipated Discharge Date Admission Date: March 15, 2021 Subjective Follow-up for lightheadedness, etc. Seen resting in bed, comfortable, not in distress States he feels improved compared to yesterday Still has some lightheadedness when standing up but much improved No nausea, chest pain, shortness of breath, palpitations Denies any other symptoms Review of Systems Review of Systems: all noted and negative except for above Physical Exam Physical Exam: General- oriented x 3, not in distress, speaks in sentences with no effort or accessory muscle use Head- atraumatic Eyes- PERRL, EOMI, anicteric ENT- oropharynx clear Neck- supple, no JVD, no adenopathy, no thyromegaly; carotids +2/2, no bruits appreciated Lungs- clear to auscultation bilaterally, no rales/wheezes Heart- normal rate, regular rhythm; no murmur, no gallop, no rub appreciated Abdomen- normal bowel sounds, nondistended, soft, nontender, no masses or hepatosplenomegaly Extremities- no pretibial edema, no calf tenderness; peripheral pulses intact Neuro- alert, oriented x 3; CN 2-12 grossly intact; motor 5/5 bilaterally;sensation 100% on all extremities; no other gross focal neurologic deficits Skin- warm & dry Results & Data Results & Data ([facility]) Vital Signs (Past 12 Hours) Vital Signs Temp Pulse Pulse Resp BP Pulse Ox 03/16/21 11:17 36.7 C 53 L 20 114/68 95 03/16/21 07:44 36.4 C L 48 L 19 130/70 95 03/16/21 07:33 51 L 03/16/21 03:38 36.8 C 58 L 20 122/72 95 all noted and reviewed including below
[2021-03-16] MEDS ORDERED: POLYETHYLENE (MIRALAX) 17 GM PACK PO PRN (19:50)
[2021-03-16] MEDS: METOPROLOL SUCC 25MG EXT REL TAB PO SCH (20:48)
[2021-03-16] MEDS: lisinopril 5 MG TAB PO SCH (20:49)
[2021-03-16] MEDS: FAMOTIDINE 20 MG TAB PO SCH (20:49)
[2021-03-16] MEDS: ASPIRIN 81 MG ECTAB PO SCH (20:49)
[2021-03-16] MEDS: ROSUVASTATIN CALCIUM 20 MG TAB PO SCH (20:50)
[2021-03-17] MEDS: COMBIGAN~ORDER AWAITING ACTION SCH ×3 (00:56→15:54)
[2021-03-17 07:37] LABS: BUN Creatinine Ratio 28.1 (10-20); Calcium 8.5 mg/dl (8.5-10.1); Creatinine Clr Calc Pharmacy 83.9 ml/min; Est GFR (African American) 94.9 ml/min; Est GFR (Non-African American) 81.9 ml/min
[2021-03-17] MEDS: HEPARIN SOD 5,000 UNIT/0.5 ML VIAL SQ SCH (07:49)
[2021-03-17] MEDS: TICAGRELOR 90 MG TAB PO SCH (07:49)
[2021-03-17] MEDS ORDERED: OPTIRAY 320 125ml IV ONE (12:46)
--- NOTE | 2021-03-17 13:10 | Progress Notes ---
DATE OF SERVICE: 03/17/2021. REASON FOR CONSULTATION: Dizziness. HISTORY OF PRESENT ILLNESS: The patient is a 76-year-old right-handed male with a history of what I assumed to be a right MCA stroke, coronary artery disease, hypertension and hyperlipidemia. On this background, the patient has recently been well. Yesterday morning, he awakened and rolled to his lef t to sit up out of bed, he felt immediately clammy, mildly nauseated. He was not lightheaded. There was no visual bending or hearing muffling but he nonspecifically felt "dizzy." He reports this as a sense of imbalance. He denies that he was veering unilaterally, although felt off balance with walk ing. The symptoms persisted for about 15-20 minutes. There was no chest pain, palpitation or shortn ess of breath. There was no double vision, slurred speech, facial numbness, facial droop, unilateral weakness or numbness. There was no difficulty with swallowing. The patient reports that he had a v [place] brief, but similar symptoms last evening when he was in his hospital room. He rolled in bed to t he left and briefly felt nauseated, clammy and vertiginous. No otologic symptoms have been noted. No headache has been noted. He has no prior history of the [facility]. It sounds as if his brother has positional vertigo. He has recently been well. None of his medicines are new or changed in dose. He has been eating and drinking adequately. Has not had any head or neck trauma, chiropractic manipulation of the neck or m edical or dental procedures. There was no alteration of consciousness. There is no family history o f stroke. The patient had a CT of the head, noncontrast, which showed evidence of intracranial ather osclerosis, but otherwise did not show any large vessel cerebral infarctions. One year ago when the p atvi had his aforementioned stroke, his head CT was also unremarkable other than showing white berto er hypodensity suggestive of small vessel cerebrovascular disease and a CTA of the head and neck show ed atherosclerotic plaque within the proximal bilateral internal carotid arteries without significant stenosis. Moderate to severe stenosis of the proximal bilateral vertebral arteries and abrupt occlu adriana of the sylvian branch of the right middle cerebral artery and moderate atherosclerotic plaques w ithin the intracranial vessels with moderate multifocal stenosis. That study has not been repeated. The patient's lab work was notable for a normal CBC, PT, PTT. BUN/creatinine ratio was 23/0.87. No nfasting glucose 133, calcium 8.8. Transaminases normal. BNP only marginally elevated at 110. Urin alysis negative. Pulse has ranged from a low of 44. When the air purifier servicer arrived, the patient was reported as clammy and bradycardic. The patient's electrocard iogram on admission was notable for sinus bradycardia with first-degree AV block and PACs, inferior i nfarct old, possible anterior infarct old. T-wave abnormality, consider lateral ischemia. Compared t o an EKG of 03/11/2020 significant changes have occurred. The patient's echocardiogram was technical ly limited. LV ejection fraction normal 50-55%. Left atrium not well visualized. Right atrium not well visualized. Cardiology consultation assessment was chronic heart failure with a normal ejection fraction. Dr. Leon did not believe the patient was to be in heart failure and then IV Lasix could be discontinued. The BNP being 02/18/2021, argued against the diagnosis of acute diastolic heart estuardo lure. Cardiac troponins were negative. The patient is unable to have an MRI due to shrapnel in the soft tissues of the face. PAST MEDICAL HISTORY: Acute kidney injury, coronary artery disease, hyperlipidemia, hypertension, la ceration of the oral cavity with foreign body. The patient had the aforementioned stroke several day s after coronary artery bypass surgery. SOCIAL HISTORY: Former smoker, drinks beer. HOME MEDICATIONS: Were aspirin, Brimonidine eyedrops, famotidine, Latanoprost, lisinopril, metoprolol , nitroglycerin, rosuvastatin and Brilinta. ALLERGIES: SIMVASTATIN, WHICH CAUSED MYALGIAS. FAMILY HISTORY: No family history of stroke. PHYSICAL EXAMINATION: GENERAL: By report, the patient has not been orthostatic by blood pressure testing. The patient is awake and alert. His speech and language are normal and his affect is appropriate. VITAL SIGNS: Blood pressure 116/71, 44, 20, 36.6, 97% on room air. Patient is an excellent historia n and is awake and alert. NECK: There are no carotid or vertebral bruits. CARDIOVASCULAR: No heart murmurs are appreciable. Heart is regular rate and rhythm. NEUROLOGIC: Gross hearing is mildly diminished in the left ear. Provocative head maneuvers are nega tive. Pupils are equal. Optic nerves are unremarkable. Motility normal without nystagmus. Normal facial sensation and facial symmetry. Speech is nondysarthric. Tongue is midline. Motor is 5/5, no drift. Normal rapid alternating movements. Symmetric reflexes, downgoing toes. Tktctk-lg-qale and fvxu-ig-dxfw are normal. There is no dysdiadochokinesia. Reflexes symmetric. Toes downgoing. Sen sation intact to light touch in the upper and lowers. Gait is unremarkable for age. Tandem is unrem arkable for age. Romberg is negative. IMPRESSION AND PLAN: This patient gives a vaguely described history of instability, mild nausea and diaphoresis. The differential is broad, but he does note that he rolled in bed to the left when this episode came on and had a very similar, but very brief episode while hospitalized. This suggests a benign positional vertigo due to the aforementioned and the absence of other neurologic symptoms. This patient certainly has vascular risk factors and intracranial and extracranial stenosis. Recomme nd a CTA of the head and neck to exclude for instance a progressive vertebral stenosis or occlusion o r basilar stenosis or occlusion. I doubt that these are the case. In the absence of any progressive or basilar occlusion, I would continue his ongoing risk factor modification, Brilinta and aspirin. H is lipids should be assessed and goal LDL would be 70 or less. It is also possible that he is sympto matic for bradycardia. He likely needs a monitor and storage bin tender upon discharge. Orthostasis is a possibility, although he has not been proven to be orthostatic and the initial episo de was initially provoked by turning his head to the left. Once that CTA of the head and neck are pe rformed, I have no objection to him being discharged on the same antiplatelet therapy. If there is w orsening atherosclerosis in the intracranial or extracranial circulation. Please refer him back to julianna lorenzo or if he continues to have episodes. Job ID: [id number]
--- NOTE | 2021-03-17 13:57 | Hospitalist Progress Note ---
Date of Service March 17, 2021 Assessment & Plan (1) Acute on chronic heart failure with preserved ejection fraction: Plan: Per Dr. King's notes with addendum: Episode of lightheadedness, diaphoresis Patient presented with feeling dizzy/clammy/sweaty/nauseous after waking up on the day of arrival. Admitting troponin negative, patient denies any chest pain, admitting CXR positive for cardiomegaly with pulmonary vascular congestion. History of PR x2 2008 and 2019 status post CABG x2021 and multiple stents. January 2020:: Ejection fraction 45 to 50%, grade 1 diastolic dysfunction, severe concentric LVH She is requiring 2 L oxygen to maintain saturation in the ED, was on 1 L at bedside exam, patient not on any oxygen at home. Likely transient and expect to improve with diuresis. Patient received a dose of IV Lasix in the ED, will continue with IV Lasix daily, cardiology consult, trend troponins given history of extensive cardiac disease. Echo. EKG tomorrow a.m. Telemetry monitoring. 03/17/2021 On room air Lightheadedness resolved Echocardiogram: EF 50 to 55% Underwriting Operations Manager consulted-symptomatology not consistent with CHF as per Dr. Leon orthostatic vital signs: negative Monitor in telemetry for arrhythmias: No arrhythmias, heart rate sinus rhythm, 50s May need outpatient Zio patch Neuro consulted, CT angio head and neck recommended: Unrevealing PT/OT: Recommend discharge to home Other chronic medical conditions: HTN, HLD, CAD, history of stroke Blood pressure stable Continue lisinopril, metoprolol, Brilinta, aspirin, Crestor Disposition Discharge to home, follow-up with PCP in 1 week plan of care discussed with patient in detail and at length all questions answered He is understanding, agreeable, comfortable with the plan of care Admission and Anticipated Discharge Date Admission Date: March 15, 2021 Subjective ff up for episode of dizziness with diaphoresis, feeling clammy seen resting in bed, comfortable in good spirits states he feels much better symptoms have resolved ambulating in his room with no problems eager to go home around 1130, patient while ambulating in the hallways had diaphoresis, felt clammy again as per RN BSG 113 BP ok HR 52 on telemetry Patient participated in physical therapy later in the afternoon, walked few laps in the hallways Asymptomatic States he is ready for discharge Review of Systems Review of Systems: all noted and negative except for above Physical Exam Physical Exam: General- oriented x 3, not in distress, speaks in sentences with no effort or accessory muscle use Eyes- anicteric Neck- no JVD Lungs- clear breath sounds bilaterally, no rales/wheezes Heart- normal rate, regular rhythm; no murmurs Abdomen- normal bowel sounds, nondistended, soft, nontender Extremities- no pretibial edema, no calf tenderness Neuro- alert, oriented x 3; no gross focal neurologic deficits Skin- warm & dry Results & Data Results & Data ([facility]) Vital Signs (Past 12 Hours) Vital Signs Temp Pulse Pulse Resp BP BP Pulse Ox 03/17/21 11:43 36.8 C 53 L 20 118/72 96 03/17/21 08:23 44 L 03/17/21 07:36 36.6 C 55 L 20 116/71 97 03/17/21 03:03 60 20 117/66 92 all noted and reviewed including below
--- NOTE | 2021-03-17 16:26 | CT Scan Report ---
CT angio head w con CLINICAL HISTORY: dizziness COMPARISON STUDY: 03/11/2020 CT DOSE: TECHNIQUE: CT Angio of the brain was performed.followed by image post processing with coronal, and s agittal MIP reformats. Contrast Volume: Optiray 320, 120 ml FINDINGS: Vascular findings: There is normal enhancement within the internal carotid arteries bilaterally. Athe rosclerotic calcification of the cavernous portion of the internal carotid arteries is again seen. Th ere is normal enhancement noted within the anterior, middle and posterior cerebral arteries. There i s no evidence for significant atherosclerotic narrowing or focal stenosis. No focal aneurysm is ident ified. Nonvascular findings: There is homogeneous attenuation of the brain parenchyma bilaterally. There is no evidence for an acute infarct or cerebral edema. IMPRESSION: Essentially negative CT angiogram of the brain with contrast. No acute abnormality when compared to the previous study. ACT 112: Negative or not required by law. Electronically signed by: Azam Cochran M.D. 03/17/2021 4:25 PM
--- NOTE | 2021-03-17 16:36 | CT Scan Report ---
CT angio neck with con CLINICAL HISTORY: dizziness COMPARISON STUDY: 03/11/2020 CT DOSE: 632.12 mGy.cm TECHNIQUE: CT Angio of the neck was performed.followed by image post processing with coronal, and sa gittal MIP reformats.. Stenosis assessment by NASCET criteria. Contrast Volume: Optiray 320, 121 ml FINDINGS: Vascular findings: Right common carotid artery: There is mild atherosclerotic plaque present with no evidence for signif icant stenosis. Right internal carotid artery: There is mild atherosclerotic plaque present at the origin of the righ t internal carotid artery with no significant stenosis present.. Right vertebral artery: Compared to the previous study, the right vertebral artery is again dominant when compared to the left. Atherosclerotic narrowing is again seen. However, no focal stenosis is cory ntified. Left common carotid artery: There is again calcified and noncalcified plaque present involving the co mmon carotid artery. No significant stenosis present. However, there is significant atherosclerotic p laque present at the carotid bulb with approximately 50% stenosis present. This is slightly increased since the previous study. Left internal carotid artery: Atherosclerotic calcification is also seen involving the origin of the left internal carotid artery with no significant stenosis present. Atherosclerotic plaque is also see n involving the distal left carotid artery just prior to the cavernous sinuses.. Left vertebral artery: Compared to the previous study, the left vertebral artery is again decreased i n caliber. Atherosclerotic calcification is again seen. There is no evidence for focal stenosis. Nonvascular findings: The parotid and submandibular salivary glands appear normal. There is no enlarged cervical adenopathy noted. The airway appears patent. The thyroid gland appears within normal limits. The lung apices ap pear within normal limits. Impression: 1. Compared to previous examination, mild atherosclerotic plaque is again seen at the origins of the internal carotid arteries bilaterally without significant stenosis. 2. There is again significant increase atherosclerotic calcification involving the carotid bulb on th e left with approximately 50% stenosis present current study. 3. Dominant right vertebral artery is again seen with atherosclerotic calcification of both vertebral arteries. No focal stenosis. ACT 112: Negative or not required by law. Electronically signed by: Azam Cochran M.D. 03/17/2021 4:35 PM
--- NOTE | 2021-03-17 18:47 | Discharge Summary ---
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 Patient also complains of feeling cold in his bilateral legs chronically, no acute exacerbation. Patient was diaphoretic per EMS per chart review but was not reporting chest pain. Patient denies any fever, chest pain, palpitation, cough, headache, belly pain, acute changes in bowel or bladder habit, numbness or tingling anywhere in the body, any other review of symptoms. Patient lives alone and has his daughters/other support living nearby. 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 Denies any history of seizure or asthma or COPD or blood clot or cancer. Patient never on anticoagulation. Patient takes aspirin and Brilinta. No family history of IN or cancer or blood clot. Diabetes positive in sister and brother. Gout positive in brother. Patient does not smoke, quit 1969, smoked for 1.5 years. Patient does not drink alcohol. Patient does not do illegal/recreational drugs. Full code, discussed with the patient, does not want to be vegetative. Admission Exam (Per Admitting) Constitutional GENERAL: Alert and oriented x3. NAD, on 1L, obese HEENT: No pallor, no icterus. Pupils equal, round and reactive to light. Oral mucosa moist. Rt forehead with chronic skin changes from chronic small metallic shrapnells NECK: No JVD, no neck masses. HEART: S1 and S2 heard. Regular rate and rhythm. No murmur, no gallop. RESPIRATORY SYSTEM: Normal AP diameter. No accessory muscle use. No wheezing, b/b crackles. ABDOMEN: Soft, bowel sounds present, nontender, no distention. CENTRAL NERVOUS SYSTEM: No facial droop. Speech is clear. Obeys simple commands. Moves extremities. EXTREMITIES: No edema, no erythema seen. Discharge Data Consultations 03/15/21 09:44 ED Decision to Admit Stat 03/15/21 10:46 Consult Cardiology Routine 03/16/21 12:58 Consult Neurology Routine Procedures Performed XR chest 1V portable HISTORY: 76 years-old Male cp acute atypical chest pain COMPARISON: Chest radiograph 03/11/2020 TECHNIQUE: Portable AP view of the chest FINDINGS: Cardiac silhouette is enlarged. Prior median sternotomy. No pneumothorax, pleural effusion or overt pulmonary edema. Mild pulmonary vascular congestion with chronic interstitial coarsening of the lung bases. Degenerative changes of the shoulders and spine. IMPRESSION: Cardiomegaly with pulmonary vascular congestion. ACT 112: Negative or not required by law. The above report was generated using voice recognition software. It may contain grammatical, syntax or spelling errors. Electronically signed by: Al Mayo M.D. 03/15/2021 9:[address] SCAN OF THE BRAIN WITHOUT IV CONTRAST CLINICAL HISTORY: Dizziness. COMPARISON STUDY: CT of the brain dated 03/11/2020. TECHNIQUE: Unenhanced axial CT scan of the brain is performed from the vertex to the skull base. A dose lowering technique was utilized adhering to the principles of ALARA. CT DOSE: 614.27 mGy.cm FINDINGS: Brain parenchyma: There are age-related involutional changes noting mild subcortical and periventricular microangiopathic change. There is no hemorrhage, mass effect, or evidence of acute territorial ischemia by CT criteria. Kan- white matter differentiation is preserved. No extra-axial fluid collection is seen. Ventricles, sulci, cisterns: Prominent secondary to involutional change. Intracranial vasculature: There is atherosclerotic calcification of the cavernous carotid and vertebral arteries. Calvarium: Unremarkable. Sinuses and mastoids: The visualized paranasal sinuses are clear. The mastoid air cells are well pneumatized. Orbits: The bony orbits are grossly intact. Soft tissues: A small metallic foreign body is seen in the left frontal scalp. IMPRESSION: 1. There is no hemorrhage, mass effect, or evidence of acute territorial ischemia by CT criteria. 2. A small metallic foreign body is seen in the left frontal scalp. ACT 112: Negative or not required by law. Electronically signed by: Diego Boo M.D. 03/15/2021 2:[address] angio head w con CLINICAL HISTORY: dizziness COMPARISON STUDY: 03/11/2020 CT DOSE: TECHNIQUE: CT Angio of the brain was performed.followed by image post processing with coronal, and sagittal MIP reformats. Contrast Volume: Optiray 320, 120 ml FINDINGS: Vascular findings: There is normal enhancement within the internal carotid arteries bilaterally. Atherosclerotic calcification of the cavernous portion of the internal carotid arteries is again seen. There is normal enhancement noted within the anterior, middle and posterior cerebral arteries. There is no evidence for significant atherosclerotic narrowing or focal stenosis. No focal aneurysm is identified. Nonvascular findings: There is homogeneous attenuation of the brain parenchyma bilaterally. There is no evidence for an acute infarct or cerebral edema. IMPRESSION: Essentially negative CT angiogram of the brain with contrast. No acute abnormality when compared to the previous study. ACT 112: Negative or not required by law. Electronically signed by: Azam Cochran M.D. 03/17/2021 4:25 PM Hospital Course (1) Acute on chronic heart failure with preserved ejection fraction: Per Dr. King's notes with addendum: Episode of lightheadedness, diaphoresis Patient presented with feeling dizzy/clammy/sweaty/nauseous after waking up on the day of arrival. Admitting troponin negative, patient denies any chest pain, admitting CXR positive for cardiomegaly with pulmonary vascular congestion. History of IN x2 2008 and 2019 status post CABG x2021 and multiple stents. January 2020:: Ejection fraction 45 to 50%, grade 1 diastolic dysfunction, severe concentric LVH She is requiring 2 L oxygen to maintain saturation in the ED, was on 1 L at bedside exam, patient not on any oxygen at home. Likely transient and expect to improve with diuresis. Patient received a dose of IV Lasix in the ED, will continue with IV Lasix daily, cardiology consult, trend troponins given history of extensive cardiac disease. Echo. EKG tomorrow a.m. Telemetry monitoring. 03/17/2021 On room air Lightheadedness resolved Echocardiogram: EF 50 to 55% Low Emission Automobile Designer consulted-symptomatology not consistent with CHF as per Dr. Leon orthostatic vital signs: negative telemetry: No arrhythmias, heart rate sinus rhythm, 50s May need outpatient Zio patch CT head: no acute process Neuro consulted, CT angio head and neck recommended: Unrevealing PT/OT: Recommend discharge to home Other chronic medical conditions: HTN, HLD, CAD, history of stroke Blood pressure stable Continue lisinopril, metoprolol, Brilinta, aspirin, Crestor Disposition Discharge to home, follow-up with PCP in 1 week plan of care discussed with patient in detail and at length all questions answered He is understanding, agreeable, comfortable with the plan of care
[2021-03-18 07:58] LABS: Estimated Average Glucose 123 mg/dl; Hemoglobin A1C 5.9 % (4.5-5.6)
--- NOTE | 2021-03-28 13:48 | Coding Query ---
CODING QUERY To promote full compliance with coding requirements relating to patient care, provider participation is requested in all cases of heating and air conditioning mechanic uncertainty. Please assist us with the question(s) below: Coding Question(s): Acute on Chronic heart failure with preserved ejection fraction (Acute on Chronic Diastolic heart failure) is documented throughout the record and on the Discharge Summary, however, the Discharge Summary also documents, "Frame Wirer consulted-symptomatology not consistent with CHF as per Dr. Leon", and the Cardiology Consult on 03/16 documents, "I do not believe the patient is in heart failure and I believe the IV Lasix can be discontinued. His BNP is 110 which would lead us away from the diagnosis of acute diastolic heart failure". Please specify, below, in your clinical opinion, regarding the heart failure. ( ) Acute on Chronic heart failure with preserved ejection fraction (Acute on Chronic Diastolic CHF) ( x ) Chronic heart failure with preserved ejection fraction (Chronic Diastolic CHF) ( ) Other Heart Failure: Please Specify ( ) No Heart Failure Physician's Response(s): Thank you Ann Mehta Principal Diagnosis: "that condition established after study, to be chiefly responsible for occasioning the admission of the patient to the hospital for care." Co-Existing Principal Diagnosis: "when two or more diagnoses equally meet the criteria for principal diagnosis as determined by the circumstances of admission, diagnostic work up, and/or therapy provided, and the Alphabetic Index, Tabular List, or another coding guideline does not provide sequencing direction, any one of the diagnoses may be sequenced first." "When the physician has documented what appears to be a current diagnosis in the body of the record, but has not included the diagnosis in the final diagnostic statement, the physician should be asked whether the diagnosis should be added." ([facility] 2 QTR90. p3-4) BRIGHT
--- NOTE | 2021-03-28 14:00 | Coding Query ---
CODING QUERY To promote full compliance with coding requirements relating to patient care, provider participation is requested in all cases of director global intelligence uncertainty. Please assist us with the question(s) below: Coding Question(s): Documentation shows the patient presented with lightheadedness/dizzy and nausea and diaphoresis. The chart documents heart failure and the 03/[address] Kirti Sanders documents, "This patient gives a vaguely described history of instability, mild nausea and diaphoresis. The differential is broad, but he does note that he rolled in bed to the left when this episode came on and had a very similar, but very brief episode while hospitalized. This suggests a benign positional vertigo due to the aforementioned and the absence of other neurologic symptoms. This patient certainly has vascular risk factors and intracranial and extracranial stenosis. Recommend a CTA of the head and neck to exclude for instance a progressive vertebral stenosis or occlusion or basilar stenosis or occlusion. I doubt that these are the case. In the absence of any progressive or basilar occlusion, I would continue his ongoing risk factor modification, Brilinta and aspirin. His lipids should be assessed and goal LDL would be 70 or less. It is also possible that he is symptomatic for bradycardia. He likely needs a radiographer cardiac catheterization upon discharge. Orthostasis is a possibility, although he has not been proven to be orthostatic and the initial episode was initially provoked by turning his head to the left. Once that CTA of the head and neck are performed, I have no objection to him being discharged on the same antiplatelet therapy. If there is worsening atherosclerosis in the intracranial or extracranial circulation. Please refer him back to me or if he continues to have episodes.". Please specify below, the most likely source for the lightheadedness/dizzy and nausea and diaphoresis. ( ) most likely was caused by heart failure ( ) most likely was caused by symptomatic bradycardia ( x) most likely was caused by Benign Positional Vertigo ( ) most likely was caused by Other: Please Specify ( ) Unknown possible cause Physician's Response(s): Thank you Ann Mehta Principal Diagnosis: "that condition established after study, to be chiefly responsible for occasioning the admission of the patient to the hospital for care." Co-Existing Principal Diagnosis: "when two or more diagnoses equally meet the criteria for principal diagnosis as determined by the circumstances of admission, diagnostic work up, and/or therapy provided, and the Alphabetic Index, Tabular List, or another coding guideline does not provide sequencing direction, any one of the diagnoses may be sequenced first." "When the physician has documented what appears to be a current diagnosis in the body of the record, but has not included the diagnosis in the final diagnostic statement, the physician should be asked whether the diagnosis should be added." (Source [facility] 2 QTR90. p3-4) BRIGHT
== END 2021-03-17 15:30 | disposition home or self-care (01) | DRG 149 ==
LOC: ED 08:28 → EDINP 10:38 → SUATTDRO 10:38 → 2N 12:03